=== PATIENT | male | born 1945 | race Caucasian/White ===

== ENCOUNTER 2016-12-06 09:37 | Inpatient (IN) | payer OTHER, MEDICARE ==
[~2016-12-06] VITALS: Ht 175.3 cm; Wt 88.4 kg
[2016-12-06] VITALS (17 sets, daily range): BP systolic 97–138; BP diastolic 61–82; PULSE 75–116; RESP 16–18; TEMP 98–98.6; O2SAT 94–100
[~2016-12-06 09:37] MED LIST: ASPI81 PO; DILT180C PO; FOLI1TAB PO; ISOS30TA17 PO; KLOR20TA6 PO; LAMO150T PO; LEVE500 PO; MAGN400 PO; MORP30SU PO; MSIR15 PO; NAPR500 PO; NITR.4 SL; PRAV40TA PO; PROZ20CA11 PO; RANI300T PO; REME30TA PO; VITA-13 PO; VITA10002 PO; XALA0.00 EACH EYE; [UNRECOGNIZED DRUG - CODE] TOP
[2016-12-06] MEDS ORDERED: NITROGLYCERIN 2% OINT 1 GM PACKET TOP ONE (10:00)
[2016-12-06] MEDS ORDERED: SODIUM CHLORID 0.9% 500 ML INJ 500 ML IV ONE (10:00)
[2016-12-06] MEDS ORDERED: SODIUM CHLORIDE 0.9% FLUSH 10 ML FLUSH IVF PRN (10:00)
[2016-12-06] MEDS ORDERED: ASPIRIN 81 MG CHEW TAB PO ONE (10:00)
[2016-12-06] MEDS ORDERED: DILTIAZEM HCL 25 MG/5 ML VIAL IVP ONE (10:15)
[2016-12-06] MEDS ORDERED: DILTIAZEM INJ 125 MG in SODIUM CHLORIDE 0.9% INJ 100 ML IV SCH (10:15)
[2016-12-06 10:23] LABS: AUTOMATED NEUTROPHIL # 3.1 TH/MM3 (1.8-7.7); BASOPHIL % 0.4 % (0.0-2.0); EOSINOPHIL % 0.5 % (0.0-4.0); HEMATOCRIT 46.2 % (39.0-51.0); HEMO FLAGS DIFF FINAL; LYMPH % 31.7 % (9.0-44.0); LYMPHOCYTE # 1.8 TH/MM3 (1.0-4.8); MEAN CELL VOLUME 83.8 FL (80.0-100.0); MEAN CORPUSCULAR HEMOGLOBIN 29.7 PG (27.0-34.0); MEAN CORPUSCULAR HGB CONC 35.4 % (32.0-36.0); NEUT % 55.4 % (16.0-70.0); PLATELET COUNT 150 TH/MM3 (150-450); RED BLOOD COUNT 5.51 MIL/MM3 (4.50-5.90); RED CELL DISTRIBUTION WIDTH 13.6 % (11.6-17.2); WHITE BLOOD COUNT 5.5 TH/MM3 (4.0-11.0)
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
[2016-12-06 10:32] LABS: APTT (PATIENT) 27.1 SEC (24.3-30.1); INTERNATIONAL NORMALIZED RATIO 1.1 RATIO; PROTHROMBIN TIME - PATIENT 11.8 SEC (9.8-11.6)
--- NOTE | 2016-12-06 10:34 | RADRPT ---
EXAM DATE/TIME: 12/06/2016 10:00 [facility] COMPARISON: CHEST SINGLE AP, February 03, 2016, 14:08. INDICATIONS : Chest pain that started today. MEDICAL HISTORY : Diabetes mellitus type II. Seizures. Cardiovascular disease Hypertension. SURGICAL HISTORY : None. ENCOUNTER: Initial ACUITY: 1 day PAIN SCORE: 10/10 LOCATION: Bilateral chest FINDINGS: A single view of the chest demonstrates the lungs to be symmetrically aerated without evidence of mas s, infiltrate or effusion. The cardiomediastinal contours are unremarkable. Osseous structures are intact. CONCLUSION: No acute disease. Eduardo Morocho MD on December 06, 2016 at 10:32 Board Certified Radiologist. This report was verified electronically.
[2016-12-06 10:36] LABS: ALT (GPT) 26 U/L (12-78); ANION GAP 11 MEQ/L (5-15); AST (GOT) 29 U/L (15-37); BICARBONATE 22.8 MEQ/L (21.0-32.0); BLOOD UREA NITROGEN 17 MG/DL (7-18); CHLORIDE 103 MEQ/L (98-107); GLOMERULAR FILTRATION RATE 58 ML/MIN (>89); MAGNESIUM 1.5 MG/DL (1.5-2.5); POTASSIUM 3.4 MEQ/L (3.5-5.1); SODIUM (NA) 137 MEQ/L (136-145)
[2016-12-06 10:40] LABS: ALKALINE PHOSPHATASE 42 U/L (45-117); TOTAL BILIRUBIN ADULT 0.5 MG/DL (0.2-1.0)
[2016-12-06] MEDS ORDERED: HEPARIN SODIUM - IV 10,000 UNITS/10 ML VIAL IV ONE (11:00)
--- NOTE | 2016-12-06 11:41 | HHI.HP ---
HPI Service [facility] Primary Care Physician [facility] Admission Diagnosis NSTEMI, Afib RVR Diagnoses: (1) NSTEMI (non-ST elevated myocardial infarction) (2) Atrial fibrillation with RVR Chief Complaint: Chest pain Travel History International Travel<30 Days: No Contact w/Intl Traveler <30 Da: No Traveled to Known Affected Are: No History of Present Illness Before meals 11 year-old male with a history of atrial fibrillation, diabetes type 2, legally blind in previous OR was brought to the ED by EMS for evaluation of substernal chest pain rated 8/10 in intensity associated with diaphoresis, shortness of breath and radiation across his chest. Patient states around 4:30 AM this morning he first experienced chest pressure, and decided to reach inside of his pocket to get his nitroglycerin sublingual however was unable to find his bottle. Patient reports that about a week ago he had his medication refill and may have taken only 3-4 pills over the past 7 days. As the the pain progressively got worse after 40 minutes, he call EMS. Patient was found to be in A. fib with RVR EMS, and his chest pain resolved with nitroglycerin. On arrival in ED he was free of chest pain. During my exam he denies any chest pain, shortness of breath. He has no GI bleed. Review of Systems Other 12 systems reviewed and are negative except for the ones mentioned in the history of present illness Past Family Social History Past Medical History Migraines Coronary artery disease COPD Seizure disorder- on Keppra, and Lamictal History of CVA, with posterior circulation infarct seen on CT imaging, and old lacunar type infarct in the right thalamus. 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 fib- on diltiazem, no blood thinners seen on his medication list but he states he is on a blood thinner Past Surgical History Left eye Reported Medications See EMR Allergies: Coded Allergies: Simvastatin (Verified Allergy, Severe, 03/05/16) PT STATES NOT ALLERGIC Tylenol (Verified Allergy, Severe, STATES DOCTOR SAID NOT TO TAKE IT., ) Family History Dad: heart disease Mom: lived to be 99 Social History Alcohol Use: Yes (RARE) Tobacco Use: Yes (1.5 PPD/ TRYING TO CUT BACK ) Physical Exam Vital Signs Vital Signs Date Time Temp Pulse Resp B/P Pulse Ox O2 Delivery O2 Flow Rate FiO2 12/06/16 11:15 87 16 123/79 95 Room Air 12/06/16 10:47 82 18 112/61 95 Room Air 12/06/16 10:40 94 Room Air 12/06/16 10:40 110 116/69 12/06/16 10:40 94 Room Air 12/06/16 09:54 116 18 94 Room Air 12/06/16 09:52 116 18 132/75 94 Room Air 12/06/16 09:43 98.1 106 18 132/75 94 Physical Exam GENERAL: This is a well-nourished, well-developed patient, in no apparent distress. SKIN: No rashes, ecchymoses or lesions. Cool and dry. HEAD: Atraumatic. Normocephalic. No temporal or scalp tenderness. EYES: Pupils equal round and reactive. Extraocular motions intact. No scleral icterus. No injection or drainage. ENT: Nose without bleeding, purulent drainage or septal hematoma. Throat without erythema, tonsillar hypertrophy or exudate. Uvula midline. Airway patent. NECK: Trachea midline. No JVD or lymphadenopathy. Supple, nontender, no meningeal signs. CARDIOVASCULAR: Regular rate and rhythm without murmurs, gallops, or rubs. RESPIRATORY: Clear to auscultation. Breath sounds equal bilaterally. No wheezes , rales, or rhonchi. GASTROINTESTINAL: Abdomen soft, non-tender, nondistended. No hepato-splenomegaly , or palpable masses. No guarding. MUSCULOSKELETAL: Extremities without clubbing, cyanosis, or edema. No joint tenderness, effusion, or edema noted. No calf tenderness. Negative Homans sign bilaterally. NEUROLOGICAL: Awake and alert. Cranial nerves II through XII intact. Motor and sensory grossly within normal limits. Five out of 5 muscle strength in all muscle groups. Normal speech. Laboratory Laboratory Tests Test 12/06/16 10:00 White Blood Count 5.5 Red Blood Count 5.51 Hemoglobin 16.3 Hematocrit 46.2 Mean Corpuscular Volume 83.8 Mean Corpuscular Hemoglobin 29.7 Mean Corpuscular Hemoglobin 35.4 Concent Red Cell Distribution Width 13.6 Platelet Count 150 Mean Platelet Volume 10.1 Neutrophils (%) (Auto) 55.4 Lymphocytes (%) (Auto) 31.7 Monocytes (%) (Auto) 12.0 Eosinophils (%) (Auto) 0.5 Basophils (%) (Auto) 0.4 Neutrophils # (Auto) 3.1 Lymphocytes # (Auto) 1.8 Monocytes # (Auto) 0.7 Eosinophils # (Auto) 0.0 Basophils # (Auto) 0.0 CBC Comment DIFF FINAL Differential Comment Prothrombin Time 11.8 Prothromb Time International 1.1 Ratio Activated Partial 27.1 Thromboplast Time Sodium Level 137 Potassium Level 3.4 Chloride Level 103 Carbon Dioxide Level 22.8 Anion Gap 11 Blood Urea Nitrogen 17 Creatinine 1.23 Estimat Glomerular Filtration 58 Rate Random Glucose 209 Calcium Level 8.7 Magnesium Level 1.5 Total Bilirubin 0.5 Aspartate Amino Transf 29 (AST/SGOT) Alanine Aminotransferase 26 (ALT/SGPT) Alkaline Phosphatase 42 Troponin I 1.19 B-Type Natriuretic Peptide 176 Total Protein 7.4 Albumin 3.2 Result Diagram: 12/06/16 1000 12/06/16 1000 Imaging Last Impressions Chest X-Ray 12/06/16 0955 Signed Impressions: Service Date/Time: Tuesday, December 06, 2016 10:00 - CONCLUSION: No acute disease. Eduardo Morocho MD Assessment and Plan Problem List: (1) NSTEMI (non-ST elevated myocardial infarction) ICD Code: I21.4 Status: Acute (2) Atrial fibrillation with RVR ICD Code: I48.91 Status: Acute (3) Diabetes mellitus, type II ICD Code: E11.9 Status: Acute (4) Benign hypertension ICD Code: I10 Status: Acute (5) Hyperlipidemia ICD Code: E78.5 Status: Acute (6) Hypokalemia ICD Code: E87.6 Status: Resolved (7) History of seizure ICD Code: Z87.898 Status: Acute Assessment and Plan 71-year-old man with Non-ST elevation OR: Continue ACS rule out per protocol with serial cardiac enzyme and EKG.cardiology consultation pending for evaluation for possible left heart catheterization. Check 2-D echo. Went with heparin drip/Nitropaste/beta loreto/Imdur/statin/ASA Atrial fibrillation rapid ventricular response: ACS ruled out per protocol; currently on Cardizem drip pending cardiology consultation Diabetes type 2: Hold oral hypoglycemic agent, start insulin sliding scale with fingerstick blood glucose monitoring Hyperlipidemia, hypertension, seizure disorder, diabetic neuropathy: Resume outpatient medications Hypokalemia: Replace electrolyte DVT prophylaxis: Heparin Code Status Full code Discussed Condition With Patient, ED physician Physician Certification 2 Midnight Certification Type: Admission for Inpatient Services Order for Inpatient Services The services are ordered in accordance with Medicare regulations or non- Medicare payer requirements, as applicable. In the case of services not specified as inpatient-only, they are appropriately provided as inpatient services in accordance with the 2-midnight benchmark. Estimated LOS (days): 2 days is the estimated time the patient will need to remain in the hospital, assuming treatment plan goals are met and no additional complications. Post-Hospital Plan: Not yet determined Riley Nava MD Dec 06, 2016 11:41
[2016-12-06] MEDS: HEPARIN-D5W INJ 250 ML IV SCH ×2 (11:43→20:27)
[2016-12-06] MEDS ORDERED: SODIUM CHLORIDE 0.9% FLUSH 10 ML FLUSH IV FLUSH PRN (11:45)
[2016-12-06] MEDS ORDERED: ACETAMINOPHEN/HYDROcodone 325 MG/7.5 MG TAB PO PRN (11:45)
[2016-12-06] MEDS ORDERED: ACETAMINOPHEN 500 MG CPLT PO PRN (11:45)
[2016-12-06] MEDS ORDERED: NITROGLYCERIN 2% OINT 1 GM PACKET TOP SCH (12:00)
[2016-12-06] MEDS ORDERED: GLUCAGON 1 MG/ML VIAL OTHER PRN (12:30)
[2016-12-06] MEDS ORDERED: DEXTROSE 50% IN WATER 50 ML VIAL(D50) IV PUSH PRN (12:30)
[2016-12-06] MEDS ORDERED: RESP: ALBUTEROL 2.5 MG/IPRATROPIUM 0.5 MG NEB (PRN) NEB (12:45)
[2016-12-06] MEDS ORDERED: NITROGLYCERIN-DEXTROSE INJ 250 ML ONE (12:54)
[2016-12-06] MEDS: ALUMINUM/MAGNESIUM/SIMETH 30 ML CUP PO SCH ×3 (13:00→20:26)
[2016-12-06] MEDS ORDERED: NAPR500T5 (13:31)
[2016-12-06] MEDS ORDERED: DILT180C56 PO (13:31)
[2016-12-06] MEDS ORDERED: NITR0.4S SL (13:31)
[2016-12-06] MEDS ORDERED: LEVE750T8 PO (13:31)
[2016-12-06] MEDS ORDERED: POTA-163 PO (13:31)
[2016-12-06] MEDS ORDERED: ASPI81CH CHEW (13:31)
[2016-12-06] MEDS ORDERED: ISOS30TA3 PO (13:31)
[2016-12-06] MEDS ORDERED: VITA100021 SL (13:31)
[2016-12-06] MEDS ORDERED: D-20TAB3 PO (13:31)
[2016-12-06] MEDS ORDERED: PRAV40TA2 PO (13:31)
[2016-12-06] MEDS ORDERED: POTASSIUM CHLORIDE 20 MEQ CONTROLLED RELEASE TAB PO ONE (14:00)
[2016-12-06] MEDS ORDERED: IOHEXOL 350 MG/ML 100 ML BTL (for Cath Lab) OTHER ONE (14:12)
[2016-12-06] MEDS ORDERED: HEPARIN-NS/PF INJ 500 ML ONE (14:27)
[2016-12-06] MEDS ORDERED: HEPARIN SODIUM - IV 10,000 UNITS/10 ML VIAL ONE (14:28)
[2016-12-06] MEDS ORDERED: VERAPAMIL HCL 5 MG/2 ML VIAL ONE (14:28)
[2016-12-06] MEDS ORDERED: MIDAZOLAM HCL 2 MG/2 ML VIAL ONE (14:28)
--- NOTE | 2016-12-06 14:37 | EKG ---
Date Performed: 12/06/2016 Time Performed: 12:41:11 PTAGE: 71 years EKG: ATRIAL FIBRILLATION MARKED LEFT AXIS DEVIATION LEFT BUNDLE BRANCH BLOCK ABNORMAL ECG NO SIG NIFICANT CHANGE FROM PRIOR ELECTROCARDIOGRAM. PREVIOUS TRACING : 03/05/2016 10.42 DOCTOR: Ezio Park Interpretating Date/Time 12/06/2016 14:36:07
--- NOTE | 2016-12-06 14:50 | EKG ---
Date Performed: 12/06/2016 Time Performed: 09:49:02 PTAGE: 71 years EKG: ATRIAL FIBRILLATION WITH RAPID VENTRICULAR RESPONSE INFERIOR MYOCARDIAL INFARCTION ABNORMAL ECG NO PREVIOUS TRACING DOCTOR: Ezio Park Interpretating Date/Time 12/06/2016 14:48:45
[2016-12-06] MEDS: INSULIN ASPART SUPPLEMENTAL SCALE SQ SCH ×2 (16:00→20:29)
[2016-12-06] MEDS ORDERED: HEPARIN SODIUM - IV 10,000 UNITS/10 ML VIAL IV PRN ×2 (17:00)
[2016-12-06] MEDS ORDERED: CEFAZOLIN INJ 500 MG in SODIUM CHLORIDE 0.9% IRR BTL 500 ML IRRIGATION SCH (17:30)
[2016-12-06] MEDS ORDERED: CHLORHEXIDINE GLUCONATE 4% SOLN 120 ML BTL TOPICAL SCH (17:30)
[2016-12-06] MEDS ORDERED: ceFAZolin 2 GM PREMIX 50 ML IV SCH (17:30)
[2016-12-06] MEDS ORDERED: PAPAVERINE INJ 60 MG, NITROGLYCERIN INJ 100 MCG, DILTIAZEM INJ 100 MG in SODIUM CHLORID... IRRIGATION SCH (17:30)
[2016-12-06] MEDS ORDERED: METOPROLOL TARTRATE 25 MG TAB PO SCH (17:30)
[2016-12-06] MEDS ORDERED: INSULIN REGULAR (IV INFUSION) 100 UNITS in SODIUM CHLORIDE 0.9% INJ 100 ML IV SCH (17:30)
[2016-12-06] MEDS ORDERED: PROZ20CA11 PO (17:47)
[2016-12-06] MEDS ORDERED: MSIR15 PO (17:47)
[2016-12-06] MEDS ORDERED: RANI150T PO (17:47)
[2016-12-06] MEDS ORDERED: LATA.005%O EACH EYE (17:47)
[2016-12-06] MEDS ORDERED: LAMO150T PO (17:47)
[2016-12-06] MEDS ORDERED: MORP1TAB25 PO (17:47)
[2016-12-06] MEDS ORDERED: FOLI1TAB4 PO (17:47)
[2016-12-06] MEDS ORDERED: MAGN400T2 PO (17:47)
[2016-12-06] MEDS ORDERED: REME30TA PO (17:47)
[2016-12-06 19:14] LABS: APTT (PATIENT) 35.7 SEC (24.3-30.1)
[2016-12-06] MEDS: SODIUM CHLORIDE 0.9% FLUSH 10 ML FLUSH IV FLUSH SCH (20:26)
[2016-12-06] MEDS: levETIRAcetam 250 MG TAB PO SCH (20:30)
[2016-12-06] MEDS ORDERED: TEMAZEPAM 15 MG CAP PO PRN (21:00)
[2016-12-06 22:20] LABS: HEMOGLOBIN A1a 0.7 %; HEMOGLOBIN Ao 82.8 %; HEMOGLOBIN LA1C 2.7 %
[2016-12-07] VITALS (25 sets, daily range): BP systolic 102–130; BP diastolic 64–80; PULSE 66–99; RESP 16–19; TEMP 97.6–98.5; O2SAT 95–98
[2016-12-07 00:06] LABS: BLOOD, URINE NEG (NEG); COMMENT (UR) CULT NOT INDICATED; CULTURE IF INDICATED CULT NOT INDICATED; GLUCOSE,URINE 300 mg/dL (NEG); KETONE, URINE NEG (NEG); MUCUS URINE FEW /lpf (OCC); NITRITE,URINE NEG (NEG); SQUAMOUS EPITHELIAL CELL URINE <1 /hpf (0-5); URINE COLOR YELLOW (YELLW/STRAW)
[2016-12-07 02:39] LABS: AUTOMATED NEUTROPHIL # 2.3 TH/MM3 (1.8-7.7); BASOPHIL % 0.7 % (0.0-2.0); EOSINOPHIL # 0.1 TH/MM3 (0-0.4); EOSINOPHIL % 1.4 % (0.0-4.0); HEMATOCRIT 41.4 % (39.0-51.0); HEMO FLAGS DIFF FINAL; LYMPH % 44.5 % (9.0-44.0); LYMPHOCYTE # 2.3 TH/MM3 (1.0-4.8); MEAN CELL VOLUME 83.8 FL (80.0-100.0); MEAN CORPUSCULAR HEMOGLOBIN 29.5 PG (27.0-34.0); MEAN CORPUSCULAR HGB CONC 35.2 % (32.0-36.0); MONO % 9.1 % (0.0-8.0); NEUT % 44.3 % (16.0-70.0); PLATELET COUNT 150 TH/MM3 (150-450); RED BLOOD COUNT 4.93 MIL/MM3 (4.50-5.90); RED CELL DISTRIBUTION WIDTH 13.8 % (11.6-17.2); WHITE BLOOD COUNT 5.3 TH/MM3 (4.0-11.0)
[2016-12-07 02:49] LABS: APTT (PATIENT) 42.5 SEC (24.3-30.1)
[2016-12-07 03:17] LABS: ANION GAP 7 MEQ/L (5-15); BICARBONATE 26.6 MEQ/L (21.0-32.0); BLOOD UREA NITROGEN 17 MG/DL (7-18); CHLORIDE 107 MEQ/L (98-107); GLOMERULAR FILTRATION RATE 81 ML/MIN (>89); HDL CHOLESTEROL 19.4 MG/DL (40.0-60.0); LDL CHOLESTEROL 66 MG/DL (0-99); POTASSIUM 3.7 MEQ/L (3.5-5.1); SODIUM (NA) 141 MEQ/L (136-145)
--- NOTE | 2016-12-07 05:31 | MB ---
cc: MARIZOL BANKS DATE OF CONSULTATION 12/06/2016 DATE OF 1945 HISTORY OF PRESENT ILLNESS A 71-year-old male patient of the [place], apparently has been having chest pain on and off for the past seven days, has used about 3 to 4 nitros, woke up about 04:30 this morning with substernal chest pain 8 out of 10, diaphoresis, shortness of breath, could not find his bottle of nitro, presented to the emergency room. He was found to have a non-STEMI. He was also found to be in atrial fibrillation with RVR, was on a Cardizem drip which has since been discontinued. The patient went to the [facility] by Dr. Chairez and showed an 80% proximal LAD, mid-distal LAD 80%, diagonal 70%. The circ was 20%, OM2 80%. The IFR of the approximately LAD was 0.69. Echo is pending to evaluate his ejection fraction. We were consulted to evaluate for coronary artery bypass grafting. PAST MEDICAL HISTORY 1. Coronary artery disease. Apparently, per the patient he has had multiple MIs in the past, yet he has not had kind of heart catheterization. 2. He did have a bilateral occipital stroke in 1994 with residual cortical blindness and seizure disorder. 3. Ulnar neuropathy. 4. Gastroesophageal reflux disease. 5. Osteoarthritis. 6. Syncope. 7. Hyperlipidemia 8. Tobacco abuse. 9. Moderate major depression disorder. 10. Anxiety. 11. Seizure disorder. 12. Insomnia. 13. Legally blind. 13. History of atrial fibrillation. PAST SURGICAL HISTORY No past surgical history per the patient. ALLERGIES SIMVASTATIN. TYLENOL. HOMES MEDICATIONS 1. Aspirin. 2. Vitamin D3. 3. Cardizem. 4. Imdur. 5. Lantoprost eye drops. 6. Keppra. 7. Morphine sulfate; he takes 15 mg q. 12 p.r.n. for pain. 8. For breakthrough otherwise he has morphine 30 one p.o. b.i.d. for pain. 9. Nitro p.r.n. FAMILY HISTORY Father had history of heart disease. Mother lived to be the age of 99. SOCIAL HISTORY The patient lives alone, continues to smoke 1-1/2 packs per day. REVIEW OF SYSTEMS IN GENERAL: No night sweats, fever, heat and cold intolerance. SKIN: No psoriasis, itch nor hives. HEENT: The patient is again legally blind. No hearing loss. RESPIRATORY: Some shortness of breath. CARDIOVASCULAR: As above in the HPI. GASTROINTESTINAL: No diarrhea, vomiting. GENITOURINARY: No burning, frequency, urgency. 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 ENDOCRINOLOGY: Positive for diabetes mellitus type 2. PHYSICAL EXAMINATION VITAL SIGNS: Blood pressure 120/70, heart rate of 86, O2 sat 98 on 2 liters. GENERAL: The patient is awake and alert. HEAD: Normocephalic, atraumatic. Oral mucosa pink, moist. NECK: Supple. No JVD. HEART SOUNDS: S1-S2. Regular rate and rhythm. No audible rubs, murmurs, gallops. LUNGS: He has got some faint expiratory wheeze, equal bilaterally. ABDOMEN: Obese, soft, nontender. EXTREMITIES: No cyanosis, clubbing or edema. LABORATORY FINDINGS Hemoglobin 16, hematocrit of 46, white cell count of 5.5, platelet count 150. Sodium 137, potassium 3.4, BUN of 17, creatinine 1.23, glucose 209. Troponin 1.19, INR 1.1. CHEST X-RAY No acute disease. IMPRESSION 1. This is a 71-year-old [facility] patient with a non-STEMI, multivessel disease. EF is pending per echocardiogram. The cardiac cath films will be reviewed by Dr. Marizol Banks to evaluate for possible surgery. Full workup is still pending. 2. Diabetes mellitus. 3. Legally blind. 4. History of atrial fibrillation. 5. History of CVA with old lacunar infarct in the right thalamus. 6. Nicotine dependence. 7. Anxiety. 8. Seizure disorder. 9. Depression. 10. Further planning and timing for surgery as per Dr. Marizol Banks. Dictated by: PEDRO LUIS Dukes MD NABIL Patrick/JULIETTE /5:23 PM /8:27 AM
--- NOTE | 2016-12-07 06:54 | EKG ---
Date Performed: 12/06/2016 Time Performed: 22:21:08 PTAGE: 71 years EKG: Probable atrial fibrillation with borderline controlled response. Left axis deviation IV co nduction defect Inferior infarct - age undetermined Nonspecific ST-T wave changes Abnormal ECG COMPAR ED TO PRIOR ELECTROCARDIOGRAM, T wave changes are more prominent. PREVIOUS TRACING : 12/06/2016 12.41 DOCTOR: Ezio Park Interpretating Date/Time 12/07/2016 06:52:59
[2016-12-07] MEDS: INSULIN ASPART SUPPLEMENTAL SCALE SQ SCH ×4 (07:00→20:45)
[2016-12-07] MEDS: ASPIRIN 81 MG CHEW TAB PO SCH (07:47)
[2016-12-07] MEDS: PRAVASTATIN SOD 40 MG TAB PO SCH (07:47)
[2016-12-07] MEDS: ALUMINUM/MAGNESIUM/SIMETH 30 ML CUP PO SCH ×5 (07:47→20:52)
[2016-12-07] MEDS: SODIUM CHLORIDE 0.9% FLUSH 10 ML FLUSH IV FLUSH SCH ×2 (07:48→20:50)
[2016-12-07] MEDS: MORPHINE SULFATE 4 MG/ML INJ IV PRN ×2 (07:51→16:28)
--- NOTE | 2016-12-07 07:53 | MB ---
cc: SAW BEAULIEU DO DATE OF CONSULTATION 12/06/2016 REASON FOR CONSULTATION NSTEMI with chest pain. HISTORY OF PRESENT ILLNESS Mr. Holman is a pleasant 71-year-old male who presents to [facility] emergency room on December 06, 2016 due to chest pain. He states that he woke up around 05:00 a.m. this morning and he experienced chest pressure. The chest pressure was in the center of his chest and is his typical anginal symptoms for sometime. He went to take his nitroglycerin and was unable to find his bottle within his pocket. Chest pressure got worse and he decided he should call 9-1-1. Per EMS, the patient had empty bottles of nitroglycerin all over the house, but when asking the patient about this, he states that some of those are from years ago and he has just not thrown them away. It appears that he takes usually a nitroglycerin almost every day, however over the past few days, he has been taking three to four nitroglycerin. On arrival to the emergency room, he was found to be in the atrial fibrillation with RVR and started on a Cardizem drip. He also was having chest pain and was given nitroglycerin and the chest pain stopped. On my seeing him, he is currently hemodynamically stable, although blood pressure is mildly low. His heart rate has now been controlled on a Cardizem drip at 5 mg per hour and I have since stopped his Cardizem drip. He was starting to have some chest pain when I saw him so he was started on a nitroglycerin drip. PAST MEDICAL HISTORY 1. Coronary artery disease 2. Migraines 3. Atrial fibrillation 4. COPD 5. Seizure disorder 6. History of CVA. 7. History of encephalopathy. 8. 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 PAST SURGICAL HISTORY Surgery on his left thigh. ALLERGIES 1. SIMVASTATIN FOR WHICH THE PATIENT STATES HE IS NOT ALLERGIC. 2. TYLENOL MEDICATIONS 1. Magnesium oxide 400 mg daily 2. Lamotrigine 150 mg b.i.d. 3. Keppra 750 mg b.i.d. 4. Prozac 20 mg daily 5. Remeron 30 mg every night 6. Cardizem CD 180 mg daily 7. Ranitidine 150 mg daily 8. Pravastatin 40 mg daily 9. Imdur ER 30 mg daily 10. Nitro sublingual as needed 11. Aspirin 81 mg daily 12. Morphine ER 30 mg b.i.d. 13. Morphine IR 15 mg every 6 hours as needed for pain 14. Xalatan ophthalmic drops each eye every night 15. Potassium chloride 20 mEq daily 16. Folate 1 mg daily FAMILY HISTORY Denies premature coronary artery disease or sudden cardiac within the family. SOCIAL HISTORY The patient drinks alcohol rarely. He does continue to smoke and smokes anywhere from three-quarters of a pack to two packs per day with an average of 1.5 packs per day. He is legally blind. His neighbor helps with his pills weekly. REVIEW OF SYSTEMS 14-systems were reviewed including osteopathic pertinent positives and negatives as above, otherwise negative. PHYSICAL EXAMINATION VITAL SIGNS: Temperature 98.1, heart rate 85, blood pressure 97/67, respirations 18, pulse ox 100% on two liters. GENERAL: The patient appears in mild distress due to chest pain. Alert awake and oriented x3. He looks older than his stated age. HEAD, EYES, EARS, NOSE, AND THROAT: Pupils are round, equal and reactive. Mucous membranes moist. NECK: Supple. No JVD at 45 degrees. No carotid bruits heard bilaterally. Carotid upstroke is brisk in nature. HEART: Irregularly irregular. Positive first and second heart sounds with no murmurs, gallops or rubs. LUNGS: Decreased breath sounds bilaterally but no overt wheezes, rales or rhonchi. ABDOMEN: Soft, nontender, nondistended. No organomegaly noted. EXTREMITIES: Show no clubbing, cyanosis or edema. Femoral and distal pulses intact bilaterally. NEUROLOGIC: No focal deficits. SKIN: Warm, dry and intact. OSTEOPATHIC: Mild lordosis. No kyphoscoliosis or paraspinal tender points. LABORATORY FINDINGS Hemoglobin 16.3, hematocrit 46.2, platelets 150. Potassium 3.4, BUN 17, creatinine 1.23, troponin 1.19, BNP 176. Electrocardiogram (December 06, 2016 at 1241) atrial fibrillation, left axis deviation, left bundle branch block. IMPRESSIONS 1. Chest pain concerning for angina. 1. NSTEMI 2. A. fib with RVR on arrival with a history of paroxysmal atrial fibrillation 3. Diabetes mellitus type 2 4. Hypertension 5. Hyperlipidemia 6. History of seizures. 7. Legal blindness 8. Tobacco abuse 9. History of CVA. RECOMMENDATIONS 1. Mr. Holman appears to have had an anginal episode this morning and has troponins which are positive. Because of this, as well as his current chest pain, he has been started on a heparin drip and started on a nitroglycerin drip. 2. He will be taken to the manager cath lab as soon as possible. Risks, benefits and alternatives were explained to him and he consents to such. 3. His atrial fibrillation is currently controlled and because of his hypotension, I stopped his Cardizem drip. 4. As far as anticoagulation long-term for his atrial fibrillation, it appears that he sees someone at the [facility] and they did not feel he was an anticoagulation candidate. In discussing with him, he has a tendency to have falls and I agree that he most likely is not a long-term anticoagulation candidate. 5. We will check a 2-D echo to look at his overall left ventricular function, cardiac structure and possible valvulopathies. 6. I spoke to him for greater than three minutes about tobacco cessation which he is attempting to cut down. 7. Further recommendations will be made after coronary visualization. Thank you for allowing me to see Andrea Holman. If there are any questions, please do not hesitate to call. Saw Beaulieu DO VGP/DJL /10:50 PM /7:35 AM
--- NOTE | 2016-12-07 07:59 | MA ---
cc: SAW BEAULIEU DO DATE OF PROCEDURE December 06, 2016 PROCEDURE Left heart catheterization, coronary angiogram, IFR of LAD, moderate sedation 45 minutes. PREPROCEDURE DIAGNOSIS N-STEMI, chest pain concerning for angina. POSTPROCEDURE DIAGNOSES N-STEMI. Multivessel coronary artery disease. Atrial fibrillation. CONTRAST USED 80 cc. FLUOROSCOPY 9.1 minutes MODERATE SEDATION 45 minutes PROCEDURAL SUMMARY Andrea Holman is a pleasant 71-year-old male who presented with chest pain and was found to have elevation of his troponins. Because of this he was recommended cardiac catheterization. The risks, benefits and alternatives were explained to him and he consented as such. He was brought to the lab and prepped in the usual sterile fashion. The right radial artery was accessed using a modified Seldinger technique and placement of a 5/6 Malay sheath. This was easily aspirated and flushed. The JR-4 catheter was taken up and over a J-wire and used to cross into the left ventricle to measure left ventricular end-diastolic pressure. This was pulled back across the aortic valve showing no significant gradient of aortic stenosis. The JR-4 catheter was used for selective angiography of the right coronary artery system. The JR-4 was then exchanged for a JL-3.5 which was used for selective angiography of the left coronary system. Because of the consideration of significant disease in the proximal LAD along the bifurcation with the diagonal, it was felt that this should be further interrogated with IFR/FFR measurements. The JL-3.5 was exchanged for an EBU 3.5 guide. The patient was given additional heparin for an anticoagulant. A [place] wire was then placed distally in the LAD and IFR measurements were taken. The [place] wire was then removed and the EBU catheter was removed. A TR band was placed for hemostasis at the radial arteriotomy site. The patient left the Cardiac Catheterization Lab cardiovascularly stable. FINDINGS The left main is a normal-size vessel with 30% stenosis at the ostium. It bifurcates into an LAD and diagonal. The LAD is a normal-appearing vessel which tapers down distally. At the takeoff of the first diagonal there appears to be a 70-80% stenosis. The LAD has one major diagonal and this appears to have a 70% stenosis at the ostium. Distally the LAD appears to have diffuse 30% disease. The left circumflex is a normal-sized vessel which gives off two major obtuse marginals. The second obtuse marginal appears to have an 80% mid-stenosis. The right coronary artery is a normal-sized vessel and dominant in nature. The cyw-me-viyrpr portion of it appears to have diffuse 50% disease. The LVEDP is 3. FFR It appears that the patient does have an obtuse marginal lesion but there is concern for the proximal LAD bifurcation at the first diagonal being somewhat significant. It is felt at this time that this should be further interrogated because if this is significant, it would change his management. FFR wire was placed distally and IFR measurements were taken at 0.69 showing significant stenosis. IMPRESSIONS 1. N-STEMI. 2. Chest pain concerning for angina. 3. Multivessel coronary artery disease with significant proximal LAD, ostial first diagonal, mid-second obtuse marginal. 4. Atrial fibrillation. RECOMMENDATIONS 1. Because of Mr. Holman multivessel disease, specifically with the proximal LAD in a diabetic, I feel his better revascularization option would be for coronary artery bypass grafting. 2. He is currently chest pain-free and so we will place him on a heparin drip 1 hour after his TR band is removed. 3. If he does have chest pain, he will be restarted on a low-dose nitroglycerin drip. 4. We will check a 2-D echo to look at his overall left ventricular function, cardiac structure and possible valvopathies. 5. I did discuss the case with CT Surgery who will see him in consideration of coronary artery bypass grafting. Thank you for allowing me to see Andrea Holman. If there are any questions, please do not hesitate to call. Saw Beaulieu DO VGP/SSB /11:03 PM /7:47 AM
[2016-12-07] MEDS ORDERED: ENOXAPARIN SODIUM 40 MG/0.4 ML SYRINGE SQ SCH (09:00)
[2016-12-07] MEDS: ISOSORBIDE MONONITRATE 30 MG TAB PO SCH (09:10)
[2016-12-07] MEDS: levETIRAcetam 250 MG TAB PO SCH ×2 (09:10→20:50)
--- NOTE | 2016-12-07 09:59 | HHI.PR ---
Subjective Remarks Follow-up non-ST elevation RI/atrial fibrillation with rapid ventricular response /now multivessel disease 12/07/16-patient seen and examined, currently denies any chest pain or shortness of breath since admission. Status post left heart catheterization . Case discussed with cardiology this morning. Objective Vitals Vital Signs Date Time Temp Pulse Resp B/P Pulse Ox O2 Delivery O2 Flow Rate FiO2 12/07/16 09:00 98 12/07/16 08:00 92 12/07/16 07:30 97.6 86 19 112/71 95 12/07/16 07:23 89 12/07/16 06:00 93 12/07/16 05:00 85 12/07/16 04:00 72 12/07/16 03:00 83 12/07/16 03:00 98.5 83 16 102/80 98 12/07/16 02:00 99 12/07/16 01:00 94 12/07/16 00:00 92 12/06/16 23:00 98.4 86 18 138/82 96 12/06/16 23:00 86 12/06/16 22:15 94 12/06/16 21:00 82 12/06/16 20:00 84 12/06/16 19:00 87 12/06/16 19:00 98.6 87 18 135/81 97 12/06/16 18:01 93 12/06/16 17:53 98.0 75 18 133/76 96 12/06/16 17:07 80 12/06/16 13:43 86 16 122/75 98 Nasal Cannula 2 12/06/16 13:04 88 121/76 100 12/06/16 12:49 85 18 97/67 100 Nasal Cannula 2 12/06/16 11:48 85 16 107/79 95 12/06/16 11:15 87 16 123/79 95 Room Air 12/06/16 10:47 82 18 112/61 95 Room Air 12/06/16 10:40 94 Room Air 12/06/16 10:40 110 116/69 12/06/16 10:40 94 Room Air I/O 12/06/16 12/06/16 12/06/16 12/07/16 12/07/16 12/07/16 07:00 15:00 23:00 07:00 15:00 23:00 Intake Total 120 ml 872 ml Output Total 550 ml Balance 120 ml 322 ml Intake Oral 120 ml 720 ml IV Total 152 ml Output Urine Total 550 ml # Bowel Movements 0 1 Result Diagram: 12/07/16 0220 12/07/16 022 Imaging Last Impressions Chest X-Ray 12/06/16 0955 Signed Impressions: Service Date/Time: Tuesday, December 06, 2016 10:00 - CONCLUSION: No acute disease. Eduardo Morocho MD Objective Remarks GENERAL: NAD SKIN: Warm and dry. HEAD: Normocephalic. EYES: No scleral icterus. No injection or drainage. NECK: Supple, trachea midline. No JVD or lymphadenopathy. CARDIOVASCULAR: Regular rate and rhythm without murmurs, gallops, or rubs. RESPIRATORY: Breath sounds equal bilaterally. No accessory muscle use. GASTROINTESTINAL: Abdomen soft, non-tender, nondistended. MUSCULOSKELETAL: No cyanosis, or edema. BACK: Nontender without obvious deformity. No CVA tenderness. A/P Problem List: (1) Multi-vessel coronary artery stenosis ICD Code: I25.10 Status: Acute (2) NSTEMI (non-ST elevated myocardial infarction) ICD Code: I21.4 Status: Acute (3) Atrial fibrillation with RVR ICD Code: I48.91 Status: Acute (4) Diabetes mellitus, type II ICD Code: E11.9 Status: Acute (5) Benign hypertension ICD Code: I10 Status: Acute (6) Hyperlipidemia ICD Code: E78.5 Status: Acute (7) Hypokalemia ICD Code: E87.6 Status: Resolved (8) History of seizure ICD Code: Z87.898 Status: Acute Assessment and Plan 71-year-old man with Multivessel coronary artery stenosis: Status post left heart catheterization with finding of Multivessel coronary artery disease with significant proximal LAD, ostial first diagonal, mid-second obtuse marginal; for which cardiothoracic surgery has been consulted for evaluation of CABG. Continue with heparin drip/Imdur/Statin/ASA/Nitro SL Non-ST elevation RI: Status post left heart catheterization 12/06/16 with finding of multivessel coronary artery disease stenosis. Appreciate input from cardiology Check 2-D echo. Continue heparin drip/Nitro SL/Imdur/statin/ASA Atrial fibrillation rapid ventricular response: currently on Cardizem drip and appreciate input from cardiology Diabetes type 2: Hold oral hypoglycemic agent, continue insulin sliding scale with fingerstick blood glucose monitoring Hyperlipidemia, hypertension, seizure disorder, diabetic neuropathy: Continue outpatient medications Hypokalemia: Replace electrolyte DVT prophylaxis: Heparin Riley Nava MD Dec 07, 2016 09:59
--- NOTE | 2016-12-07 12:46 | PD.CARD.PN ---
Subjective Subjective Remarks No chest pain, no shortness of breath Mild chest pain over night, started on Nitro gtt... currently weaning down Objective Medications Current Medications Medications (Trade) Dose Ordered Sig/Romie Route Start Time Stop Time Status Last Admin (Cardizem Inj/NS Inj) 125 ml @ 0 mls/hr TITRATE IV 12/06/16 10:15 12/06/16 11:00 (Heparin Inj) 5,000 units UNSCH PRN IV 12/06/16 17:00 Heparin Sodium (Porcine) 2500 units 2,500 units UNSCH PRN IV 12/06/16 17:00 (Heparin-D5W Inj) 250 ml @ 0 mls/hr TITRATE IV 12/06/16 11:00 12/06/16 20:27 (NS Flush) 2 ml BID IV FLUSH 12/06/16 21:00 12/07/16 07:48 (NS Flush) 2 ml UNSCH PRN IV FLUSH 12/06/16 11:45 (Aspirin Chew) 162 mg DAILY PO 12/07/16 09:00 12/07/16 07:47 (Nitrostat Sl) 0.4 mg Q5M PRN SL 12/06/16 11:45 (Tylenol) 500 mg Q4H PRN PO 12/06/16 11:45 ([place] 7.5-325 Mg) 1 tab Q4H PRN PO 12/06/16 11:45 (Morphine Inj) 2 mg Q5M PRN IV 12/06/16 11:45 12/07/16 07:51 (Mag-Al Plus Susp Liq) 30 ml QID PO 12/06/16 13:00 12/07/16 07:47 (Restoril) 15 mg HS PRN PO 12/06/16 21:00 (D50w (Vial) Inj) 25 ml UNSCH PRN IV PUSH 12/06/16 12:30 (Glucagon Inj) 1 mg UNSCH PRN OTHER 12/06/16 12:30 (Imdur) 30 mg DAILY PO 12/07/16 09:00 12/07/16 09:10 (Keppra) 750 mg BID PO 12/06/16 21:00 12/07/16 09:10 (Pravachol) 40 mg DAILY PO 12/07/16 09:00 12/07/16 07:47 Vital Signs / I&O Vital Signs Date Time Temp Pulse Resp B/P Pulse Ox O2 Delivery O2 Flow Rate FiO2 12/07/16 12:00 66 12/07/16 11:00 97.9 90 18 130/66 96 12/07/16 11:00 85 12/07/16 10:00 95 12/07/16 09:00 98 12/07/16 08:00 92 12/07/16 07:30 97.6 86 19 112/71 95 12/07/16 07:23 89 12/07/16 06:00 93 12/07/16 05:00 85 12/07/16 04:00 72 12/07/16 03:00 83 12/07/16 03:00 98.5 83 16 102/80 98 12/07/16 02:00 99 12/07/16 01:00 94 12/07/16 00:00 92 12/06/16 23:00 98.4 86 18 138/82 96 12/06/16 23:00 86 12/06/16 22:15 94 12/06/16 21:00 82 12/06/16 20:00 84 12/06/16 19:00 87 12/06/16 19:00 98.6 87 18 135/81 97 12/06/16 18:01 93 12/06/16 17:53 98.0 75 18 133/76 96 12/06/16 17:07 80 12/06/16 13:43 86 16 122/75 98 Nasal Cannula 2 12/06/16 13:04 88 121/76 100 12/06/16 12:49 85 18 97/67 100 Nasal Cannula 2 I/O 12/06/16 12/06/16 12/06/16 12/07/16 12/07/16 12/07/16 07:00 15:00 23:00 07:00 15:00 23:00 Intake Total 120 ml 872 ml Output Total 550 ml Balance 120 ml 322 ml Intake Oral 120 ml 720 ml IV Total 152 ml Output Urine Total 550 ml # Bowel Movements 0 1 Physical Exam GENERAL: NAD, AAOx3 SKIN: Warm and dry. HEAD: Atraumatic. Normocephalic. EYES: Pupils equal and round. No scleral icterus. No injection or drainage. ENT: No nasal bleeding or discharge. Mucous membranes pink and moist. NECK: Trachea midline. No JVD. CARDIOVASCULAR: Irregularly irregular RESPIRATORY: No accessory muscle use. Decreased breath sounds bilaterally GASTROINTESTINAL: Abdomen soft, non-tender, nondistended. Hepatic and splenic margins not palpable. MUSCULOSKELETAL: Extremities without clubbing, cyanosis, or edema. No obvious deformities. Right radial no hematoma, neurovascularly intact distally NEUROLOGICAL: Awake and alert. No obvious cranial nerve deficits. Motor grossly within normal limits. Five out of 5 muscle strength in the arms and legs. Normal speech. PSYCHIATRIC: Appropriate mood and affect; insight and judgment normal. Laboratory Laboratory Tests Test 12/06/16 12/06/16 12/06/16 12/07/16 17:20 18:50 23:50 02:20 Nasal Screen MRSA (PCR) NEGATIVE Activated Partial 35.7 SEC 42.5 SEC Thromboplast Time Total Creatine Kinase 74 U/L 77 U/L Troponin I 1.37 NG/ML 1.18 NG/ML Urine Color YELLOW Urine Turbidity CLEAR Urine pH 6.0 Urine Specific Ash 1.050 Urine Protein 100 mg/dL Urine Glucose (UA) 300 mg/dL Urine Ketones NEG mg/dL Urine Occult Blood NEG Urine Nitrite NEG Urine Bilirubin NEG Urine Urobilinogen 2.0 MG/DL Urine Leukocyte Esterase NEG Urine RBC 2 /hpf Urine WBC 1 /hpf Urine Squamous Epithelial <1 /hpf Cells Urine Mucus FEW /lpf Microscopic Urinalysis Comment CULT NOT INDICATED White Blood Count 5.3 TH/MM3 Red Blood Count 4.93 MIL/MM3 Hemoglobin 14.6 GM/DL Hematocrit 41.4 % Mean Corpuscular Volume 83.8 FL Mean Corpuscular Hemoglobin 29.5 PG Mean Corpuscular Hemoglobin 35.2 % Concent Red Cell Distribution Width 13.8 % Platelet Count 150 TH/MM3 Mean Platelet Volume 9.7 FL Neutrophils (%) (Auto) 44.3 % Lymphocytes (%) (Auto) 44.5 % Monocytes (%) (Auto) 9.1 % Eosinophils (%) (Auto) 1.4 % Basophils (%) (Auto) 0.7 % Neutrophils # (Auto) 2.3 TH/MM3 Lymphocytes # (Auto) 2.3 TH/MM3 Monocytes # (Auto) 0.5 TH/MM3 Eosinophils # (Auto) 0.1 TH/MM3 Basophils # (Auto) 0.0 TH/MM3 CBC Comment DIFF FINAL Differential Comment Sodium Level 141 MEQ/L Potassium Level 3.7 MEQ/L Chloride Level 107 MEQ/L Carbon Dioxide Level 26.6 MEQ/L Anion Gap 7 MEQ/L Blood Urea Nitrogen 17 MG/DL Creatinine 0.93 MG/DL Estimat Glomerular Filtration 81 ML/MIN Rate Random Glucose 104 MG/DL Calcium Level 8.0 MG/DL Triglycerides Level 93 MG/DL Cholesterol Level 104 MG/DL LDL Cholesterol 66 MG/DL HDL Cholesterol 19.4 MG/DL Cholesterol/HDL Ratio 5.36 RATIO Test 12/07/16 10:50 Activated Partial 42.0 SEC Thromboplast Time Assessment and Plan Problem List: (1) Multi-vessel coronary artery stenosis (2) Atrial fibrillation with RVR (3) NSTEMI (non-ST elevated myocardial infarction) (4) Hyperlipidemia (5) Diabetes mellitus, type II (6) History of seizure (7) Benign hypertension (8) Tobacco abuse Assessment and Plan 1) MVCAD/NSTEMI, placed on heparin drip 2) Wean nitro gtt as possible 3) Echo pending 4) Await CT surgery work up 5) 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
--- NOTE | 2016-12-07 13:36 | RADRPT ---
EXAM DATE/TIME: 12/07/2016 10:46 [facility] COMPARISON: No previous studies available for comparison. INDICATIONS : Preop cardiac surgery. MEDICAL HISTORY : CVA. Seizure. Blindness. CAD. Hypercholesterol. Afib. Hypertension. Diabetic. SURGICAL HISTORY : None. ENCOUNTER: Initial ACUITY: 1 day PAIN SCORE: 0/10 LOCATION: Bilateral leg. TECHNIQUE: Venous ultrasound of the left and right leg was performed from the inguinal ligament to the proximal calf. Real-time, color Doppler and spectral tracing, compression and augmentation techniques were us ed. FINDINGS: RIGHT LEG: There is normal compressibility of the deep venous system from the inguinal region to the proximal ca lf. No echogenic clot is seen in the lumen of the common femoral, femoral, popliteal, and posterior tibial veins. There is a normal response of the venous system to proximal and distal augmentation an d respiration. LEFT LEG: There is normal compressibility of the deep venous system from the inguinal region to the proximal ca lf. No echogenic clot is seen in the lumen of the common femoral, femoral, popliteal, and posterior tibial veins. There is a normal response of the venous system to proximal and distal augmentation an d respiration. CONCLUSION: No evidence of deep venous thrombosis within the lower extremities. Eduardo Morocho MD on December 07, 2016 at 13:34 Board Certified Radiologist. This report was verified electronically.
--- NOTE | 2016-12-07 14:27 | RADRPT ---
EXAM DATE/TIME: 12/07/2016 10:55 [facility] COMPARISON: No previous studies available for comparison. INDICATIONS : Preop cardiac surgery. MEDICAL HISTORY : CVA. Seizure. Blindness. CAD. Hypercholesterol. Afib. Diabetic. SURGICAL HISTORY : None. ENCOUNTER: Initial ACUITY: 1 day PAIN SCORE: 0/10 LOCATION: Bilateral leg. GREATER SAPHENOUS VEIN THIGH: PROXIMAL: Right 5 mm Left 5 mm MID: Right 2 mm Left 2 mm DISTAL: Right 2 mm Left 3 mm CALF: PROXIMAL: Right 2 mm Left 3 mm MID: Right 2 mm Left 2 mm DISTAL: Right 2 mm Left 3 mm FINDINGS: The venous system of the lower extremities are patent by color Doppler imaging. Measurements of the leg veins (in mm) are listed above. CONCLUSION: Greater saphenous veins are patent bilaterally with measurements as above. Holland Borjas MD on December 07, 2016 at 14:24 Board Certified Radiologist. This report was verified electronically.
--- NOTE | 2016-12-07 15:09 | RADRPT ---
EXAM DATE/TIME: 12/07/2016 11:15 [facility] COMPARISON: No previous studies available for comparison. INDICATIONS : Preop cardiac surgery. MEDICAL HISTORY : Stroke. Seizures. Myocardial infarction. Legally blind right eye. Neck pain. No teeth. Neurological p roblems. Hypocholesterolemia. Chest pain. Diabetes. SURGICAL HISTORY : Cataract surgery left eye. ENCOUNTER: Initial ACUITY: 1 day PAIN SCORE: 0/10 LOCATION: Bilateral neck PEAK SYSTOLIC VELOCITIES (cm/sec): ICA/CCA RATIO: Right: 1.1 Left: 1.0 ICA: Right: 47 Left: 63 CCA: Right: 44 Left: 60 ECA: Right: 71 Left: 70 VERTEBRAL: Right: 37 antegrade Left: 37 antegrade Elevated flow velocities and ICA/CCA ratios have been found to correlate with increased degrees of vessel stenosis, calculated as percentage of diameter relative to a normal segment of distal ICA/CCA FINDINGS: Mild calcified heterogeneous plaque is seen in the carotid bifurcations bilaterally. RIGHT CAROTID: No significant stenosis is visualized. The waveforms are within normal limits. LEFT CAROTID: No significant stenosis is visualized. The waveforms are within normal limits. VERTEBRAL ARTERIES: Antegrade flow is seen in both vertebral arteries. MISCELLANEOUS: None. CONCLUSION: Mild heterogeneous plaque seen bilaterally in the carotid bifurcations. No evidence of hemodynamically significant stenosis. Billy Oliva MD on December 07, 2016 at 14:55 Board Certified Radiologist. This report was verified electronically.
--- NOTE | 2016-12-07 15:18 | EC ---
Study Study Date:12/07/2016 STUDY CONCLUSIONS SUMMARY - Left ventricle: The cavity size was normal. Wall thickness was normal. Systolic function was moderately reduced. The estimated ejection fraction was in the range of 35% to 40%. Diffuse hypokinesis. - Mitral valve: Mild to moderate regurgitation. - Tricuspid valve: Mild regurgitation. If LV function is below 40, please consider prescribing an ACEI or ARB or document rationale for non-use. PROCEDURE DATA STUDY STATUS: Elective. Procedure: Transthoracic echocardiography. Image quality was fair. Scanning was performed from the parasternal, apical, and subcostal acoustic windows. Study completion: The patient tolerated the procedure well. Transthoracic echocardiography. M-mode, complete 2D, complete spectral Doppler, and color Doppler. Patient status: Inpatient. CARDIAC ANATOMY LEFT VENTRICLE: The cavity size was normal. Wall thickness was normal. Systolic function was moderately reduced. The estimated ejection fraction was in the range of 35% to 40%. Diffuse hypokinesis. AORTIC VALVE: Trileaflet; normal thickness leaflets. Doppler: Transvalvular velocity was within the normal range. There was no stenosis. No regurgitation. AORTA: Aortic root: The aortic root was normal in size. MITRAL VALVE: Structurally normal valve. Doppler: Transvalvular velocity was within the normal range. There was no evidence for stenosis. Mild to moderate regurgitation. LEFT ATRIUM: The atrium was normal in size. RIGHT VENTRICLE: The cavity size was normal. Wall thickness was normal. PULMONIC VALVE: Doppler: Transvalvular velocity was within the normal range. There was no evidence for stenosis. No regurgitation. TRICUSPID VALVE: Structurally normal valve. Doppler: Transvalvular velocity was within the normal range. Mild regurgitation. PULMONARY ARTERY: The main pulmonary artery was normal-sized. Systolic pressure was within the normal range. RIGHT ATRIUM: The atrium was normal in size. PERICARDIUM: There was no pericardial effusion. SYSTEMIC VEINS: Inferior vena cava: The vessel was normal in size. BASIC MEASUREMENTS ADULT Normal Left ventricle LV internal dimension, ED, chordal level, 47.4 mm 43-52 PLAX LV internal dimension, ES, chordal level, *40.5 mm 23-38 PLAX Fractional shortening, chordal level, PLAX *15 % >29 LV posterior wall thickness, ED 8.51 mm IVS/LVPW ratio, ED 1.19 <1.3 Ventricular septum Septal thickness, ED 10.1 mm Aortic valve Leaflet separation 18 mm 15-26 Left atrium Anterior-posterior dimension 34 mm Right ventricle RV internal dimension, ED, PLAX 20.2 mm 19-38 BASIC MEASUREMENTS ADULT Normal Aortic valve Leaflet separation 18 mm 15-26 Aorta Root diameter, ED 31 mm 20-37 DOPPLER MEASUREMENTS ADULT Normal Main pulmonary artery Pressure, S 12 mm Hg =30 Aortic valve Peak velocity, S 141 cm/s Mitral valve Peak E-wave velocity 67.1 cm/s Peak A-wave velocity 37 cm/s Peak E/A ratio 1.8 Maximal regurgitant velocity 520 cm/s Tricuspid valve Regurgitant peak velocity 132 cm/s Peak RV-RA gradient, S 7 mm Hg Maximal regurgitant velocity 132 cm/s Systemic veins Estimated CVP 5 mm Hg Right ventricle RV pressure, S 12 mm Hg <30 LEGEND: Mean values are shown as u=mean value. Asterisk (*) rivas values outside specified normal range. Prepared and signed by Tatiana Helton [id number]
--- NOTE | 2016-12-07 16:15 | PD.CAR.PN ---
CVT Progress Note Subjective/Hospital Course: 71/ male / [facility] admitted [facility] chest pain / HX CAD/ prior [place] / admit with NSTEMI / s/p heart cath multi vessel disease. 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/ anxiety depression , HTN, afib, DM 12/07 pt on Heparin and imdur, statin, ASA pain free, tentatively scheduled for surgery on Tuesday Objective: GENERAL: SKIN: Warm and dry. HEAD: Normocephalic. EYES: No scleral icterus. No injection or drainage. NECK: Supple, trachea midline. No JVD or lymphadenopathy. CARDIOVASCULAR: Regular rate and rhythm without murmurs, gallops, or rubs. RESPIRATORY: Breath sounds equal bilaterally. No accessory muscle use. GASTROINTESTINAL: Abdomen soft, non-tender, nondistended. MUSCULOSKELETAL: No cyanosis, or edema. BACK: Nontender without obvious deformity. No CVA tenderness. Vital Signs Date Time Temp Pulse Resp B/P Pulse Ox O2 Delivery O2 Flow Rate FiO2 12/07/16 15:00 84 12/07/16 15:00 97.9 75 17 114/64 97 12/07/16 14:00 81 12/07/16 13:00 89 12/07/16 12:00 66 12/07/16 11:00 97.9 90 18 130/66 96 12/07/16 11:00 85 12/07/16 10:00 95 12/07/16 09:00 98 12/07/16 08:00 92 12/07/16 07:30 97.6 86 19 112/71 95 12/07/16 07:23 89 12/07/16 06:00 93 12/07/16 05:00 85 12/07/16 04:00 72 12/07/16 03:00 83 12/07/16 03:00 98.5 83 16 102/80 98 12/07/16 02:00 99 12/07/16 01:00 94 12/07/16 00:00 92 12/06/16 23:00 98.4 86 18 138/82 96 12/06/16 23:00 86 12/06/16 22:15 94 12/06/16 21:00 82 12/06/16 20:00 84 12/06/16 19:00 87 12/06/16 19:00 98.6 87 18 135/81 97 12/06/16 18:01 93 12/06/16 17:53 98.0 75 18 133/76 96 12/06/16 17:07 80 Labs: Laboratory Tests Test 12/07/16 10:50 Activated Partial 42.0 SEC Thromboplast Time (24.3-30.1) Result Diagram: 12/07/1621912/07/16219 Telemetry: NSR (1) Multi-vessel coronary artery stenosis Plan: on ASA, statin , BB Heparin gtt tentatively scheduled for surgery on Tuesday (2) Atrial fibrillation with RVR (3) NSTEMI (non-ST elevated myocardial infarction) (4) Hyperlipidemia (5) Diabetes mellitus, type II Plan: HGB A1c 7.3 (6) History of seizure Plan: home meds resumed (7) Benign hypertension (8) Tobacco abuse Plan: tobacco cessation Shamika Stallworth Dec 07, 2016 16:15
[2016-12-07] MEDS: HEPARIN-D5W INJ 250 ML IV SCH (16:40)
[2016-12-07 17:20] LABS: HEMOGLOBIN A1a 0.8 %; HEMOGLOBIN A1b 1.9 %; HEMOGLOBIN LA1C 1.7 %; HEMOGLOBIN P3 3.7 %
[2016-12-08] VITALS (25 sets, daily range): BP systolic 114–138; BP diastolic 69–85; PULSE 70–100; RESP 16–18; TEMP 97.5–98.9; O2SAT 95–100
[2016-12-08] MEDS: INSULIN ASPART SUPPLEMENTAL SCALE SQ SCH ×4 (06:15→20:57)
[2016-12-08 06:24] LABS: APTT (PATIENT) 42.8 SEC (24.3-30.1)
[2016-12-08] MEDS: MORPHINE SULFATE 4 MG/ML INJ IV PRN (06:41)
[2016-12-08] MEDS: NITROGLYCERIN 0.4 MG SL 25 TABS/BTL SL PRN ×2 (06:41→06:54)
[2016-12-08] MEDS ORDERED: NITROGLYCERIN-DEXTROSE INJ 250 ML ONE (09:14)
[2016-12-08] MEDS: SODIUM CHLORIDE 0.9% FLUSH 10 ML FLUSH IV FLUSH SCH ×2 (09:20→20:57)
[2016-12-08] MEDS: ASPIRIN 81 MG CHEW TAB PO SCH (09:21)
[2016-12-08] MEDS: ISOSORBIDE MONONITRATE 30 MG TAB PO SCH (09:21)
[2016-12-08] MEDS: levETIRAcetam 250 MG TAB PO SCH ×2 (09:22→20:56)
[2016-12-08] MEDS: ALUMINUM/MAGNESIUM/SIMETH 30 ML CUP PO SCH ×5 (09:22→20:57)
[2016-12-08] MEDS: PRAVASTATIN SOD 40 MG TAB PO SCH (09:22)
[2016-12-08] MEDS ORDERED: NITROGLYCERIN/DEXTROSE 5% 250 ML for chest pain IV SCH (10:30)
--- NOTE | 2016-12-08 13:12 | HHI.PR ---
Subjective Remarks Follow-up non-ST elevation [place]/atrial fibrillation with rapid ventricular response /now multivessel disease 12/07/16-patient seen and examined, currently denies any chest pain or shortness of breath since admission. Status post left heart catheterization . Case discussed with cardiology this morning. 12/08/16-patient seen and examined, complains of intermittent chest discomfort. Back on nitro drip Objective Vitals Vital Signs Date Time Temp Pulse Resp B/P Pulse Ox O2 Delivery O2 Flow Rate FiO2 12/08/16 10:00 70 12/08/16 09:00 76 12/08/16 08:00 84 12/08/16 07:30 98.7 100 16 121/80 100 12/08/16 07:00 93 12/08/16 06:00 90 12/08/16 05:00 88 12/08/16 04:00 84 12/08/16 04:00 98.0 86 18 132/70 96 12/08/16 03:00 88 12/08/16 02:00 88 12/08/16 01:00 88 12/08/16 00:00 97.9 91 18 116/85 96 12/08/16 00:00 86 12/07/16 23:00 86 12/07/16 22:00 98 12/07/16 21:00 86 12/07/16 20:00 98.3 90 18 115/74 96 12/07/16 20:00 83 12/07/16 19:00 94 12/07/16 18:00 87 12/07/16 17:00 88 12/07/16 16:00 89 12/07/16 15:00 84 12/07/16 15:00 97.9 75 17 114/64 97 12/07/16 14:00 81 I/O 12/07/16 12/07/16 12/07/16 12/08/16 12/08/16 12/08/16 07:00 15:00 23:00 07:00 15:00 23:00 Intake Total 872 ml 960 ml 360 ml Output Total 550 ml 450 ml 350 ml Balance 322 ml 510 ml 10 ml Intake Oral 720 ml 720 ml 360 ml IV Total 152 ml 240 ml Output Urine Total 550 ml 450 ml 350 ml # Bowel Movements 1 1 0 Result Diagram: 12/07/1621912/07/16219 Objective Remarks GENERAL: NAD SKIN: Warm and dry. HEAD: Normocephalic. EYES: No scleral icterus. No injection or drainage. NECK: Supple, trachea midline. No JVD or lymphadenopathy. CARDIOVASCULAR: Regular rate and rhythm without murmurs, gallops, or rubs. RESPIRATORY: Breath sounds equal bilaterally. No accessory muscle use. GASTROINTESTINAL: Abdomen soft, non-tender, nondistended. MUSCULOSKELETAL: No cyanosis, or edema. BACK: Nontender without obvious deformity. No CVA tenderness. A/P Problem List: (1) Multi-vessel coronary artery stenosis ICD Code: I25.10 Status: Acute (2) NSTEMI (non-ST elevated myocardial infarction) ICD Code: I21.4 Status: Acute (3) Atrial fibrillation with RVR ICD Code: I48.91 Status: Acute (4) Diabetes mellitus, type II ICD Code: E11.9 Status: Acute (5) Benign hypertension ICD Code: I10 Status: Acute (6) Hyperlipidemia ICD Code: E78.5 Status: Acute (7) Hypokalemia ICD Code: E87.6 Status: Resolved (8) History of seizure ICD Code: Z87.898 Status: Acute Assessment and Plan 71-year-old man with Multivessel coronary artery stenosis: Status post left heart catheterization with finding of Multivessel coronary artery disease with significant proximal LAD, ostial first diagonal, mid-second obtuse marginal; for which cardiothoracic surgery has been consulted for evaluation of CABG and plan for surgery possible this 12/10/16. Continue with heparin drip/Imdur/Statin /ASA/Nitro drip Non-ST elevation IA: Status post left heart catheterization 12/06/16 with finding of multivessel coronary artery disease stenosis. Appreciate input from cardiology Check 2-D echo. Continue heparin drip/Nitro drip/Imdur/statin/ASA Atrial fibrillation rapid ventricular response: currently on Cardizem drip and appreciate input from cardiology Diabetes type 2: Continue to Hold oral hypoglycemic agent, continue insulin sliding scale with fingerstick blood glucose monitoring Hyperlipidemia, hypertension, seizure disorder, diabetic neuropathy: Continue outpatient medications Hypokalemia: Replace electrolyte DVT prophylaxis: Riley Burton MD Dec 08, 2016 13:12
[2016-12-08] MEDS: HEPARIN-D5W INJ 250 ML IV SCH (13:23)
--- NOTE | 2016-12-08 13:49 | PD.CAR.PN ---
CVT Progress Note Subjective/Hospital Course: 71/ male [facility] pain / HX CAD/ prior [place] / admit with NSTEMI / s/p heart cath multi vessel disease. 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/ anxiety depression , HTN, afib, DM 12/07 pt on Heparin and imdur, statin, ASA pain free, tentatively scheduled for surgery on Friday 12/08 pt developed midsternal chest pain this am 03/31 now 08/31, received morphine and started on NTG gtt remains on NTG gtt scheduled for surgery on Tuesday / remains in Afib rate controlled, some occasional 2-3 sec pauses sts discussed with pt RISK SCORES About the STS Risk Calculator Procedure: CAB Only Risk of Mortality: 2.023% Morbidity or Mortality: 17.974% Long Length of Stay: 7.411% Short Length of Stay: 35.452% Permanent Stroke: 1.94% Prolonged Ventilation: 12.192% DSW Infection: 0.343% Renal Failure: 1.835% Reoperation: 7.701% Objective: GENERAL: SKIN: Warm and dry. HEAD: Normocephalic. EYES: No scleral icterus. No injection or drainage. NECK: Supple, trachea midline. No JVD or lymphadenopathy. CARDIOVASCULAR: Regular rate and rhythm without murmurs, gallops, or rubs. RESPIRATORY: Breath sounds equal bilaterally. faint exp wheeze No accessory muscle use. GASTROINTESTINAL: Abdomen soft, non-tender, nondistended. MUSCULOSKELETAL: No cyanosis, or edema. BACK: Nontender without obvious deformity. No CVA tenderness. Vital Signs Date Time Temp Pulse Resp B/P Pulse Ox O2 Delivery O2 Flow Rate FiO2 12/08/16 13:00 89 12/08/16 12:00 72 12/08/16 11:00 77 12/08/16 10:00 70 12/08/16 09:00 76 12/08/16 08:00 84 12/08/16 07:30 98.7 100 16 121/80 100 12/08/16 07:00 93 12/08/16 06:00 90 12/08/16 05:00 88 12/08/16 04:00 84 12/08/16 04:00 98.0 86 18 132/70 96 12/08/16 03:00 88 12/08/16 02:00 88 12/08/16 01:00 88 12/08/16 00:00 97.9 91 18 116/85 96 12/08/16 00:00 86 12/07/16 23:00 86 12/07/16 22:00 98 12/07/16 21:00 86 12/07/16 20:00 98.3 90 18 115/74 96 12/07/16 20:00 83 12/07/16 19:00 94 12/07/16 18:00 87 12/07/16 17:00 88 12/07/16 16:00 89 12/07/16 15:00 84 12/07/16 15:00 97.9 75 17 114/64 97 12/07/16 14:00 81 Labs: Laboratory Tests Test 12/08/16 12/08/16 05:50 06:46 Activated Partial 42.8 SEC Thromboplast Time (24.3-30.1) Blood Type A NEGATIVE A NEGATIVE Antibody Screen NEGATIVE Crossmatch Leukocyte-Reduced Red Blood Cells Blood Bank Comment Result Diagram: 12/07/1621912/07/16219 (1) Multi-vessel coronary artery stenosis Plan: on ASA, statin , BB Heparin gtt , now NTG gtt scheduled for surgery on Tuesday (2) Atrial fibrillation with RVR Plan: no afib some 2-3 sec pauses (3) NSTEMI (non-ST elevated myocardial infarction) (4) Hyperlipidemia (5) Diabetes mellitus, type II Plan: HGB A1c 7.3 (6) History of seizure Plan: home meds resumed (7) Benign hypertension (8) Tobacco abuse Plan: tobacco cessation Shamika Stallworth Dec 08, 2016 13:49
--- NOTE | 2016-12-08 16:35 | PD.CARD.PN ---
Subjective Subjective Remarks No chest pain, no shortness of breath Some chest pain over night, but started on nitro at 5mcg/min and currently comfortable Objective Medications Current Medications Medications (Trade) Dose Ordered Sig/Romie Route Start Time Stop Time Status Last Admin (Cardizem Inj/NS Inj) 125 ml @ 0 mls/hr TITRATE IV 12/06/16 10:15 12/06/16 11:00 (Heparin Inj) 5,000 units UNSCH PRN IV 12/06/16 17:00 Heparin Sodium (Porcine) 2500 units 2,500 units UNSCH PRN IV 12/06/16 17:00 (Heparin-D5W Inj) 250 ml @ 0 mls/hr TITRATE IV 12/06/16 11:00 12/08/16 13:23 (NS Flush) 2 ml BID IV FLUSH 12/06/16 21:00 12/07/16 20:50 (NS Flush) 2 ml UNSCH PRN IV FLUSH 12/06/16 11:45 (Aspirin Chew) 162 mg DAILY PO 12/07/16 09:00 12/08/16 09:21 (Nitrostat Sl) 0.4 mg Q5M PRN SL 12/06/16 11:45 12/08/16 06:54 (Tylenol) 500 mg Q4H PRN PO 12/06/16 11:45 ([place] 7.5-325 Mg) 1 tab Q4H PRN PO 12/06/16 11:45 (Morphine Inj) 2 mg Q5M PRN IV 12/06/16 11:45 12/08/16 06:41 (Mag-Al Plus Susp Liq) 30 ml QID PO 12/06/16 13:00 12/07/16 14:23 (Restoril) 15 mg HS PRN PO 12/06/16 21:00 (D50w (Vial) Inj) 25 ml UNSCH PRN IV PUSH 12/06/16 12:30 (Glucagon Inj) 1 mg UNSCH PRN OTHER 12/06/16 12:30 (Imdur) 30 mg DAILY PO 12/07/16 09:00 12/08/16 09:21 (Keppra) 750 mg BID PO 12/06/16 21:00 12/08/16 09:22 Pravastatin Sodium 40 mg 40 mg DAILY PO 12/07/16 09:00 12/08/16 09:22 (Nitroglycerin-Dextrose Inj) 250 ml @ 0 mls/hr TITRATE IV 12/08/16 10:30 Vital Signs / I&O Vital Signs Date Time Temp Pulse Resp B/P Pulse Ox O2 Delivery O2 Flow Rate FiO2 12/08/16 15:00 94 12/08/16 15:00 97.5 84 16 118/76 95 12/08/16 14:00 71 12/08/16 13:00 89 12/08/16 12:00 72 12/08/16 11:00 77 12/08/16 11:00 98.9 87 16 114/69 97 12/08/16 10:00 70 12/08/16 09:00 76 12/08/16 08:00 84 12/08/16 07:30 98.7 100 16 121/80 100 12/08/16 07:00 93 12/08/16 06:00 90 12/08/16 05:00 88 12/08/16 04:00 84 12/08/16 04:00 98.0 86 18 132/70 96 12/08/16 03:00 88 12/08/16 02:00 88 12/08/16 01:00 88 12/08/16 00:00 97.9 91 18 116/85 96 12/08/16 00:00 86 12/07/16 23:00 86 12/07/16 22:00 98 12/07/16 21:00 86 12/07/16 20:00 98.3 90 18 115/74 96 12/07/16 20:00 83 12/07/16 19:00 94 12/07/16 18:00 87 12/07/16 17:00 88 I/O 12/07/16 12/07/16 12/07/16 12/08/16 12/08/16 12/08/16 07:00 15:00 23:00 07:00 15:00 23:00 Intake Total 872 ml 960 ml 360 ml Output Total 550 ml 450 ml 350 ml Balance 322 ml 510 ml 10 ml Intake Oral 720 ml 720 ml 360 ml IV Total 152 ml 240 ml Output Urine Total 550 ml 450 ml 350 ml # Bowel Movements 1 1 0 Physical Exam GENERAL: NAD, AAOx3 SKIN: Warm and dry. HEAD: Atraumatic. Normocephalic. EYES: Pupils equal and round. No scleral icterus. No injection or drainage. ENT: No nasal bleeding or discharge. Mucous membranes pink and moist. NECK: Trachea midline. No JVD. CARDIOVASCULAR: Irregularly irregular RESPIRATORY: No accessory muscle use. Decreased breath sounds bilaterally GASTROINTESTINAL: Abdomen soft, non-tender, nondistended. Hepatic and splenic margins not palpable. MUSCULOSKELETAL: Extremities without clubbing, cyanosis, or edema. No obvious deformities. Right radial no hematoma, neurovascularly intact distally NEUROLOGICAL: Awake and alert. No obvious cranial nerve deficits. Motor grossly within normal limits. Five out of 5 muscle strength in the arms and legs. Normal speech. PSYCHIATRIC: Appropriate mood and affect; insight and judgment normal. Laboratory Laboratory Tests Test 12/08/16 12/08/16 05:50 06:46 Activated Partial 42.8 SEC Thromboplast Time Blood Type A NEGATIVE A NEGATIVE Antibody Screen NEGATIVE Crossmatch Leukocyte-Reduced Red Blood Cells Blood Bank Comment Assessment and Plan Problem List: (1) Multi-vessel coronary artery stenosis (2) Atrial fibrillation with RVR (3) NSTEMI (non-ST elevated myocardial infarction) (4) Hyperlipidemia (5) Diabetes mellitus, type II (6) History of seizure (7) Benign hypertension (8) Tobacco abuse Assessment and Plan 1) MVCAD/NSTEMI, placed on heparin drip and nitro at 5mcg/min 2) Wean nitro gtt as possible 3) EF 35-40%, mild to mod MR 4) Await CT surgery work up 5) Not a great chcf anticoagulation candidate due to multiple falls, consider Maze procedure 6) Patient not sure if he was staying for surgery, but I spoke with him letting him know that he's on 2 IV medication stopping him from having chest pain 7) Mild pauses of 2-3 seconds on telemetry, not concerning with Afib will continue to follow on telemetry, continue on current medications Saw Chairez DO Dec 08, 2016 16:35
[2016-12-08] MEDS: MORPHINE SULFATE 30 MG CONTROLLED RELEASE TAB PO SCH (18:40)
[2016-12-09] VITALS (24 sets, daily range): BP systolic 106–141; BP diastolic 69–91; PULSE 70–112; RESP 16–20; TEMP 98.1–99.3; O2SAT 93–96
[2016-12-09] MEDS: INSULIN ASPART SUPPLEMENTAL SCALE SQ SCH ×4 (05:51→20:34)
[2016-12-09] MEDS: HEPARIN-D5W INJ 250 ML IV SCH (06:08)
[2016-12-09 07:07] LABS: HEMATOCRIT 40.8 % (39.0-51.0); MEAN CELL VOLUME 84.2 FL (80.0-100.0); MEAN CORPUSCULAR HEMOGLOBIN 28.6 PG (27.0-34.0); PLATELET COUNT 187 TH/MM3 (150-450); RED BLOOD COUNT 4.85 MIL/MM3 (4.50-5.90); RED CELL DISTRIBUTION WIDTH 13.5 % (11.6-17.2); REVIEW FLAG FINAL; WHITE BLOOD COUNT 6.3 TH/MM3 (4.0-11.0)
[2016-12-09] MEDS: ISOSORBIDE MONONITRATE 30 MG TAB PO SCH (08:49)
[2016-12-09] MEDS: ASPIRIN 81 MG CHEW TAB PO SCH (08:49)
[2016-12-09] MEDS: MORPHINE SULFATE 30 MG CONTROLLED RELEASE TAB PO SCH ×2 (08:49→20:37)
[2016-12-09] MEDS: SODIUM CHLORIDE 0.9% FLUSH 10 ML FLUSH IV FLUSH SCH ×2 (08:50→20:37)
[2016-12-09] MEDS: levETIRAcetam 250 MG TAB PO SCH ×2 (08:50→20:34)
[2016-12-09] MEDS: PRAVASTATIN SOD 40 MG TAB PO SCH (08:50)
[2016-12-09] MEDS: ALUMINUM/MAGNESIUM/SIMETH 30 ML CUP PO SCH ×4 (08:52→20:34)
--- NOTE | 2016-12-09 10:15 | RSPPFT ---
DATE OF PROCEDURE: 12/07/16 COMMENTS: The forced vital capacity shows a small reduction. The FEV1 and FEF 25-75 are both moderately reduced. The FEV1/FVC ratio is markedly reduced. 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
[2016-12-09 11:18] LABS: APTT (PATIENT) 41.3 SEC (24.3-30.1)
--- NOTE | 2016-12-09 12:30 | HHI.PR ---
Subjective Remarks Follow-up non-ST elevation MT/atrial fibrillation with rapid ventricular response /now multivessel disease 12/07/16-patient seen and examined, currently denies any chest pain or shortness of breath since admission. Status post left heart catheterization . Case discussed with cardiology this morning. 12/08/16-patient seen and examined, complains of intermittent chest discomfort. Back on nitro drip 12/09/16-patient seen and examined, reports some improvement of intermittent chest discomfort. He complains of right hip pain. Patient is severely depressed Objective Vitals Vital Signs Date Time Temp Pulse Resp B/P Pulse Ox O2 Delivery O2 Flow Rate FiO2 12/09/16 12:00 79 12/09/16 11:00 98.5 86 16 106/69 95 12/09/16 11:00 90 12/09/16 10:00 112 12/09/16 09:00 96 12/09/16 08:00 98.8 98 16 136/82 95 12/09/16 08:00 86 12/09/16 07:00 82 12/09/16 06:00 89 12/09/16 05:00 84 12/09/16 04:00 80 12/09/16 03:00 98.3 85 18 141/91 96 12/09/16 03:00 85 12/09/16 02:00 70 12/09/16 01:00 75 12/09/16 00:00 88 12/08/16 23:00 98.4 77 16 138/81 95 12/08/16 23:00 77 12/08/16 22:00 93 12/08/16 21:00 87 12/08/16 20:00 79 12/08/16 19:00 83 12/08/16 19:00 98.2 83 18 130/80 96 12/08/16 18:00 80 12/08/16 17:00 88 12/08/16 16:00 90 12/08/16 15:00 94 12/08/16 15:00 97.5 84 16 118/76 95 12/08/16 14:00 71 12/08/16 13:00 89 I/O 12/08/16 12/08/16 12/08/16 12/09/16 12/09/16 12/09/16 07:00 15:00 23:00 07:00 15:00 23:00 Intake Total 360 ml 480 ml 495 ml Output Total 350 ml 225 ml 650 ml Balance 10 ml 255 ml -155 ml Intake Oral 360 ml 480 ml 360 ml IV Total 135 ml Output Urine Total 350 ml 225 ml 650 ml # Voids 1 # Bowel Movements 0 0 0 Result Diagram: 12/09/16 0609 12/07/16 0220 Imaging Last Impressions Lower Extremity Ultrasound 12/07/16 0000 Signed Impressions: Service Date/Time: Wednesday, December 07, 2016 10:46 - CONCLUSION: No evidence of deep venous thrombosis within the lower extremities. Eduardo Morocho MD Carotid Artery Ultrasound 12/07/16 0000 Signed Impressions: Service Date/Time: Wednesday, December 07, 2016 11:15 - CONCLUSION: Mild heterogeneous plaque seen bilaterally in the carotid bifurcations. No evidence of hemodynamically significant stenosis. Billy Oliva MD Chest X-Ray 12/06/16 0955 Signed Impressions: Service Date/Time: Tuesday, December 06, 2016 10:00 - CONCLUSION: No acute disease. Eduardo Morocho MD Objective Remarks GENERAL: NAD SKIN: Warm and dry. HEAD: Normocephalic. EYES: No scleral icterus. No injection or drainage. NECK: Supple, trachea midline. No JVD or lymphadenopathy. CARDIOVASCULAR: Regular rate and rhythm without murmurs, gallops, or rubs. RESPIRATORY: Breath sounds equal bilaterally. No accessory muscle use. GASTROINTESTINAL: Abdomen soft, non-tender, nondistended. MUSCULOSKELETAL: No cyanosis, or edema. BACK: Nontender without obvious deformity. No CVA tenderness. A/P Problem List: (1) Multi-vessel coronary artery stenosis ICD Code: I25.10 Status: Acute (2) NSTEMI (non-ST elevated myocardial infarction) ICD Code: I21.4 Status: Acute (3) Atrial fibrillation with RVR ICD Code: I48.91 Status: Acute (4) Diabetes mellitus, type II ICD Code: E11.9 Status: Acute (5) Benign hypertension ICD Code: I10 Status: Acute (6) Hyperlipidemia ICD Code: E78.5 Status: Acute (7) Hypokalemia ICD Code: E87.6 Status: Resolved (8) History of seizure ICD Code: Z87.898 Status: Acute (9) Anxiety and depression ICD Code: F41.9 Status: Acute Assessment and Plan 71-year-old man with Multivessel coronary artery stenosis: Status post left heart catheterization with finding of Multivessel coronary artery disease with significant proximal LAD, ostial first diagonal, mid-second obtuse marginal; for which cardiothoracic surgery has been consulted for evaluation of CABG and plan for surgery tomorrow 12/10/16. Continue with heparin drip/Imdur/Statin/ASA/ Nitro drip Non-ST elevation MT: Status post left heart catheterization 12/06/16 with finding of multivessel coronary artery disease stenosis. Appreciate input from cardiology 2-D echo with EF 35-%. Continue heparin drip/Nitro drip/Imdur/statin /ASA Atrial fibrillation rapid ventricular response: currently on Cardizem drip and appreciate input from cardiology Diabetes type 2: Continue to Hold oral hypoglycemic agent, continue insulin sliding scale with fingerstick blood glucose monitoring Hyperlipidemia, hypertension, seizure disorder, diabetic neuropathy: Continue outpatient medications Hypokalemia: Replace electrolyte Depressed mood: Will start Lexapro today 12/09/16 and consider psychiatry consultation if no improvement DVT prophylaxis: Riley Burton MD Dec 09, 2016 12:30
[2016-12-09] MEDS: ESCITALOPRAM OXALATE 10 MG TAB PO SCH (13:36)
--- NOTE | 2016-12-09 14:15 | PD.CARD.PN ---
Subjective Subjective Remarks No chest pain, no shortness of breath Doing better after receiving pain medications Objective Medications Current Medications Medications (Trade) Dose Ordered Sig/Romie Route Start Time Stop Time Status Last Admin (Cardizem Inj/NS Inj) 125 ml @ 0 mls/hr TITRATE IV 12/06/16 10:15 12/06/16 11:00 (Heparin Inj) 5,000 units UNSCH PRN IV 12/06/16 17:00 Heparin Sodium (Porcine) 2500 units 2,500 units UNSCH PRN IV 12/06/16 17:00 (Heparin-D5W Inj) 250 ml @ 0 mls/hr TITRATE IV 12/06/16 11:00 12/09/16 06:08 (NS Flush) 2 ml BID IV FLUSH 12/06/16 21:00 12/08/16 20:57 (NS Flush) 2 ml UNSCH PRN IV FLUSH 12/06/16 11:45 (Aspirin Chew) 162 mg DAILY PO 12/07/16 09:00 12/09/16 08:49 (Nitrostat Sl) 0.4 mg Q5M PRN SL 12/06/16 11:45 12/08/16 06:54 (Tylenol) 500 mg Q4H PRN PO 12/06/16 11:45 ([place] 7.5-325 Mg) 1 tab Q4H PRN PO 12/06/16 11:45 (Morphine Inj) 2 mg Q5M PRN IV 12/06/16 11:45 12/08/16 06:41 (Mag-Al Plus Susp Liq) 30 ml QID PO 12/06/16 13:00 12/07/16 14:23 (Restoril) 15 mg HS PRN PO 12/06/16 21:00 (D50w (Vial) Inj) 25 ml UNSCH PRN IV PUSH 12/06/16 12:30 (Glucagon Inj) 1 mg UNSCH PRN OTHER 12/06/16 12:30 (Imdur) 30 mg DAILY PO 12/07/16 09:00 12/09/16 08:49 (Keppra) 750 mg BID PO 12/06/16 21:00 12/09/16 08:50 Pravastatin Sodium 40 mg 40 mg DAILY PO 12/07/16 09:00 12/09/16 08:50 (Nitroglycerin-Dextrose Inj) 250 ml @ 0 mls/hr TITRATE IV 12/08/16 10:30 (Oramorph Sr) 30 mg Q12H PO 12/08/16 19:00 12/09/16 08:49 (Lexapro) 10 mg DAILY PO 12/09/16 13:00 12/09/16 13:36 Vital Signs / I&O Vital Signs Date Time Temp Pulse Resp B/P Pulse Ox O2 Delivery O2 Flow Rate FiO2 12/09/16 14:03 87 12/09/16 13:00 80 12/09/16 12:00 79 12/09/16 11:00 98.5 86 16 106/69 95 12/09/16 11:00 90 12/09/16 10:00 112 12/09/16 09:00 96 12/09/16 08:00 98.8 98 16 136/82 95 12/09/16 08:00 86 12/09/16 07:00 82 12/09/16 06:00 89 12/09/16 05:00 84 12/09/16 04:00 80 12/09/16 03:00 98.3 85 18 141/91 96 12/09/16 03:00 85 12/09/16 02:00 70 12/09/16 01:00 75 12/09/16 00:00 88 12/08/16 23:00 98.4 77 16 138/81 95 12/08/16 23:00 77 12/08/16 22:00 93 12/08/16 21:00 87 12/08/16 20:00 79 12/08/16 19:00 83 12/08/16 19:00 98.2 83 18 130/80 96 12/08/16 18:00 80 12/08/16 17:00 88 12/08/16 16:00 90 12/08/16 15:00 94 12/08/16 15:00 97.5 84 16 118/76 95 I/O 12/08/16 12/08/16 12/08/16 12/09/16 12/09/16 12/09/16 07:00 15:00 23:00 07:00 15:00 23:00 Intake Total 360 ml 480 ml 495 ml Output Total 350 ml 225 ml 650 ml Balance 10 ml 255 ml -155 ml Intake Oral 360 ml 480 ml 360 ml IV Total 135 ml Output Urine Total 350 ml 225 ml 650 ml # Voids 1 # Bowel Movements 0 0 0 Physical Exam GENERAL: NAD, AAOx3 SKIN: Warm and dry. HEAD: Atraumatic. Normocephalic. EYES: Pupils equal and round. No scleral icterus. No injection or drainage. ENT: No nasal bleeding or discharge. Mucous membranes pink and moist. NECK: Trachea midline. No JVD. CARDIOVASCULAR: Irregularly irregular RESPIRATORY: No accessory muscle use. Decreased breath sounds bilaterally GASTROINTESTINAL: Abdomen soft, non-tender, nondistended. Hepatic and splenic margins not palpable. MUSCULOSKELETAL: Extremities without clubbing, cyanosis, or edema. No obvious deformities. Right radial no hematoma, neurovascularly intact distally NEUROLOGICAL: Awake and alert. No obvious cranial nerve deficits. Motor grossly within normal limits. Five out of 5 muscle strength in the arms and legs. Normal speech. PSYCHIATRIC: Appropriate mood and affect; insight and judgment normal. Laboratory Laboratory Tests Test 12/09/16 12/09/16 06:09 10:47 White Blood Count 6.3 TH/MM3 Red Blood Count 4.85 MIL/MM3 Hemoglobin 13.9 GM/DL Hematocrit 40.8 % Mean Corpuscular Volume 84.2 FL Mean Corpuscular Hemoglobin 28.6 PG Mean Corpuscular Hemoglobin 34.0 % Concent Red Cell Distribution Width 13.5 % Platelet Count 187 TH/MM3 Mean Platelet Volume 10.3 FL Activated Partial 41.3 SEC Thromboplast Time Assessment and Plan Problem List: (1) Multi-vessel coronary artery stenosis (2) Atrial fibrillation with RVR (3) NSTEMI (non-ST elevated myocardial infarction) (4) Hyperlipidemia (5) Diabetes mellitus, type II (6) History of seizure (7) Benign hypertension (8) Tobacco abuse Assessment and Plan 1) MVCAD/NSTEMI, placed on heparin drip and nitro at 5mcg/min 2) Wean nitro gtt as possible 3) EF 35-40%, mild to mod MR 4) Await CT surgery work up 5) Not a great senior care anticoagulation candidate due to multiple falls, consider Maze procedure 6) Restarted on Morphine PO 7) Mild pauses of 2-3 seconds on telemetry, not concerning with Afib will continue to follow on telemetry, continue on current medications Saw Chairez DO Dec 09, 2016 14:15
--- NOTE | 2016-12-09 14:49 | PD.CAR.PN ---
CVT Progress Note Subjective/Hospital Course: 71/ male / [facility] pain / HX CAD/ prior [facility] / admit with NSTEMI / s/p heart cath multi vessel disease. 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/ anxiety depression , HTN, afib, DM 12/07 pt on Heparin and imdur, statin, ASA pain free, tentatively scheduled for surgery on Friday 12/08 pt developed midsternal chest pain this am 03/31 now 08/31, received morphine and started on NTG gtt remains on NTG gtt scheduled for surgery on Tuesday / remains in Afib rate controlled, some occasional 2-3 sec pauses 12/09 no further chest pain, c/o feeling depressed agreeable for surgery in am on Heparin gtt OR in am Objective: GENERAL: SKIN: Warm and dry. HEAD: Normocephalic. EYES: No scleral icterus. No injection or drainage. NECK: Supple, trachea midline. No JVD or lymphadenopathy. CARDIOVASCULAR: Regular rate and rhythm without murmurs, gallops, or rubs. RESPIRATORY: Breath sounds equal bilaterally. No accessory muscle use. GASTROINTESTINAL: Abdomen soft, non-tender, nondistended. MUSCULOSKELETAL: No cyanosis, or edema. BACK: Nontender without obvious deformity. No CVA tenderness. Vital Signs Date Time Temp Pulse Resp B/P Pulse Ox O2 Delivery O2 Flow Rate FiO2 12/09/16 14:03 87 12/09/16 13:00 80 12/09/16 12:00 79 12/09/16 11:00 98.5 86 16 106/69 95 12/09/16 11:00 90 12/09/16 10:00 112 12/09/16 09:00 96 12/09/16 08:00 98.8 98 16 136/82 95 12/09/16 08:00 86 12/09/16 07:00 82 12/09/16 06:00 89 12/09/16 05:00 84 12/09/16 04:00 80 12/09/16 03:00 98.3 85 18 141/91 96 12/09/16 03:00 85 12/09/16 02:00 70 12/09/16 01:00 75 12/09/16 00:00 88 12/08/16 23:00 98.4 77 16 138/81 95 12/08/16 23:00 77 12/08/16 22:00 93 12/08/16 21:00 87 12/08/16 20:00 79 12/08/16 19:00 83 12/08/16 19:00 98.2 83 18 130/80 96 12/08/16 18:00 80 12/08/16 17:00 88 12/08/16 16:00 90 12/08/16 15:00 94 12/08/16 15:00 97.5 84 16 118/76 95 Labs: Laboratory Tests Test 12/09/16 12/09/16 06:09 10:47 White Blood Count 6.3 TH/MM3 (4.0-11.0) Red Blood Count 4.85 MIL/MM3 (4.50-5.90) Hemoglobin 13.9 GM/DL (13.0-17.0) Hematocrit 40.8 % (39.0-51.0) Mean Corpuscular Volume 84.2 FL (80.0-100.0) Mean Corpuscular Hemoglobin 28.6 PG (27.0-34.0) Mean Corpuscular Hemoglobin 34.0 % Concent (32.0-36.0) Red Cell Distribution Width 13.5 % (11.6-17.2) Platelet Count 187 TH/MM3 (150-450) Mean Platelet Volume 10.3 FL (7.0-11.0) Activated Partial 41.3 SEC Thromboplast Time (24.3-30.1) Result Diagram: 12/09/16 0609 12/07/16 0220 Telemetry: NSR (1) Multi-vessel coronary artery stenosis Plan: on ASA, statin , BB Heparin gtt , NTG gtt scheduled for surgery on Tuesday (2) Atrial fibrillation with RVR Plan: no afib some 2-3 sec pauses (3) NSTEMI (non-ST elevated myocardial infarction) (4) Hyperlipidemia Plan: on statin (5) Diabetes mellitus, type II Plan: HGB A1c 7.3 (6) History of seizure Plan: home meds resumed (7) Benign hypertension (8) Tobacco abuse Plan: tobacco cessation (9) anxiety / depression Plan: hx of mood disorder/ psych consult Shamika Stallworth Dec 09, 2016 14:49
[2016-12-10] VITALS (20 sets, daily range): BP systolic 92–135; BP diastolic 56–97; PULSE 73–115; RESP 9–20; TEMP 97.5–99; O2SAT 85–98
[2016-12-10] MEDS: HEPARIN-D5W INJ 250 ML IV SCH (03:48)
[2016-12-10] MEDS ORDERED: CALCIUM CHLORIDE 10% SOLN 1 GRAM/10 ML SYR IV ONE (05:00)
[2016-12-10] MEDS ORDERED: PROTAMINE SULFATE 250 MG/25 ML VIAL IV ONE (05:00)
[2016-12-10] MEDS ORDERED: MAGNESIUM SULFATE 1000 MG/2 ML VIAL (PED) IV ONE (05:00)
[2016-12-10] MEDS ORDERED: ARTIFICIAL TEARS OPTH OINT 3.5 APPLIC/3.5 GM TUBO ONE (05:00)
[2016-12-10] MEDS ORDERED: FUROSEMIDE 100 MG/10 ML VIAL IV PUSH ONE (05:00)
[2016-12-10] MEDS ORDERED: AMINOCAPROIC ACID INJ 250 MG/ML 20 ML VIAL IV ONE ×2 (05:00→14:00)
[2016-12-10] MEDS ORDERED: SODIUM CHLORIDE 0.9% IV ONE (05:00)
[2016-12-10] MEDS ORDERED: ESMOLOL HCL 100 MG/10 ML VIAL IV ONE (05:00)
[2016-12-10] MEDS ORDERED: VECURONIUM BROMIDE 10 MG VIAL IV ONE (05:00)
[2016-12-10] MEDS ORDERED: DEXMEDETOMIDINE IV ONE (05:00)
[2016-12-10] MEDS ORDERED: AMIODARONE HCL 150 MG/3 ML VIAL IV ONE (05:00)
[2016-12-10] MEDS ORDERED: NEOSTIGMINE METHYLSULFATE 10 MG/10 ML VIAL IV PUSH ONE (05:00)
[2016-12-10] MEDS ORDERED: HEPARIN SODIUM - SQ 10,000 UNITS/ML VIAL SQ ONE (05:00)
[2016-12-10] MEDS ORDERED: ceFAZolin INJ 1,000 MG VIAL IV ONE (05:00)
[2016-12-10] MEDS ORDERED: ceFAZolin 2 GM PREMIX 50 ML ONE (06:26)
[2016-12-10] MEDS ORDERED: HEPARIN SODIUM - IV 10,000 UNITS/10 ML VIAL ONE ×2 (06:28→06:34)
[2016-12-10] MEDS ORDERED: methylPREDNISolone SOD SUCC 125 MG/2 ML VIAL ONE (06:28)
[2016-12-10] MEDS ORDERED: VANCOMYCIN HCL 1000 MG VIAL ONE (06:29)
[2016-12-10] MEDS ORDERED: CARDIOPLEGIC IRR 1,000 ML ONE (06:31)
[2016-12-10] MEDS ORDERED: MANNITOL INJ 50 ML ONE (06:32)
[2016-12-10] MEDS ORDERED: POTASSIUM CHLORIDE 40 MEQ/20 ML VIAL ONE (06:32)
[2016-12-10] MEDS ORDERED: ALBUMIN HUMAN 25% 12.5 GM/50 ML BAGP IV ONE (06:33)
[2016-12-10] MEDS ORDERED: SODIUM BICARBONATE 8.4% INJ 50 MEQ/50 ML SYR ONE (06:33)
[2016-12-10] MEDS ORDERED: HEPARIN SODIUM - SQ 10,000 UNITS/ML VIAL ONE (06:34)
[2016-12-10 06:47] LABS: APTT (PATIENT) 35.7 SEC (24.3-30.1)
[2016-12-10] MEDS: MORPHINE SULFATE 30 MG CONTROLLED RELEASE TAB PO SCH ×2 (07:00→22:58)
[2016-12-10] MEDS: levETIRAcetam 250 MG TAB PO SCH ×2 (09:00→22:58)
[2016-12-10] MEDS: ALUMINUM/MAGNESIUM/SIMETH 30 ML CUP PO SCH ×4 (09:00→21:52)
[2016-12-10] MEDS: ASPIRIN 81 MG CHEW TAB PO SCH (09:00)
[2016-12-10] MEDS: PRAVASTATIN SOD 40 MG TAB PO SCH (09:00)
[2016-12-10] MEDS: ESCITALOPRAM OXALATE 10 MG TAB PO SCH (09:00)
--- NOTE | 2016-12-10 10:00 | HHI.PR ---
Subjective Remarks Follow-up non-ST elevation MD/atrial fibrillation with rapid ventricular response /now multivessel disease 12/07/16-patient seen and examined, currently denies any chest pain or shortness of breath since admission. Status post left heart catheterization . Case discussed with cardiology this morning. 12/08/16-patient seen and examined, complains of intermittent chest discomfort. Back on nitro drip 12/09/16-patient seen and examined, reports some improvement of intermittent chest discomfort. He complains of right hip pain. Patient is severely depressed\ 12/10/16-patient seen and examined, nothing by mouth and heading to the OR for CABG Objective Vitals Vital Signs Date Time Temp Pulse Resp B/P Pulse Ox O2 Delivery O2 Flow Rate FiO2 12/10/16 06:00 82 12/10/16 05:00 73 12/10/16 05:00 98.4 96 20 125/72 93 12/10/16 04:00 95 12/10/16 03:00 88 12/10/16 02:00 74 12/10/16 01:00 85 12/10/16 00:00 86 12/10/16 00:00 99.0 87 20 129/88 95 12/09/16 23:00 93 12/09/16 22:00 74 12/09/16 21:46 18 12/09/16 21:00 76 12/09/16 20:00 99.3 84 20 126/89 93 12/09/16 20:00 76 12/09/16 19:00 87 12/09/16 18:00 80 12/09/16 17:00 84 12/09/16 16:00 94 12/09/16 15:00 98.1 88 16 112/75 94 12/09/16 15:00 86 12/09/16 14:03 87 12/09/16 13:00 80 12/09/16 12:00 79 12/09/16 11:00 98.5 86 16 106/69 95 12/09/16 11:00 90 12/09/16 10:00 112 I/O 12/09/16 12/09/16 12/09/16 12/10/16 12/10/16 12/10/16 07:00 15:00 23:00 07:00 15:00 23:00 Intake Total 495 ml 420 ml 402 ml Output Total 650 ml 450 ml Balance -155 ml -30 ml 402 ml Intake Oral 360 ml 420 ml 240 ml IV Total 135 ml 162 ml Output Urine Total 650 ml 450 ml # Voids 2 # Bowel Movements 0 0 0 Result Diagram: 12/09/16 0609 12/07/16 0220 Objective Remarks GENERAL: NAD SKIN: Warm and dry. HEAD: Normocephalic. EYES: No scleral icterus. No injection or drainage. NECK: Supple, trachea midline. No JVD or lymphadenopathy. CARDIOVASCULAR: Regular rate and rhythm without murmurs, gallops, or rubs. RESPIRATORY: Breath sounds equal bilaterally. No accessory muscle use. GASTROINTESTINAL: Abdomen soft, non-tender, nondistended. MUSCULOSKELETAL: No cyanosis, or edema. BACK: Nontender without obvious deformity. No CVA tenderness. A/P Problem List: (1) Multi-vessel coronary artery stenosis ICD Code: I25.10 Status: Acute (2) NSTEMI (non-ST elevated myocardial infarction) ICD Code: I21.4 Status: Acute (3) Atrial fibrillation with RVR ICD Code: I48.91 Status: Acute (4) Diabetes mellitus, type II ICD Code: E11.9 Status: Acute (5) Benign hypertension ICD Code: I10 Status: Acute (6) Hyperlipidemia ICD Code: E78.5 Status: Acute (7) Hypokalemia ICD Code: E87.6 Status: Resolved (8) History of seizure ICD Code: Z87.898 Status: Acute (9) Anxiety and depression ICD Code: F41.9 Status: Acute Assessment and Plan 71-year-old man with Multivessel coronary artery stenosis: Status post left heart catheterization with finding of Multivessel coronary artery disease with significant proximal LAD, ostial first diagonal, mid-second obtuse marginal; for which cardiothoracic surgery has been consulted for evaluation of CABG and plan for surgery today 12/10/16. Continue with heparin drip/Imdur/Statin/ASA/ Nitro drip Non-ST elevation MD: Status post left heart catheterization 12/06/16 with finding of multivessel coronary artery disease stenosis. Appreciate input from cardiology 2-D echo with EF 35-%. Continue heparin drip/Nitro drip/Imdur/statin /ASA Atrial fibrillation rapid ventricular response: currently on Cardizem drip and appreciate input from cardiology Diabetes type 2: Continue to Hold oral hypoglycemic agent, continue insulin sliding scale with fingerstick blood glucose monitoring Hyperlipidemia, hypertension, seizure disorder, diabetic neuropathy: Continue outpatient medications Hypokalemia: Replace electrolyte Depressed mood: Currently on Lexapro as of 12/09/16 and consider psychiatry consultation if no improvement DVT prophylaxis: Riley Burton MD Dec 10, 2016 10:00
[2016-12-10] MEDS ORDERED: DOBUTamine PREMIX DRIP 250 ML IV SCH (11:28)
[2016-12-10] MEDS ORDERED: LACTATED RINGER'S 1000 ML INJ 500 ML IV PRN ×2 (11:28→11:45)
[2016-12-10] MEDS ORDERED: CALCIUM CHLORIDE 10% 1 GRAM/10 ML VIAL IV PRN (11:30)
[2016-12-10] MEDS ORDERED: INSULIN REGULAR (IV INFUSION) 100 UNITS in SODIUM CHLORIDE 0.9% INJ 99 ML IV SCH (11:30)
[2016-12-10] MEDS ORDERED: METOPROLOL TARTRATE 5 MG/5 ML VIAL IV PUSH PRN (11:30)
[2016-12-10] MEDS ORDERED: ACETAMINOPHEN 650 MG SUPP RECTAL PRN (11:30)
[2016-12-10] MEDS ORDERED: CALCIUM CHLORIDE INJ 1 GM in SODIUM CHLORIDE 0.9% INJ 100 ML IV PRN (11:30)
[2016-12-10] MEDS ORDERED: ONDANSETRON HCL 4 MG/2 ML VIAL IV PUSH PRN (11:30)
[2016-12-10] MEDS ORDERED: Post-op Orders (for Pharmacy) MISC OTHER ONE (11:30)
[2016-12-10] MEDS ORDERED: CLEVIDIPINE INJ 50 ML IV SCH (11:30)
[2016-12-10] MEDS ORDERED: POTASSIUM CHLOR 20 MEQ PREMIX 100 ML IV PRN ×2 (11:30)
[2016-12-10] MEDS ORDERED: DEXTROSE 50% IN WATER 50 ML VIAL(D50) IV PUSH PRN (11:30)
[2016-12-10] MEDS ORDERED: POTASSIUM CHLORIDE 20 MEQ CONTROLLED RELEASE TAB PO PRN ×2 (11:30)
[2016-12-10] MEDS ORDERED: hydrALAZINE HCL 20 MG/ML VIAL IV PRN (11:30)
[2016-12-10] MEDS ORDERED: MAGNESIUM SULFATE INJ 2 GM in SODIUM CHLORIDE 0.9% INJ 100 ML IV PRN (11:30)
[2016-12-10] MEDS ORDERED: ACETAMINOPHEN 325 MG TAB PO PRN (11:30)
--- NOTE | 2016-12-10 11:45 | PD.OP ---
cc: Marizol Banks MD; Saw Chairez DO Operative Report Date of Surgery: Dec 10, 2016 Preoperative Diagnosis: (1) CAD (coronary artery disease) (2) NSTEMI (non-ST elevated myocardial infarction) Postoperative Diagnosis: same Procedure: Urgent CABG x 3 BISWAS to LAD - good SVG to OM2 - good SVG to D1 - good EVH Anesthesia: Dr. Simeon Surgeon: Marizol Banks Emergency Medicine(s): Raphael Shaffer Operation and Findings: The risks, benefits, complications, treatment options, and expected outcomes were discussed with the patient. The possibilities of reaction to medication, pulmonary aspiration, perforation of viscus, bleeding, recurrent infection, the need for additional procedures, failure to diagnose a condition, and creating a complication requiring transfusion or operation were discussed with the patient. The patient concurred with the proposed plan, giving informed consent. The site of surgery properly noted/marked. The patient was taken to Operating Room, identified as Andrea Holman and the procedure verified as CABG, EVH. A Time Out was held and the above information confirmed. Standard monitoring lines and Macias catheter were placed. General anesthesia was induced. The patient was prepped and draped in a sterile fashion. A median sternotomy was performed and electrocautery was used to obtain hemostasis. The left internal mammary artery was procured as a pedicle from the 7th rib to the 1st rib in the usual manner. Simultaneously left greater saphenous vein was procured from the left leg using a minimally invasive endoscopic technique. The vein was prepared for anastomosis and the leg wound was irrigated and closed in 2 layers. The pericardium was opened and a pericardial sling was created using interrupted 0 silk sutures. The patient was heparinized for cardiopulmonary bypass and the distal mammary pedicle was instrumented for anastomosis. The heart was instrumented for cardiopulmonary bypass in the usual manner. Antegrade blood cardioplegia was employed. The patient was placed on cardiopulmonary bypass. An aortic cross-clamp was applied and the heart was arrested using cold blood cardioplegia. Antegrade cardioplegia was administered after he each anastomosis. After adequate arrest, the OM2 artery was opened with a Byers blade and found to be a 1.5 millimeter good target. Saphenous vein was approximated to the OM2 artery using a running 7 0 Prolene suture. The graft was measured for length and orientation and the proximal anastomosis was constructed to the ascending aorta using a running 5 0 Prolene suture after creating an aortotomy with a 5 millimeter punch. The 1st diagonal artery was then opened with a Byers blade and found to be a 1.5 millimeter good target. Saphenous vein was approximated to the D1 artery using a running 7 0 Prolene suture. The graft was measured for length and orientation and was suspended from the pericardium. The distal LAD was opened with a Byers blade and found to be a 1.5 millimeter good target. The left internal mammary artery was approximated to the LAD using a running 7 0 Prolene suture. The pedicle was attached to the epicardium using interrupted 5 0 silk suture. The patient was systemically rewarmed and received a hotshot dose of warm blood cardioplegia. The aorta was vented and the proximal anastomosis to the D1 graft was accomplished using a running 5 0 Prolene suture after creating an aortotomy was a 5 millimeter punch. The cross -clamp was removed and all proximal and distal anastomoses were examined for hemostasis. Temporary atrial and ventricular pacing wires were positioned and brought out through the skin in the usual manner. The patient was paced at 80 beats per minute and weaned from cardiopulmonary bypass. Protamine was given. There was no adverse reaction. Decannulation was carried out without incident. Wound was checked for hemostasis which was obtained using electrocautery. A 36 Mexican mediastinal and 32 Mexican left pleural chest tubes were placed and secured to the skin with 0 silk suture. The sternum was closed with stainless steel wire. The fascia was closed with 1. PDS. The subcutaneous tissue was closed using a running 2-0 Vicryl suture. The skin was closed with 4-0 Monocryl. Sterile dressings were placed. At the end of the operation, all sponge, instruments, and needle counts were correct. The patient was transferred to the CVICU in stable condition. Findings: good distal targets. hyperinflated lungs XC: 55 min CPB: 77 min Drains: mediastinal x 1 pleural x 1 Complications: none Disposition: to CVICU in stable condition Pacing Wires: 2 atrial and 2 ventricular Marizol Banks MD Dec 10, 2016 11:45
[2016-12-10] MEDS ORDERED: ACETAMINOPHEN 1000 MG/100 ML VIAL IV SCH (12:00)
--- NOTE | 2016-12-10 12:33 | PD.CARD.PN ---
Subjective Subjective Remarks Just out of surgery, hemodynamically stable Objective Medications Current Medications Medications (Trade) Dose Ordered Sig/Romie Route Start Time Stop Time Status Last Admin (Heparin-D5W Inj) 250 ml @ 0 mls/hr TITRATE IV 12/06/16 11:00 12/10/16 03:48 (NS Flush) 2 ml BID IV FLUSH 12/06/16 21:00 12/08/16 20:57 (NS Flush) 2 ml UNSCH PRN IV FLUSH 12/06/16 11:45 (Aspirin Chew) 162 mg DAILY PO 12/07/16 09:00 12/09/16 08:49 ([place] 7.5-325 Mg) 1 tab Q4H PRN PO 12/06/16 11:45 (Mag-Al Plus Susp Liq) 30 ml QID PO 12/06/16 13:00 12/07/16 14:23 (Restoril) 15 mg HS PRN PO 12/06/16 21:00 (Glucagon Inj) 1 mg UNSCH PRN OTHER 12/06/16 12:30 (Keppra) 750 mg BID PO 12/06/16 21:00 12/09/16 20:34 (Pravachol) 40 mg DAILY PO 12/07/16 09:00 12/09/16 08:50 (Oramorph Sr) 30 mg Q12H PO 12/08/16 19:00 12/09/16 20:37 Escitalopram Oxalate 10 mg 10 mg DAILY PO 12/09/16 13:00 12/09/16 13:36 Dobutamine HCl/ Dextrose 250 ml @ 14.7 mls/hr Q17H1M IV 12/10/16 11:28 Clevidipine 50 ml @ 2 mls/hr TITRATE IV 12/10/16 11:30 (Ancef Inj/NS Inj) 100 ml @ 200 mls/hr Q8H IV 12/10/16 11:30 12/11/16 19:59 UNV (Protonix) 40 mg DAILY@06 PO 12/11/16 06:00 (Reglan Inj) 10 mg ACHS IV PUSH 12/10/16 16:00 (Cordarone) 400 mg Q8HR PO 12/10/16 14:00 (Tylenol) 650 mg Q4H PRN PO 12/10/16 11:30 (Tylenol Supp) 650 mg Q4H PRN RECTAL 12/10/16 11:30 (Ofirmev Inj) 1,000 mg Q6H IV 12/10/16 12:00 12/11/16 06:01 (fentaNYL INJ) 25 mcg Q1H PRN IV 12/10/16 11:30 (Zofran Inj) 4 mg Q6H PRN IV PUSH 12/10/16 11:30 (Apresoline Inj) 10 mg Q4H PRN IV 12/10/16 11:30 Metoprolol Tartrate 2.5 mg 2.5 mg Q1H PRN IV PUSH 12/10/16 11:30 Potassium Chloride 100 ml @ 50 mls/hr UNSCH PRN IV 12/10/16 11:30 Potassium Chloride 100 ml @ 50 mls/hr UNSCH PRN IV 12/10/16 11:30 Potassium Chloride 100 ml @ 50 mls/hr UNSCH PRN IV 12/10/16 11:30 Magnesium Sulfate 2 gm/Sodium Chloride 104 ml @ 100 mls/hr UNSCH PRN IV 12/10/16 11:30 Magnesium Sulfate 2 gm/Sodium Chloride 104 ml @ 50 mls/hr UNSCH PRN IV 12/10/16 11:30 (Calcium Chloride Inj/NS Inj) 110 ml @ 100 mls/hr UNSCH PRN IV 12/10/16 11:30 Calcium Chloride 0.5 gm 0.5 gm UNSCH PRN IV 12/10/16 11:30 (NovoLIN R (IV INFUSION)/NS Inj) 100 ml @ 0 mls/hr TITRATE IV 12/10/16 11:30 Dextrose 25 ml 25 ml UNSCH PRN IV PUSH 12/10/16 11:30 (Lr 1000 ml Inj) 500 ml @ 500 mls/hr Q1H PRN IV 12/10/16 11:45 Vital Signs / I&O Vital Signs Date Time Temp Pulse Resp B/P Pulse Ox O2 Delivery O2 Flow Rate FiO2 12/10/16 12:10 97 40 12/10/16 06:00 82 12/10/16 05:00 73 12/10/16 05:00 98.4 96 20 125/72 93 12/10/16 04:00 95 12/10/16 03:00 88 12/10/16 02:00 74 12/10/16 01:00 85 12/10/16 00:00 86 12/10/16 00:00 99.0 87 20 129/88 95 12/09/16 23:00 93 12/09/16 22:00 74 12/09/16 21:46 18 12/09/16 21:00 76 12/09/16 20:00 99.3 84 20 126/89 93 12/09/16 20:00 76 12/09/16 19:00 87 12/09/16 18:00 80 12/09/16 17:00 84 12/09/16 16:00 94 12/09/16 15:00 98.1 88 16 112/75 94 12/09/16 15:00 86 12/09/16 14:03 87 12/09/16 13:00 80 I/O 12/09/16 12/09/16 12/09/16 12/10/16 12/10/16 12/10/16 07:00 15:00 23:00 07:00 15:00 23:00 Intake Total 495 ml 420 ml 402 ml Output Total 650 ml 450 ml Balance -155 ml -30 ml 402 ml Intake Oral 360 ml 420 ml 240 ml IV Total 135 ml 162 ml Output Urine Total 650 ml 450 ml # Voids 2 # Bowel Movements 0 0 0 Physical Exam GENERAL: Sedated on the vent SKIN: Dry HEAD: Atraumatic. Normocephalic. EYES: Pupils equal and round. No scleral icterus. No injection or drainage. ENT: No nasal bleeding or discharge. Mucous membranes pink and moist. NECK: Trachea midline. No JVD. CARDIOVASCULAR: Irregularly irregular RESPIRATORY: No accessory muscle use. Decreased breath sounds bilaterally GASTROINTESTINAL: Abdomen soft, non-tender, nondistended. Hepatic and splenic margins not palpable. MUSCULOSKELETAL: Extremities without clubbing, cyanosis, or edema. B/L lower extremities cool NEUROLOGICAL: Sedated on the vent Laboratory Laboratory Tests Test 12/10/16 06:15 Activated Partial 35.7 SEC Thromboplast Time Assessment and Plan Problem List: (1) Multi-vessel coronary artery stenosis (2) Atrial fibrillation with RVR (3) NSTEMI (non-ST elevated myocardial infarction) (4) Hyperlipidemia (5) Diabetes mellitus, type II (6) History of seizure (7) Benign hypertension (8) Tobacco abuse (9) anxiety / depression Assessment and Plan 1) MVCAD s/p CABG POD#0 BISWAS to LAD SVG to OM2 SVG to D1 2) EF 35-40%, mild to mod MR pre-operatively 3) Not a great long winder tender anticoagulation candidate due to multiple falls 4) Minimal hemodynamic support with Dobutamine 5) FIO2 40% on the vent Saw Chairez DO Dec 10, 2016 12:33
[2016-12-10] MEDS: POTASSIUM CHLOR 20 MEQ PREMIX 100 ML IV PRN ×2 (12:38→14:37)
[2016-12-10] MEDS ORDERED: MIDAZOLAM HCL 5 MG/5 ML VIAL ONE (12:44)
[2016-12-10] MEDS ORDERED: fentaNYL CITRATE 1000 MCG/20 ML VIAL ONE (12:45)
--- NOTE | 2016-12-10 13:06 | RADRPT ---
EXAM DATE/TIME: 12/10/2016 12:17 [facility] COMPARISON: CHEST SINGLE AP, December 06, 2016, 10:00. INDICATIONS : S/P CABG. MEDICAL HISTORY : CVA. Seizure. Blindness. CAD. Hypercholesterol. Afib. Diabetic SURGICAL HISTORY : None. ENCOUNTER: Subsequent ACUITY: 4 - 6 days PAIN SCORE: Non-responsive. LOCATION: Bilateral chest FINDINGS: NG tube is present with tip in the stomach. ET tube is present with tip overlapping approximately 4 c m above the heriberto. There is collapse of the right upper lobe may be due to mucous plugging. This was not present previously. There is also dense consolidation of the right lower medial lung could also be due to collapsed not present previously. Chest tube is present on the left side. No definite pneum othorax is seen for technique. Mediastinal drainage tube is in place. There is evidence for prior med christy sternotomy. CONCLUSION: Right upper lobe collapse and consolidation and/or collapse of the right lower and medial lung. Danni Grimm MD on December 10, 2016 at 13:02 Board Certified Radiologist. This report was verified electronically.
[2016-12-10] MEDS: AMIODARONE 200 MG TAB PO SCH ×2 (14:00→21:52)
[2016-12-10] MEDS ORDERED: SODIUM CHLOR 0.9% 1000 ML INJ 1,000 ML IV ONE (14:01)
[2016-12-10] MEDS ORDERED: SODIUM CHLOR 0.9% 250 ML INJ 250 ML IV ONE (14:01)
[2016-12-10] MEDS ORDERED: SODIUM CHLORIDE 0.9% INJ 100 ML IV ONE (14:01)
[2016-12-10] MEDS ORDERED: SODIUM CHLORID 0.9% 500 ML INJ 500 ML IV ONE (14:02)
[2016-12-10] MEDS ORDERED: NORMOSOL R INJ 2,000 ML IV ONE (14:02)
[2016-12-10] MEDS: METOCLOPRAMIDE HCL 10 MG/2 ML VIAL IV PUSH SCH ×2 (15:49→21:52)
[2016-12-10] MEDS ORDERED: FUROSEMIDE 40 MG/4 ML VIAL ONE (16:39)
[2016-12-10] MEDS: SODIUM CHLORIDE 0.9% FLUSH 10 ML FLUSH IV FLUSH SCH ×2 (17:01→21:00)
[2016-12-10] MEDS ORDERED: RESP: ALBUTEROL 2.5 MG/IPRATROPIUM 0.5 MG NEB (PRN) NEB (17:30)
[2016-12-10] MEDS ORDERED: RESP: RACEPINEPHRINE 2.25% 0.5 ML NEB NEB PRN (17:30)
[2016-12-10] MEDS ORDERED: FUROSEMIDE 40 MG/4 ML VIAL IV PUSH ONE (17:30)
[2016-12-10] MEDS: MAGNESIUM SULFATE INJ 2 GM in SODIUM CHLORIDE 0.9% INJ 100 ML IV PRN (17:41)
[2016-12-10 22:08] LABS: MAGNESIUM 2.1 MG/DL (1.5-2.5); POTASSIUM 4.4 MEQ/L (3.5-5.1)
[2016-12-10] MEDS: RESP: ALBUTEROL 2.5 MG/IPRATROPIUM 0.5 MG NEB (SCH) NEB (22:35)
[2016-12-11] VITALS (9 sets, daily range): BP systolic 93–148; BP diastolic 55–92; PULSE 92–116; RESP 16–22; TEMP 97.3–98.7; O2SAT 92–95
[2016-12-11] MEDS: MORPHINE SULFATE 15 MG TAB PO PRN ×2 (01:32→13:32)
[2016-12-11 04:25] LABS: MEAN CELL VOLUME 85.1 FL (80.0-100.0); MEAN CORPUSCULAR HEMOGLOBIN 29.8 PG (27.0-34.0); PLATELET COUNT 171 TH/MM3 (150-450); RED BLOOD COUNT 4.34 MIL/MM3 (4.50-5.90); RED CELL DISTRIBUTION WIDTH 13.5 % (11.6-17.2); REVIEW FLAG FINAL; WHITE BLOOD COUNT 16.4 TH/MM3 (4.0-11.0)
[2016-12-11 04:37] LABS: APTT (PATIENT) 28.7 SEC (24.3-30.1)
[2016-12-11 04:58] LABS: BICARBONATE 26.1 MEQ/L (21.0-32.0); MAGNESIUM 1.8 MG/DL (1.5-2.5)
[2016-12-11] MEDS: RESP: ALBUTEROL 2.5 MG/IPRATROPIUM 0.5 MG NEB (SCH) NEB ×4 (05:09→19:56)
[2016-12-11] MEDS: PANTOPRAZOLE SOD 40 MG DELAYED RELEASE TAB PO SCH (05:30)
[2016-12-11] MEDS: AMIODARONE 200 MG TAB PO SCH ×3 (05:37→20:54)
--- NOTE | 2016-12-11 05:38 | RADRPT ---
EXAM DATE/TIME: 12/11/2016 04:37 [facility] COMPARISON: CHEST SINGLE AP, December 10, 2016, 12:17. INDICATIONS : Shortness of breath, possible pulmonary disease. MEDICAL HISTORY : Diabetes mellitus type II. Hypercholesterolemia. CVA Seizure A-fib SURGICAL HISTORY : CABG. ENCOUNTER: Subsequent ACUITY: 4 - 6 days PAIN SCORE: 4/10 LOCATION: Bilateral chest FINDINGS: A single portable frontal view of the chest shows reexpansion of the right upper lobe. Consolidation is now seen within the right lung base which is new. Low lung volumes bilaterally. Left lung is clear . Left thoracostomy tube without pneumothorax. Left subclavian central line. Median sternotomy wires. Heart is normal in size. CONCLUSION: 1. New consolidation within the right lower lobe. 2. No pneumothorax. Fernie Velázquez Jr., MD on December 11, 2016 at 5:36 Board Certified Radiologist. This report was verified electronically.
[2016-12-11] MEDS: MORPHINE SULFATE 4 MG/ML INJ IV PUSH PRN ×2 (06:01→23:28)
[2016-12-11] MEDS: METOCLOPRAMIDE HCL 10 MG/2 ML VIAL IV PUSH SCH ×4 (06:02→20:54)
[2016-12-11] MEDS: MAGNESIUM SULFATE INJ 2 GM in SODIUM CHLORIDE 0.9% INJ 100 ML IV PRN (06:40)
[2016-12-11] MEDS: PRAVASTATIN SOD 40 MG TAB PO SCH (08:33)
[2016-12-11] MEDS: ASPIRIN 81 MG CHEW TAB PO SCH (08:33)
[2016-12-11] MEDS: ESCITALOPRAM OXALATE 10 MG TAB PO SCH (08:33)
[2016-12-11] MEDS: MORPHINE SULFATE 30 MG CONTROLLED RELEASE TAB PO SCH ×2 (08:34→19:00)
[2016-12-11] MEDS: levETIRAcetam 250 MG TAB PO SCH ×2 (08:34→20:53)
[2016-12-11] MEDS: SODIUM CHLORIDE 0.9% FLUSH 10 ML FLUSH IV FLUSH SCH ×2 (08:34→20:53)
--- NOTE | 2016-12-11 08:59 | PD.CAR.PN ---
CVT Progress Note Subjective/Hospital Course: 71/ male [facility] chest pain / HX CAD/ prior CT / admit with NSTEMI / s/p heart cath multi vessel disease. 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/ anxiety depression , HTN, afib, DM 12/07 pt on Heparin and imdur, statin, ASA pain free, tentatively scheduled for surgery on Friday 12/08 pt developed midsternal chest pain this am 03/31 now 08/31, received morphine and started on NTG gtt remains on NTG gtt scheduled for surgery on Tuesday / remains in Afib rate controlled, some occasional 2-3 sec pauses 12/09 no further chest pain, c/o feeling depressed agreeable for surgery in am on Heparin gtt OR in am 12/10 Procedure: Urgent CABG x 3 BISWAS to LAD - good SVG to OM2 - good SVG to D1 - good EVH 12/11 Doing well Incisional pain Needs pulmonary toiletry Transfer [facility] Objective: Vital Signs Date Time Temp Pulse Resp B/P Pulse Ox O2 Delivery O2 Flow Rate FiO2 12/11/16 08:11 92 Nasal Cannula 5.00 12/11/16 07:00 112 12/11/16 07:00 97.6 112 22 148/92 93 12/11/16 03:00 105 12/11/16 03:00 97.3 102 18 119/87 95 12/10/16 23:58 18 12/10/16 23:00 115 12/10/16 23:00 99.0 113 16 135/97 94 12/10/16 21:37 96 Nasal Cannula 5.00 12/10/16 21:05 98 12/10/16 19:00 113 12/10/16 19:00 99.0 96 9 114/80 98 Arterial Line 12/10/16 16:45 94 70 12/10/16 16:30 89 Non-Rebreather 15.00 12/10/16 16:10 93 Nasal Cannula 5.00 12/10/16 15:00 98.2 97 14 95 127/58 12/10/16 15:00 97 12/10/16 15:00 60 12/10/16 14:50 88 60 12/10/16 14:30 92 50 12/10/16 12:30 97.5 113 14 98/65 89 92/56 12/10/16 12:30 97.8 12/10/16 12:30 113 12/10/16 12:30 50 12/10/16 12:22 85 100 12/10/16 12:10 97 40 Labs: Laboratory Tests Test 12/10/16 12/11/16 21:39 04:11 Potassium Level 4.4 MEQ/L 4.0 MEQ/L (3.5-5.1) (3.5-5.1) Magnesium Level 2.1 MG/DL 1.8 MG/DL (1.5-2.5) (1.5-2.5) White Blood Count 16.4 TH/MM3 (4.0-11.0) Red Blood Count 4.34 MIL/MM3 (4.50-5.90) Hemoglobin 12.9 GM/DL (13.0-17.0) Hematocrit 37.0 % (39.0-51.0) Mean Corpuscular Volume 85.1 FL (80.0-100.0) Mean Corpuscular Hemoglobin 29.8 PG (27.0-34.0) Mean Corpuscular Hemoglobin 35.0 % Concent (32.0-36.0) Red Cell Distribution Width 13.5 % (11.6-17.2) Platelet Count 171 TH/MM3 (150-450) Mean Platelet Volume 10.0 FL (7.0-11.0) Activated Partial 28.7 SEC Thromboplast Time (24.3-30.1) Sodium Level 140 MEQ/L (136-145) Chloride Level 103 MEQ/L (98-107) Carbon Dioxide Level 26.1 MEQ/L (21.0-32.0) Anion Gap 11 MEQ/L (5-15) Blood Urea Nitrogen 12 MG/DL (7-18) Creatinine 1.03 MG/DL (0.60-1.30) Estimat Glomerular Filtration 72 ML/MIN (>89) Rate Random Glucose 108 MG/DL (74-106) Calcium Level 8.6 MG/DL (8.5-10.1) Result Diagram: 12/11/1641012/11/16410 (1) Multi-vessel coronary artery stenosis Plan: on ASA, statin , BB Heparin gtt , NTG gtt scheduled for surgery on Tuesday (2) Atrial fibrillation with RVR Plan: no afib some 2-3 sec pauses (3) NSTEMI (non-ST elevated myocardial infarction) (4) Hyperlipidemia Plan: on statin (5) Diabetes mellitus, type II Plan: HGB A1c 7.3 (6) History of seizure Plan: home meds resumed (7) Benign hypertension (8) Tobacco abuse Plan: tobacco cessation (9) anxiety / depression Plan: hx of mood disorder/ psych consult Kieran Mazariegos MD Dec 11, 2016 08:59
[2016-12-11] MEDS ORDERED: GLUCAGON 1 MG/ML VIAL OTHER PRN (09:00)
[2016-12-11] MEDS ORDERED: BISACODYL 10 MG SUPP RECTAL PRN (09:00)
[2016-12-11] MEDS ORDERED: DEXTROSE 50% IN WATER 50 ML VIAL(D50) IV PRN (09:00)
[2016-12-11] MEDS ORDERED: SOD PHOSPHATE/SOD BIPHOSPHATE (ADULT) ENEMA 133ML RECTAL PRN (09:00)
[2016-12-11] MEDS: ALUMINUM/MAGNESIUM/SIMETH 30 ML CUP PO SCH ×4 (09:00→21:00)
--- NOTE | 2016-12-11 09:23 | PD.CARD.PN ---
Subjective Subjective Remarks Appropriate chest pain, no shortness of breath Up out of bed to the chair Objective Medications Current Medications Medications (Trade) Dose Ordered Sig/Romie Route Start Time Stop Time Status Last Admin (Heparin-D5W Inj) 250 ml @ 0 mls/hr TITRATE IV 12/06/16 11:00 12/10/16 03:48 (NS Flush) 2 ml BID IV FLUSH 12/06/16 21:00 12/11/16 08:34 (NS Flush) 2 ml UNSCH PRN IV FLUSH 12/06/16 11:45 (Aspirin Chew) 162 mg DAILY PO 12/07/16 09:00 12/11/16 08:33 (Mag-Al Plus Susp Liq) 30 ml QID PO 12/06/16 13:00 12/10/16 21:52 (Restoril) 15 mg HS PRN PO 12/06/16 21:00 (Glucagon Inj) 1 mg UNSCH PRN OTHER 12/06/16 12:30 (Keppra) 750 mg BID PO 12/06/16 21:00 12/11/16 08:34 (Pravachol) 40 mg DAILY PO 12/07/16 09:00 12/11/16 08:33 (Oramorph Sr) 30 mg Q12H PO 12/08/16 19:00 12/11/16 08:34 Escitalopram Oxalate 10 mg 10 mg DAILY PO 12/09/16 13:00 12/11/16 08:33 (Cleviprex Inj) 50 ml @ 2 mls/hr TITRATE IV 12/10/16 11:30 12/10/16 14:38 (Protonix) 40 mg DAILY@06 PO 12/11/16 06:00 12/11/16 05:30 (Reglan Inj) 10 mg ACHS IV PUSH 12/10/16 16:00 12/11/16 06:02 (Cordarone) 400 mg Q8HR PO 12/10/16 14:00 12/11/16 05:37 (fentaNYL INJ) 25 mcg Q1H PRN IV 12/10/16 11:30 12/10/16 18:40 (Zofran Inj) 4 mg Q6H PRN IV PUSH 12/10/16 11:30 (Apresoline Inj) 10 mg Q4H PRN IV 12/10/16 11:30 Metoprolol Tartrate 2.5 mg 2.5 mg Q1H PRN IV PUSH 12/10/16 11:30 Potassium Chloride 100 ml @ 50 mls/hr UNSCH PRN IV 12/10/16 11:30 12/10/16 17:31 Potassium Chloride 100 ml @ 50 mls/hr UNSCH PRN IV 12/10/16 11:30 12/10/16 14:37 Potassium Chloride 100 ml @ 50 mls/hr UNSCH PRN IV 12/10/16 11:30 Magnesium Sulfate 2 gm/Sodium Chloride 104 ml @ 100 mls/hr UNSCH PRN IV 12/10/16 11:30 Magnesium Sulfate 2 gm/Sodium Chloride 104 ml @ 50 mls/hr UNSCH PRN IV 12/10/16 11:30 12/11/16 06:40 (Calcium Chloride Inj/NS Inj) 110 ml @ 100 mls/hr UNSCH PRN IV 12/10/16 11:30 12/10/16 16:43 Calcium Chloride 0.5 gm 0.5 gm UNSCH PRN IV 12/10/16 11:30 (NovoLIN R (IV INFUSION)/NS Inj) 100 ml @ 0 mls/hr TITRATE IV 12/10/16 11:30 Dextrose 25 ml 25 ml UNSCH PRN IV PUSH 12/10/16 11:30 Lactated Ringer's 500 ml @ 500 mls/hr Q1H PRN IV 12/10/16 11:45 (Ancef Inj/NS Inj) 100 ml @ 200 mls/hr Q8H IV 12/10/16 20:00 12/12/16 04:29 12/11/16 05:30 (Msir) 15 mg Q6H PRN PO 12/10/16 17:30 12/11/16 01:32 (Morphine Inj) 2 mg Q3H PRN IV PUSH 12/11/16 06:00 12/11/16 06:01 (Colace) 100 mg BID PO 12/11/16 21:00 UNV (Theragran M Tab) 1 tab DAILY PO 12/11/16 09:00 UNV (Milk Of Magnesia Liq) 30 ml DAILY PO 12/11/16 09:00 UNV (Miralax) 17 gm DAILY PO 12/12/16 09:00 UNV (Senokot) 8.6 mg HS PO 12/11/16 21:00 UNV (Fleets Enema (Adult)) 133 ml UNSCH PRN RECTAL 12/11/16 09:00 UNV (Lopressor) 12.5 mg BID PO 12/11/16 09:00 UNV (NovoLOG SUPPLEMENTAL SCALE) 1 02,06,10,14,18,22 SQ 12/11/16 10:00 UNV (D50w (Vial) Inj) 25 ml UNSCH PRN IV 12/11/16 09:00 (Glucagon Inj) 1 mg UNSCH PRN OTHER 12/11/16 09:00 UNV Vital Signs / I&O Vital Signs Date Time Temp Pulse Resp B/P Pulse Ox O2 Delivery O2 Flow Rate FiO2 12/11/16 08:11 92 Nasal Cannula 5.00 12/11/16 07:00 112 12/11/16 07:00 97.6 112 22 148/92 93 12/11/16 03:00 105 12/11/16 03:00 97.3 102 18 119/87 95 12/10/16 23:58 18 12/10/16 23:00 115 12/10/16 23:00 99.0 113 16 135/97 94 12/10/16 21:37 96 Nasal Cannula 5.00 12/10/16 21:05 98 12/10/16 19:00 113 12/10/16 19:00 99.0 96 9 114/80 98 Arterial Line 12/10/16 16:45 94 70 12/10/16 16:30 89 Non-Rebreather 15.00 12/10/16 16:10 93 Nasal Cannula 5.00 12/10/16 15:00 98.2 97 14 95 127/58 12/10/16 15:00 97 12/10/16 15:00 60 12/10/16 14:50 88 60 12/10/16 14:30 92 50 12/10/16 12:30 97.5 113 14 98/65 89 92/56 12/10/16 12:30 97.8 12/10/16 12:30 113 12/10/16 12:30 50 12/10/16 12:22 85 100 12/10/16 12:10 97 40 I/O 12/10/16 12/10/16 12/10/16 12/11/16 12/11/1617 07:00 15:00 23:00 07:00 15:00 23:00 Intake Total 402 ml 2374 ml 1664 ml Output Total 2660 ml 1245 ml Balance 402 ml -286 ml 419 ml Intake Oral 240 ml 1440 ml IV Total 162 ml 2374 ml 224 ml Output Urine Total 2490 ml 1065 ml Gastric Drainage Total 0 ml Chest Tube Drainage Total 170 ml 180 ml # Voids 2 # Bowel Movements 0 0 0 Physical Exam GENERAL: NAD, AAOx3 SKIN: Dry HEAD: Atraumatic. Normocephalic. EYES: Pupils equal and round. No scleral icterus. No injection or drainage. ENT: No nasal bleeding or discharge. Mucous membranes pink and moist. NECK: Trachea midline. No JVD. CARDIOVASCULAR: Irregularly irregular RESPIRATORY: No accessory muscle use. Decreased breath sounds bilaterally GASTROINTESTINAL: Abdomen soft, non-tender, nondistended. Hepatic and splenic margins not palpable. MUSCULOSKELETAL: Extremities without clubbing, cyanosis, or edema. NEUROLOGICAL: No focal deficits Laboratory Laboratory Tests Test 12/10/16 12/11/16 21:39 04:11 Potassium Level 4.4 MEQ/L 4.0 MEQ/L Magnesium Level 2.1 MG/DL 1.8 MG/DL White Blood Count 16.4 TH/MM3 Red Blood Count 4.34 MIL/MM3 Hemoglobin 12.9 GM/DL Hematocrit 37.0 % Mean Corpuscular Volume 85.1 FL Mean Corpuscular Hemoglobin 29.8 PG Mean Corpuscular Hemoglobin 35.0 % Concent Red Cell Distribution Width 13.5 % Platelet Count 171 TH/MM3 Mean Platelet Volume 10.0 FL Activated Partial 28.7 SEC Thromboplast Time Sodium Level 140 MEQ/L Chloride Level 103 MEQ/L Carbon Dioxide Level 26.1 MEQ/L Anion Gap 11 MEQ/L Blood Urea Nitrogen 12 MG/DL Creatinine 1.03 MG/DL Estimat Glomerular Filtration 72 ML/MIN Rate Random Glucose 108 MG/DL Calcium Level 8.6 MG/DL Assessment and Plan Problem List: (1) Multi-vessel coronary artery stenosis (2) Atrial fibrillation with RVR (3) NSTEMI (non-ST elevated myocardial infarction) (4) Hyperlipidemia (5) Diabetes mellitus, type II (6) History of seizure (7) Benign hypertension (8) Tobacco abuse (9) anxiety / depression Assessment and Plan 1) MVCAD s/p CABG POD#1 BISWAS to LAD SVG to OM2 SVG to D1 2) EF 35-40%, mild to mod MR pre-operatively 3) Not a great prison anticoagulation candidate due to multiple falls 4) ASA/Statin, BB added Saw Chairez DO Dec 11, 2016 09:23
[2016-12-11] MEDS ORDERED: RESP: ALBUTEROL 2.5 MG/IPRATROPIUM 0.5 MG NEB (PRN) NEB (09:30)
[2016-12-11] MEDS ORDERED: RESP: RACEPINEPHRINE 2.25% 0.5 ML NEB NEB PRN (09:30)
[2016-12-11] MEDS ORDERED: PILL SPLITTER OTHER PRN (09:30)
[2016-12-11] MEDS: METOPROLOL TARTRATE 25 MG TAB PO SCH ×2 (09:47→20:54)
[2016-12-11] MEDS: MULTIVITAMINS/MINERALS THERAPEUTIC TAB PO SCH (09:53)
[2016-12-11] MEDS: INSULIN ASPART SUPPLEMENTAL SCALE SQ SCH ×4 (11:06→21:45)
[2016-12-11] MEDS: MAGNESIUM HYDROXIDE SUSP 30 ML CUP PO SCH (12:27)
--- NOTE | 2016-12-11 13:58 | EKG ---
Date Performed: 12/11/2016 Time Performed: 04:39:04 PTAGE: 71 years EKG: Sinus tachycardia with PAC(s) Short MS interval Left axis deviation Continued non-specific ST-T wave changes Inferior infarct - age undetermined Lateral T wave changes are nonspecific Clinical correlation is recommended Abnormal ECG PREVIOUS TRACING : 12/06/2016 22.21 DOCTOR: Nirav Torres Interpretating Date/Time 12/11/2016 13:56:48
--- NOTE | 2016-12-11 14:47 | HHI.PR ---
Subjective Remarks Follow-up non-ST elevation SC/atrial fibrillation with rapid ventricular response /now multivessel disease. 12/07/16-patient seen and examined, currently denies any chest pain or shortness of breath since admission. Status post left heart catheterization . Case discussed with cardiology this morning. 12/08/16-patient seen and examined, complains of intermittent chest discomfort. Back on nitro drip 12/09/16-patient seen and examined, reports some improvement of intermittent chest discomfort. He complains of right hip pain. Patient is severely depressed\\ 12/10/16-patient seen and examined, nothing by mouth and heading to the OR for CABG 12/11/16-patient seen and examined. pulse up to the 110 this AM. Satting in the low 90s on 5L NC. Only complaint this afternoon is of CP at surgery site. Well controlled with morphine but medication "wears off too fast". No SOB. No F/C. Objective Vitals Vital Signs Date Time Temp Pulse Resp B/P Pulse Ox O2 Delivery O2 Flow Rate FiO2 12/11/16 11:00 98.1 98 22 93/55 92 12/11/16 11:00 98 12/11/16 08:11 92 Nasal Cannula 5.00 12/11/16 07:00 112 12/11/16 07:00 97.6 112 22 148/92 93 12/11/16 03:00 105 12/11/16 03:00 97.3 102 18 119/87 95 12/10/16 23:58 18 12/10/16 23:00 115 12/10/16 23:00 99.0 113 16 135/97 94 12/10/16 21:37 96 Nasal Cannula 5.00 12/10/16 21:05 98 12/10/16 19:00 113 12/10/16 19:00 99.0 96 9 114/80 98 Arterial Line 12/10/16 16:45 94 70 12/10/16 16:30 89 Non-Rebreather 15.00 12/10/16 16:10 93 Nasal Cannula 5.00 12/10/16 15:00 98.2 97 14 95 127/58 12/10/16 15:00 97 12/10/16 15:00 60 12/10/16 14:50 88 60 I/O 4/21/12/10/16 12/10/16 12/11/16 12/11/16 12/11/16 07:00 15:00 23:00 07:00 15:00 23:00 Intake Total 402 ml 2374 ml 1664 ml Output Total 2660 ml 1245 ml Balance 402 ml -286 ml 419 ml Intake Oral 240 ml 1440 ml IV Total 162 ml 2374 ml 224 ml Output Urine Total 2490 ml 1065 ml Gastric Drainage Total 0 ml Chest Tube Drainage Total 170 ml 180 ml # Voids 2 # Bowel Movements 0 0 0 Result Diagram: 12/11/1641012/11/16410 Objective Remarks GENERAL: Sitting up in chair. Appears sleepy. In NAD. SKIN: Warm and dry. CARDIOVASCULAR: Distant heart sounds. RRR. No murmurs. Wound dressing in place over surgery site. Anterior chest tube draining 350 cc serosanguineous fluid. RESPIRATORY: Breath sounds equal bilaterally. No accessory muscle use. Diminished breath sounds at the bases. CTAB. No adventitious sounds. GASTROINTESTINAL: Abdomen soft, non-tender, nondistended. MUSCULOSKELETAL: No cyanosis, or edema. BACK: Nontender without obvious deformity. No CVA tenderness. A/P Problem List: (1) Multi-vessel coronary artery stenosis ICD Code: I25.10 Status: Acute (2) NSTEMI (non-ST elevated myocardial infarction) ICD Code: I21.4 Status: Acute (3) Atrial fibrillation with RVR ICD Code: I48.91 Status: Acute (4) Diabetes mellitus, type II ICD Code: E11.9 Status: Acute (5) Benign hypertension ICD Code: I10 Status: Acute (6) Hyperlipidemia ICD Code: E78.5 Status: Acute (7) Hypokalemia ICD Code: E87.6 Status: Resolved (8) History of seizure ICD Code: Z87.898 Status: Acute (9) Anxiety and depression ICD Code: F41.9 Status: Acute Assessment and Plan 71-year-old man with 1. Multivessel coronary artery stenosis: Status post left heart catheterization 12/06/16 with finding of Multivessel coronary artery disease with significant proximal LAD, ostial first diagonal, mid-second obtuse marginal; for which cardiothoracic surgery has been consulted. S/p CABG x3 12/10/16. Continue with statin and ASA. Metoprolol 12.5mg BID added. Continue oramorph with PRN IV morphine. 2. Non-ST elevation SC: Status post left heart catheterization 12/06/16 with finding of multivessel coronary artery disease stenosis. Appreciate input from cardiology 2-D echo with EF 35-%. Cont BB/ASA/statin, as above. Not a great candidate for long-term anticoagulation 2/2 multiple falls. 3. Atrial fibrillation rapid ventricular response: previously on cardizem drip. Rate now relatively well controlled with metoprolol. Cont PRN IV metoprolol for HR >100. 4. Diabetes type 2: Continue to Hold oral hypoglycemic agent, continue insulin sliding scale with fingerstick blood glucose monitoring. 5. Hyperlipidemia, hypertension, seizure disorder, diabetic neuropathy: Continue outpatient medications 6. Hypokalemia: resolved. Monitor daily BMP. Depressed mood: Currently on Lexapro as of 12/09/16 and consider psychiatry consultation if no improvement DVT prophylaxis: SCDs. Consider chemical DVT ppx depending on how well patient ambulating once >24 hours post op. Will need to discuss with cardiovascular surgery. Problem Qualifiers (1) Diabetes mellitus, type II: Qualified Code: E11.9 - Type 2 diabetes mellitus without complication, without long-term current use of insulin (2) Hyperlipidemia: Qualified Code: E78.00 - Pure hypercholesterolemia Perico Castaneda MD R3 Dec 11, 2016 14:47
[2016-12-11] MEDS: DOCUSATE SODIUM 100 MG CAP PO SCH (20:54)
[2016-12-11] MEDS: SENNOSIDES 8.6 MG TAB PO SCH (20:54)
[2016-12-11] MEDS ORDERED: SODIUM CHLOR 0.9% 250 ML INJ 250 ML IV ONE (21:45)
[2016-12-12] VITALS (23 sets, daily range): BP systolic 101–131; BP diastolic 51–77; PULSE 79–102; RESP 12–22; TEMP 97.5–99; O2SAT 95–98
[2016-12-12] MEDS: INSULIN ASPART SUPPLEMENTAL SCALE SQ SCH ×6 (02:00→21:30)
[2016-12-12 04:57] LABS: APTT (PATIENT) 30.2 SEC (24.3-30.1)
[2016-12-12 05:02] LABS: AUTOMATED NEUTROPHIL # 10.3 TH/MM3 (1.8-7.7); BASOPHIL % 0.1 % (0.0-2.0); HEMO FLAGS DIFF FINAL; LYMPHOCYTE # 1.6 TH/MM3 (1.0-4.8); MEAN CELL VOLUME 85.7 FL (80.0-100.0); MEAN CORPUSCULAR HEMOGLOBIN 28.5 PG (27.0-34.0); MEAN CORPUSCULAR HGB CONC 33.2 % (32.0-36.0); NEUT % 74.9 % (16.0-70.0); PLATELET COUNT 203 TH/MM3 (150-450); RED BLOOD COUNT 4.09 MIL/MM3 (4.50-5.90); RED CELL DISTRIBUTION WIDTH 13.7 % (11.6-17.2); WHITE BLOOD COUNT 13.7 TH/MM3 (4.0-11.0)
[2016-12-12 05:17] LABS: BICARBONATE 29.4 MEQ/L (21.0-32.0); MAGNESIUM 1.7 MG/DL (1.5-2.5); POTASSIUM 4.3 MEQ/L (3.5-5.1)
[2016-12-12] MEDS: PANTOPRAZOLE SOD 40 MG DELAYED RELEASE TAB PO SCH (05:19)
[2016-12-12] MEDS: AMIODARONE 200 MG TAB PO SCH ×3 (05:19→22:24)
[2016-12-12] MEDS: METOCLOPRAMIDE HCL 10 MG/2 ML VIAL IV PUSH SCH ×4 (06:25→22:24)
[2016-12-12] MEDS: MORPHINE SULFATE 30 MG CONTROLLED RELEASE TAB PO SCH ×3 (07:00→18:23)
--- NOTE | 2016-12-12 07:50 | PD.CAR.PN ---
CVT Progress Note Subjective/Hospital Course: 71/ [facility] pain / HX CAD/ prior NH / admit with NSTEMI / s/p heart cath multi vessel disease. 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/ anxiety depression , HTN, afib, DM 12/07 pt on Heparin and imdur, statin, ASA pain free, tentatively scheduled for surgery on Friday 12/08 pt developed midsternal chest pain this am 03/31 now 08/31, received morphine and started on NTG gtt remains on NTG gtt scheduled for surgery on Tuesday / remains in Afib rate controlled, some occasional 2-3 sec pauses 12/09 no further chest pain, c/o feeling depressed agreeable for surgery in am on Heparin gtt OR in am 12/10 Procedure: Urgent CABG x 3 BISWAS to LAD - good SVG to OM2 - good SVG to D1 - good EVH 12/11 Doing well Incisional pain Needs pulmonary toiletry Transfer CIC 12/12 Doing well D/C CT today Objective: Vital Signs Date Time Temp Pulse Resp B/P Pulse Ox O2 Delivery O2 Flow Rate FiO2 12/12/16 06:00 84 12/12/16 05:00 90 12/12/16 04:00 95 12/12/16 03:10 99.0 83 20 109/60 98 12/12/16 03:00 88 12/12/16 02:00 98 12/12/16 01:00 83 12/12/16 00:00 79 12/12/16 00:00 98.0 91 20 106/72 97 12/11/16 23:33 20 12/11/16 23:00 98 12/11/16 21:56 92 12/11/16 21:56 98.7 93 20 109/77 93 12/11/16 20:00 98.7 116 16 128/90 95 12/11/16 20:00 116 12/11/16 19:59 92 Nasal Cannula 6.00 12/11/16 15:00 98.0 108 20 127/81 94 12/11/16 15:00 108 12/11/16 11:00 98.1 98 22 93/55 92 12/11/16 11:00 98 12/11/16 08:11 92 Nasal Cannula 5.00 Labs: Laboratory Tests Test 12/12/16 04:20 White Blood Count 13.7 TH/MM3 (4.0-11.0) Red Blood Count 4.09 MIL/MM3 (4.50-5.90) Hemoglobin 11.6 GM/DL (13.0-17.0) Hematocrit 35.0 % (39.0-51.0) Mean Corpuscular Volume 85.7 FL (80.0-100.0) Mean Corpuscular Hemoglobin 28.5 PG (27.0-34.0) Mean Corpuscular Hemoglobin 33.2 % Concent (32.0-36.0) Red Cell Distribution Width 13.7 % (11.6-17.2) Platelet Count 203 TH/MM3 (150-450) Mean Platelet Volume 10.0 FL (7.0-11.0) Neutrophils (%) (Auto) 74.9 % (16.0-70.0) Lymphocytes (%) (Auto) 12.0 % (9.0-44.0) Monocytes (%) (Auto) 13.0 % (0.0-8.0) Eosinophils (%) (Auto) 0.0 % (0.0-4.0) Basophils (%) (Auto) 0.1 % (0.0-2.0) Neutrophils # (Auto) 10.3 TH/MM3 (1.8-7.7) Lymphocytes # (Auto) 1.6 TH/MM3 (1.0-4.8) Monocytes # (Auto) 1.8 TH/MM3 (0-0.9) Eosinophils # (Auto) 0.0 TH/MM3 (0-0.4) Basophils # (Auto) 0.0 TH/MM3 (0-0.2) CBC Comment DIFF FINAL Differential Comment Activated Partial 30.2 SEC Thromboplast Time (24.3-30.1) Sodium Level 140 MEQ/L (136-145) Potassium Level 4.3 MEQ/L (3.5-5.1) Chloride Level 103 MEQ/L (98-107) Carbon Dioxide Level 29.4 MEQ/L (21.0-32.0) Anion Gap 8 MEQ/L (5-15) Blood Urea Nitrogen 16 MG/DL (7-18) Creatinine 0.90 MG/DL (0.60-1.30) Estimat Glomerular Filtration 84 ML/MIN (>89) Rate Random Glucose 90 MG/DL (74-106) Calcium Level 8.8 MG/DL (8.5-10.1) Magnesium Level 1.7 MG/DL (1.5-2.5) Result Diagram: 12/12/1641912/12/16419 (1) Multi-vessel coronary artery stenosis Plan: on ASA, statin , BB Heparin gtt , NTG gtt scheduled for surgery on Tuesday (2) Atrial fibrillation with RVR Plan: no afib some 2-3 sec pauses (3) NSTEMI (non-ST elevated myocardial infarction) (4) Hyperlipidemia Plan: on statin (5) Diabetes mellitus, type II Plan: HGB A1c 7.3 (6) History of seizure Plan: home meds resumed (7) Benign hypertension (8) Tobacco abuse Plan: tobacco cessation (9) anxiety / depression Plan: hx of mood disorder/ psych consult Problem Qualifiers (1) Hyperlipidemia: Qualified Code: E78.00 - Pure hypercholesterolemia (2) Diabetes mellitus, type II: Qualified Code: E11.9 - Type 2 diabetes mellitus without complication, without long-term current use of insulin Kieran Mazariegos MD Dec 12, 2016 07:50
[2016-12-12] MEDS: RESP: ALBUTEROL 2.5 MG/IPRATROPIUM 0.5 MG NEB (SCH) NEB ×3 (08:44→20:47)
[2016-12-12] MEDS: ESCITALOPRAM OXALATE 10 MG TAB PO SCH (08:46)
[2016-12-12] MEDS: ALUMINUM/MAGNESIUM/SIMETH 30 ML CUP PO SCH ×4 (08:46→22:23)
[2016-12-12] MEDS: MAGNESIUM HYDROXIDE SUSP 30 ML CUP PO SCH (08:46)
[2016-12-12] MEDS: PRAVASTATIN SOD 40 MG TAB PO SCH (08:46)
[2016-12-12] MEDS: POLYETHYLENE GLYCOL 17 GM PKG PO SCH (08:46)
[2016-12-12] MEDS: ASPIRIN 81 MG CHEW TAB PO SCH (08:46)
[2016-12-12] MEDS: DOCUSATE SODIUM 100 MG CAP PO SCH ×2 (08:46→22:23)
[2016-12-12] MEDS: MULTIVITAMINS/MINERALS THERAPEUTIC TAB PO SCH (08:46)
[2016-12-12] MEDS: METOPROLOL TARTRATE 25 MG TAB PO SCH ×2 (08:46→21:00)
[2016-12-12] MEDS: SODIUM CHLORIDE 0.9% FLUSH 10 ML FLUSH IV FLUSH SCH ×2 (08:47→21:00)
[2016-12-12] MEDS: MORPHINE SULFATE 4 MG/ML INJ IV PUSH PRN (08:54)
[2016-12-12] MEDS: levETIRAcetam 250 MG TAB PO SCH ×2 (10:00→22:24)
--- NOTE | 2016-12-12 10:40 | PD.CARD.PN ---
Subjective Subjective Remarks Has incisional chest pain, no anginal type pain Still with shortness of breath, somewhat baseline for him Objective Medications Current Medications Medications (Trade) Dose Ordered Sig/Romie Route Start Time Stop Time Status Last Admin (Heparin-D5W Inj) 250 ml @ 0 mls/hr TITRATE IV 12/06/16 11:00 12/10/16 03:48 (NS Flush) 2 ml BID IV FLUSH 12/06/16 21:00 12/12/16 08:47 (NS Flush) 2 ml UNSCH PRN IV FLUSH 12/06/16 11:45 (Aspirin Chew) 162 mg DAILY PO 12/07/16 09:00 12/12/16 08:46 (Mag-Al Plus Susp Liq) 30 ml QID PO 12/06/16 13:00 12/12/16 08:46 (Restoril) 15 mg HS PRN PO 12/06/16 21:00 12/12/16 01:18 (Keppra) 750 mg BID PO 12/06/16 21:00 12/12/16 10:00 (Pravachol) 40 mg DAILY PO 12/07/16 09:00 12/12/16 08:46 (Oramorph Sr) 30 mg Q12H PO 12/08/16 19:00 12/12/16 10:22 Escitalopram Oxalate 10 mg 10 mg DAILY PO 12/09/16 13:00 12/12/16 08:46 (Cleviprex Inj) 50 ml @ 2 mls/hr TITRATE IV 12/10/16 11:30 12/10/16 14:38 (Protonix) 40 mg DAILY@06 PO 12/11/16 06:00 12/12/16 05:19 (Reglan Inj) 10 mg ACHS IV PUSH 12/10/16 16:00 12/12/16 06:25 (Cordarone) 400 mg Q8HR PO 12/10/16 14:00 12/12/16 05:19 (fentaNYL INJ) 25 mcg Q1H PRN IV 12/10/16 11:30 12/10/16 18:40 (Zofran Inj) 4 mg Q6H PRN IV PUSH 12/10/16 11:30 (Apresoline Inj) 10 mg Q4H PRN IV 12/10/16 11:30 Metoprolol Tartrate 2.5 mg 2.5 mg Q1H PRN IV PUSH 12/10/16 11:30 Potassium Chloride 100 ml @ 50 mls/hr UNSCH PRN IV 12/10/16 11:30 12/10/16 17:31 Potassium Chloride 100 ml @ 50 mls/hr UNSCH PRN IV 12/10/16 11:30 12/10/16 14:37 Potassium Chloride 100 ml @ 50 mls/hr UNSCH PRN IV 12/10/16 11:30 Magnesium Sulfate 2 gm/Sodium Chloride 104 ml @ 100 mls/hr UNSCH PRN IV 12/10/16 11:30 Magnesium Sulfate 2 gm/Sodium Chloride 104 ml @ 50 mls/hr UNSCH PRN IV 12/10/16 11:30 12/11/16 06:40 (Calcium Chloride Inj/NS Inj) 110 ml @ 100 mls/hr UNSCH PRN IV 12/10/16 11:30 12/10/16 16:43 Calcium Chloride 0.5 gm 0.5 gm UNSCH PRN IV 12/10/16 11:30 Insulin Human Regular 100 units/ Sodium Chloride 100 ml @ 0 mls/hr TITRATE IV 12/10/16 11:30 (Lr 1000 ml Inj) 500 ml @ 500 mls/hr Q1H PRN IV 12/10/16 11:45 (Msir) 15 mg Q6H PRN PO 12/10/16 17:30 12/11/16 13:32 (Morphine Inj) 2 mg Q3H PRN IV PUSH 12/11/16 06:00 12/12/16 08:54 (Colace) 100 mg BID PO 12/11/16 21:00 12/12/16 08:46 (Theragran M Tab) 1 tab DAILY PO 12/11/16 10:00 12/12/16 08:46 (Milk Of Magnesia Liq) 30 ml DAILY PO 12/11/16 10:00 12/12/16 08:46 (Miralax) 17 gm DAILY PO 12/12/16 09:00 12/12/16 08:46 (Senokot) 8.6 mg HS PO 12/11/16 21:00 12/11/16 20:54 (Fleets Enema (Adult)) 133 ml UNSCH PRN RECTAL 12/11/16 09:00 (Lopressor) 12.5 mg BID PO 12/11/16 10:00 12/12/16 08:46 (NovoLOG SUPPLEMENTAL SCALE) 1 02,06,10,14,18,22 SQ 12/11/16 10:00 12/12/16 10:00 (D50w (Vial) Inj) 25 ml UNSCH PRN IV 12/11/16 09:00 (Glucagon Inj) 1 mg UNSCH PRN OTHER 12/11/16 09:00 (Pill Splitter) 1 ea UNSCH PRN OTHER 12/11/16 09:30 Vital Signs / I&O Vital Signs Date Time Temp Pulse Resp B/P Pulse Ox O2 Delivery O2 Flow Rate FiO2 12/12/16 09:00 94 12/12/16 08:45 97 Nasal Cannula 4.00 12/12/16 08:00 86 12/12/16 07:00 98.6 87 18 131/77 97 12/12/16 07:00 91 12/12/16 06:00 84 12/12/16 05:00 90 12/12/16 04:00 95 12/12/16 03:10 99.0 83 20 109/60 98 12/12/16 03:00 88 12/12/16 02:00 98 12/12/16 01:00 83 12/12/16 00:00 79 12/12/16 00:00 98.0 91 20 106/72 97 12/11/16 23:33 20 12/11/16 23:00 98 12/11/16 21:56 92 12/11/16 21:56 98.7 93 20 109/77 93 12/11/16 20:00 98.7 116 16 128/90 95 12/11/16 20:00 116 12/11/16 19:59 92 Nasal Cannula 6.00 12/11/16 15:00 98.0 108 20 127/81 94 12/11/16 15:00 108 12/11/16 11:00 98.1 98 22 93/55 92 12/11/16 11:00 98 I/O 12/11/16 12/11/16 12/11/16 12/12/16 12/12/16 12/12/16 07:00 15:00 23:00 07:00 15:00 23:00 Intake Total 1664 ml 1700 ml 300 ml Output Total 1245 ml 220 ml 300 ml Balance 419 ml 1480 ml 0 ml Intake Oral 1440 ml 1200 ml 200 ml IV Total 224 ml 500 ml 100 ml Output Urine Total 1065 ml 120 ml 300 ml Emesis 0 ml Chest Tube Drainage Total 180 ml 100 ml Bladder Scan Volume Amount 36 ml # Bowel Movements 0 0 0 Physical Exam GENERAL: NAD, AAOx3 SKIN: Dry HEAD: Atraumatic. Normocephalic. EYES: Pupils equal and round. No scleral icterus. No injection or drainage. ENT: No nasal bleeding or discharge. Mucous membranes pink and moist. NECK: Trachea midline. No JVD. CARDIOVASCULAR: Irregularly irregular RESPIRATORY: No accessory muscle use. Decreased breath sounds bilaterally GASTROINTESTINAL: Abdomen soft, non-tender, nondistended. Hepatic and splenic margins not palpable. MUSCULOSKELETAL: Extremities without clubbing, cyanosis, or edema. NEUROLOGICAL: No focal deficits Laboratory Laboratory Tests Test 12/12/16 04:20 White Blood Count 13.7 TH/MM3 Red Blood Count 4.09 MIL/MM3 Hemoglobin 11.6 GM/DL Hematocrit 35.0 % Mean Corpuscular Volume 85.7 FL Mean Corpuscular Hemoglobin 28.5 PG Mean Corpuscular Hemoglobin 33.2 % Concent Red Cell Distribution Width 13.7 % Platelet Count 203 TH/MM3 Mean Platelet Volume 10.0 FL Neutrophils (%) (Auto) 74.9 % Lymphocytes (%) (Auto) 12.0 % Monocytes (%) (Auto) 13.0 % Eosinophils (%) (Auto) 0.0 % Basophils (%) (Auto) 0.1 % Neutrophils # (Auto) 10.3 TH/MM3 Lymphocytes # (Auto) 1.6 TH/MM3 Monocytes # (Auto) 1.8 TH/MM3 Eosinophils # (Auto) 0.0 TH/MM3 Basophils # (Auto) 0.0 TH/MM3 CBC Comment DIFF FINAL Differential Comment Activated Partial 30.2 SEC Thromboplast Time Sodium Level 140 MEQ/L Potassium Level 4.3 MEQ/L Chloride Level 103 MEQ/L Carbon Dioxide Level 29.4 MEQ/L Anion Gap 8 MEQ/L Blood Urea Nitrogen 16 MG/DL Creatinine 0.90 MG/DL Estimat Glomerular Filtration 84 ML/MIN Rate Random Glucose 90 MG/DL Calcium Level 8.8 MG/DL Magnesium Level 1.7 MG/DL Assessment and Plan Problem List: (1) Multi-vessel coronary artery stenosis (2) Atrial fibrillation with RVR (3) NSTEMI (non-ST elevated myocardial infarction) (4) Hyperlipidemia (5) Diabetes mellitus, type II (6) History of seizure (7) Benign hypertension (8) Tobacco abuse (9) anxiety / depression Assessment and Plan 1) MVCAD s/p CABG POD#2 BISWAS to LAD SVG to OM2 SVG to D1 2) EF 35-40%, mild to mod MR pre-operatively 3) Not a great half-way anticoagulation candidate due to multiple falls 4) ASA/Statin/BB 5) Chest tubes to be removed today 6) Will plan to diurese gently today, repeat CXR tomorrow Problem Qualifiers (1) Hyperlipidemia: Qualified Code: E78.00 - Pure hypercholesterolemia (2) Diabetes mellitus, type II: Qualified Code: E11.9 - Type 2 diabetes mellitus without complication, without long-term current use of insulin Saw Chairez DO Dec 12, 2016 10:40
[2016-12-12] MEDS ORDERED: FUROSEMIDE 40 MG/4 ML VIAL IV PUSH ONE (10:45)
--- NOTE | 2016-12-12 11:41 | HHI.PR ---
Subjective Remarks Patient seen and examined this am. He reported feeling very tired this am. He states he has some pain in his lower abdomen that is slightly improved with pain medications. Chest tube remains in place. Nasal cannula in place, vitals are overall stable. Objective Vital Signs Date Time Temp Pulse Resp B/P Pulse Ox O2 Delivery O2 Flow Rate FiO2 12/12/16 09:00 94 12/12/16 08:45 97 Nasal Cannula 4.00 12/12/16 08:00 86 12/12/16 07:00 98.6 87 18 131/77 97 12/12/16 07:00 91 12/12/16 06:00 84 12/12/16 05:00 90 12/12/16 04:00 95 12/12/16 03:10 99.0 83 20 109/60 98 12/12/16 03:00 88 12/12/16 02:00 98 12/12/16 01:00 83 12/12/16 00:00 79 12/12/16 00:00 98.0 91 20 106/72 97 12/11/16 23:33 20 12/11/16 23:00 98 12/11/16 21:56 92 12/11/16 21:56 98.7 93 20 109/77 93 12/11/16 20:00 98.7 116 16 128/90 95 12/11/16 20:00 116 12/11/16 19:59 92 Nasal Cannula 6.00 12/11/16 15:00 98.0 108 20 127/81 94 12/11/16 15:00 108 I/O 12/11/16 12/11/16 12/11/16 12/12/16 12/12/16 12/12/16 07:00 15:00 23:00 07:00 15:00 23:00 Intake Total 1664 ml 1700 ml 300 ml Output Total 1245 ml 220 ml 300 ml Balance 419 ml 1480 ml 0 ml Intake Oral 1440 ml 1200 ml 200 ml IV Total 224 ml 500 ml 100 ml Output Urine Total 1065 ml 120 ml 300 ml Emesis 0 ml Chest Tube Drainage Total 180 ml 100 ml Bladder Scan Volume Amount 36 ml # Bowel Movements 0 0 0 Result Diagram: 12/12/16 0420 12/12/16 0420 Imaging Last Impressions Chest X-Ray 12/11/16 0500 Signed Impressions: Service Date/Time: Sunday, December 11, 2016 04:37 - CONCLUSION: 1. New consolidation within the right lower lobe. 2. No pneumothorax. Fernie Velázquez Jr., MD Lower Extremity Ultrasound 12/07/16 0000 Signed Impressions: Service Date/Time: Wednesday, December 07, 2016 10:46 - CONCLUSION: No evidence of deep venous thrombosis within the lower extremities. Eduardo Morocho MD Carotid Artery Ultrasound 12/07/16 0000 Signed Impressions: Service Date/Time: Wednesday, December 07, 2016 11:15 - CONCLUSION: Mild heterogeneous plaque seen bilaterally in the carotid bifurcations. No evidence of hemodynamically significant stenosis. Billy Oliva MD Other Results GENERAL: Laying in bed, tired, In NAD. SKIN: Warm and dry. CARDIOVASCULAR: Distant heart sounds. RRR. No murmurs. Wound dressing in place over surgery site. Anterior chest tube draining serosanguineous fluid. RESPIRATORY: Breath sounds equal bilaterally. No accessory muscle use. Diminished breath sounds at the bases. Some wheezes appreciated on anterior breath sounds. GASTROINTESTINAL: Abdomen soft, non-tender, nondistended. MUSCULOSKELETAL: No cyanosis, or edema. Left lower extremity incision is c/d/i. BACK: without obvious deformity. A/P Problem List: (1) Diabetes mellitus, type II ICD Code: E11.9 (2) Hyperlipidemia ICD Code: E78.5 (3) NSTEMI (non-ST elevated myocardial infarction) ICD Code: I21.4 (4) Tobacco abuse ICD Code: Z72.0 (5) Multi-vessel coronary artery stenosis ICD Code: I25.10 (6) Anxiety and depression ICD Code: F41.9 (7) CAD (coronary artery disease) ICD Code: I25.10 Assessment and Plan 71-year-old man with 1. Multivessel coronary artery stenosis: Status post left heart catheterization 12/06/16 with finding of Multivessel coronary artery disease with significant proximal LAD, ostial first diagonal, mid-second obtuse marginal; for which cardiothoracic surgery has been consulted. S/p CABG x3 12/10/16. Continue with statin and ASA. Metoprolol 12.5mg BID added. Continue oramorph with PRN IV morphine. Per ST surgery, plan today- Chest tube removed today, gentle diuresis , repeat CXR in the am. 2. Non-ST elevation [place]: Status post left heart catheterization 12/06/16 with finding of multivessel coronary artery disease stenosis. Appreciate input from cardiology 2-D echo with EF 35-%. Cont BB/ASA/statin, as above. Not a great candidate for long-term anticoagulation 2/2 multiple falls. 3. Atrial fibrillation rapid ventricular response: previously on cardizem drip. Rate now relatively well controlled with metoprolol. Cont PRN IV metoprolol for HR >100. 4. Diabetes type 2: Continue to Hold oral hypoglycemic agent, continue insulin sliding scale with fingerstick blood glucose monitoring. 5. Hyperlipidemia, hypertension, seizure disorder, diabetic neuropathy: Continue outpatient medications 6. Hypokalemia: resolved. Monitor daily BMP. Depressed mood: Currently on Lexapro as of 12/09/16 and consider psychiatry consultation if no improvement DVT prophylaxis: SCDs. Hold for chemical prophylaxis given recent CABG and CT placement. Discharge Planning D/C pending continued clinical improvement, likely in a few days to SNF. Problem Qualifiers (1) Diabetes mellitus, type II: Qualified Code: E11.9 - Type 2 diabetes mellitus without complication, without long-term current use of insulin (2) Hyperlipidemia: Qualified Code: E78.00 - Pure hypercholesterolemia Jessie Alcala MD R3 Dec 12, 2016 11:41 Jessie Alcala MD R3 Dec 12, 2016 11:41
[2016-12-12] MEDS: SENNOSIDES 8.6 MG TAB PO SCH (22:24)
[2016-12-13] VITALS (19 sets, daily range): BP systolic 91–118; BP diastolic 41–75; PULSE 89–116; RESP 18–20; TEMP 97.8–99.2; O2SAT 94–100
[2016-12-13] MEDS: INSULIN ASPART SUPPLEMENTAL SCALE SQ SCH ×5 (02:29→21:00)
[2016-12-13] MEDS: AMIODARONE 200 MG TAB PO SCH ×2 (06:33→14:39)
[2016-12-13] MEDS: MORPHINE SULFATE 30 MG CONTROLLED RELEASE TAB PO SCH ×2 (06:33→18:07)
[2016-12-13] MEDS: METOCLOPRAMIDE HCL 10 MG/2 ML VIAL IV PUSH SCH (06:33)
[2016-12-13] MEDS: PANTOPRAZOLE SOD 40 MG DELAYED RELEASE TAB PO SCH (06:33)
[2016-12-13 06:59] LABS: BASOPHIL # 0.1 TH/MM3 (0-0.2); BASOPHIL % 0.7 % (0.0-2.0); EOSINOPHIL % 0.1 % (0.0-4.0); HEMATOCRIT 34.2 % (39.0-51.0); HEMO FLAGS DIFF FINAL; LYMPH % 10.6 % (9.0-44.0); LYMPHOCYTE # 1.1 TH/MM3 (1.0-4.8); MEAN CELL VOLUME 85.2 FL (80.0-100.0); MEAN CORPUSCULAR HEMOGLOBIN 29.6 PG (27.0-34.0); MEAN CORPUSCULAR HGB CONC 34.7 % (32.0-36.0); MONO % 12.2 % (0.0-8.0); NEUT % 76.4 % (16.0-70.0); PLATELET COUNT 219 TH/MM3 (150-450); RED BLOOD COUNT 4.02 MIL/MM3 (4.50-5.90); RED CELL DISTRIBUTION WIDTH 13.9 % (11.6-17.2); WHITE BLOOD COUNT 10.4 TH/MM3 (4.0-11.0)
[2016-12-13 07:36] LABS: BICARBONATE 32.3 MEQ/L (21.0-32.0)
--- NOTE | 2016-12-13 08:10 | RADRPT ---
EXAM DATE/TIME: 12/13/2016 07:29 [facility] COMPARISON: CHEST SINGLE AP, December 11, 2016, 4:37. INDICATIONS : Cough and congestion. MEDICAL HISTORY : Diabetes mellitus type II. Hypercholesterolemia. CVA Seizure A-fib SURGICAL HISTORY : CABG. ENCOUNTER: Subsequent ACUITY: 4 - 6 days PAIN SCORE: 0/10 LOCATION: Bilateral chest FINDINGS: A single view of the chest demonstrates right basilar pleural-parenchymal density. Heart enlarged. Pr evious median sternotomy. Slight kink in the left subclavian catheter approximately may be at the ski n. Osseous structures are intact. CONCLUSION: Pleural-parenchymal density right lower lobe with slight volume loss could be atelectasis and/or cons olidation. Possible kink in left subclavian catheter may be at the skin. Riley Masterson MD on December 13, 2016 at 8:06 Board Certified Radiologist. This report was verified electronically.
[2016-12-13] MEDS: DOCUSATE SODIUM 100 MG CAP PO SCH ×2 (08:54→21:17)
[2016-12-13] MEDS: MULTIVITAMINS/MINERALS THERAPEUTIC TAB PO SCH (08:54)
[2016-12-13] MEDS: levETIRAcetam 250 MG TAB PO SCH ×2 (08:54→21:17)
[2016-12-13] MEDS: SODIUM CHLORIDE 0.9% FLUSH 10 ML FLUSH IV FLUSH SCH (08:55)
[2016-12-13] MEDS: MAGNESIUM HYDROXIDE SUSP 30 ML CUP PO SCH (08:55)
[2016-12-13] MEDS: ASPIRIN 81 MG CHEW TAB PO SCH (08:55)
[2016-12-13] MEDS: ESCITALOPRAM OXALATE 10 MG TAB PO SCH (08:55)
[2016-12-13] MEDS: ALUMINUM/MAGNESIUM/SIMETH 30 ML CUP PO SCH ×4 (08:55→21:16)
[2016-12-13] MEDS: METOPROLOL TARTRATE 25 MG TAB PO SCH ×2 (08:55→21:18)
[2016-12-13] MEDS: PRAVASTATIN SOD 40 MG TAB PO SCH (08:55)
[2016-12-13] MEDS: POLYETHYLENE GLYCOL 17 GM PKG PO SCH (09:00)
[2016-12-13] MEDS: MORPHINE SULFATE 15 MG TAB PO PRN (09:04)
[2016-12-13] MEDS: RESP: ALBUTEROL 2.5 MG/IPRATROPIUM 0.5 MG NEB (SCH) NEB ×2 (09:16→20:28)
--- NOTE | 2016-12-13 11:04 | HHI.PR ---
Subjective Remarks Follow up post cabg on 12/10. Patient seen and examined while sitting in chair. Patient appears weak and tired. He is complaining of constant dull chest pain and pressure to the incisional area, and states it has been on going since surgery. It is very hard for him to keep his eyes open this morning. Chest x ray this am shows pleural-parenchymal density right lower lobe with slight volume loss, could be atelectasis and/or consolidation, patient is currently on 4L NC and states he feels like he is breathing ok. Objective Vitals Vital Signs Date Time Temp Pulse Resp B/P Pulse Ox O2 Delivery O2 Flow Rate FiO2 12/13/16 09:16 95 Nasal Cannula 4.00 12/13/16 08:45 98.8 95 18 101/65 99 12/13/16 04:00 97.8 91 20 118/75 100 12/13/16 04:00 100 Nasal Cannula 4.00 12/13/16 00:00 99.2 98 20 97/51 95 12/13/16 00:00 96 Nasal Cannula 4.00 12/12/16 20:47 96 Nasal Cannula 4.00 12/12/16 20:00 98.5 97 22 101/64 95 12/12/16 18:00 102 12/12/16 17:00 82 12/12/16 16:00 96 12/12/16 15:00 95 12/12/16 15:00 97.5 96 12 123/68 96 12/12/16 14:00 94 12/12/16 13:00 98 12/12/16 12:00 95 12/12/16 11:22 18 12/12/16 11:00 100 12/12/16 11:00 98.2 93 18 105/51 97 I/O 12/12/16 12/12/16 12/12/16 12/13/16 12/13/16 12/13/16 07:00 15:00 23:00 07:00 15:00 23:00 Intake Total 300 ml 960 ml Output Total 300 ml 250 ml 450 ml Balance 0 ml 710 ml -450 ml Intake Oral 200 ml 960 ml IV Total 100 ml Output Urine Total 300 ml 250 ml 450 ml Emesis 0 ml # Voids 4 # Bowel Movements 0 1 Result Diagram: 12/13/16 0630 12/13/16 0630 Imaging Last Impressions Chest X-Ray 12/13/16 0700 Signed Impressions: Service Date/Time: Tuesday, December 13, 2016 07:29 - CONCLUSION: Pleural-parenchymal density right lower lobe with slight volume loss could be atelectasis and/or consolidation. Possible kink in left subclavian catheter may be at the skin. Riley Masterson MD Lower Extremity Ultrasound 12/07/16 0000 Signed Impressions: Service Date/Time: Wednesday, December 07, 2016 10:46 - CONCLUSION: No evidence of deep venous thrombosis within the lower extremities. Eduardo Morocho MD Carotid Artery Ultrasound 12/07/16 0000 Signed Impressions: Service Date/Time: Wednesday, December 07, 2016 11:15 - CONCLUSION: Mild heterogeneous plaque seen bilaterally in the carotid bifurcations. No evidence of hemodynamically significant stenosis. Billy Oliva MD Objective Remarks GENERAL: Sitting in chair, appears tired SKIN: Warm and dry. No rash EYES: No scleral icterus. No injection or drainage. CARDIOVASCULAR: Distant heart sounds. RRR. No murmurs. Wound vac dressing in place over surgery site. RESPIRATORY: Breath sounds equal bilaterally. No accessory muscle use. Diminished breath sounds at the bases. No wheezes GASTROINTESTINAL: Abdomen soft, non-tender, nondistended. MUSCULOSKELETAL: No cyanosis, or edema. No calf tenderness Medications and IVs Current Medications Medications (Trade) Dose Ordered Sig/Romie Route Start Time Stop Time Status Last Admin (NS Flush) 2 ml BID IV FLUSH 12/06/16 21:00 12/13/16 08:55 (NS Flush) 2 ml UNSCH PRN IV FLUSH 12/06/16 11:45 (Aspirin Chew) 162 mg DAILY PO 12/07/16 09:00 12/13/16 08:55 (Mag-Al Plus Susp Liq) 30 ml QID PO 12/06/16 13:00 12/13/16 08:55 (Restoril) 15 mg HS PRN PO 12/06/16 21:00 12/12/16 01:18 (Keppra) 750 mg BID PO 12/06/16 21:00 12/13/16 08:54 (Pravachol) 40 mg DAILY PO 12/07/16 09:00 12/13/16 08:55 (Oramorph Sr) 30 mg Q12H PO 12/08/16 19:00 12/13/16 06:33 (Lexapro) 10 mg DAILY PO 12/09/16 13:00 12/13/16 08:55 (Protonix) 40 mg DAILY@06 PO 12/11/16 06:00 12/13/16 06:33 (Cordarone) 400 mg Q8HR PO 12/10/16 14:00 12/13/16 06:33 (Zofran Inj) 4 mg Q6H PRN IV PUSH 12/10/16 11:30 (Apresoline Inj) 10 mg Q4H PRN IV 12/10/16 11:30 (Msir) 15 mg Q6H PRN PO 12/10/16 17:30 12/13/16 09:04 (Colace) 100 mg BID PO 12/11/16 21:00 12/13/16 08:54 (Theragran M Tab) 1 tab DAILY PO 12/11/16 10:00 12/13/16 08:54 (Milk Of Magnesia Liq) 30 ml DAILY PO 12/11/16 10:00 12/13/16 08:55 (Miralax) 17 gm DAILY PO 12/12/16 09:00 12/12/16 08:46 (Senokot) 8.6 mg HS PO 12/11/16 21:00 12/12/16 22:24 (Fleets Enema (Adult)) 133 ml UNSCH PRN RECTAL 12/11/16 09:00 (Lopressor) 12.5 mg BID PO 12/11/16 10:00 12/13/16 08:55 (D50w (Vial) Inj) 25 ml UNSCH PRN IV 12/11/16 09:00 (Glucagon Inj) 1 mg UNSCH PRN OTHER 12/11/16 09:00 (Pill Splitter) 1 ea UNSCH PRN OTHER 12/11/16 09:30 (NovoLOG SUPPLEMENTAL SCALE) 1 ACHS SQ 12/13/16 11:00 A/P Problem List: (1) Multi-vessel coronary artery stenosis ICD Code: I25.10 Status: Acute (2) NSTEMI (non-ST elevated myocardial infarction) ICD Code: I21.4 Status: Acute (3) Atrial fibrillation with RVR ICD Code: I48.91 Status: Acute (4) Diabetes mellitus, type II ICD Code: E11.9 Status: Acute (5) Benign hypertension ICD Code: I10 Status: Acute (6) Hyperlipidemia ICD Code: E78.5 Status: Acute (7) Hypokalemia ICD Code: E87.6 Status: Resolved (8) History of seizure ICD Code: Z87.898 Status: Acute (9) Anxiety and depression ICD Code: F41.9 Status: Acute Assessment and Plan 71 y/o with a history of afib, dm and HLD, s/p CABG on 12/10 Multivessel coronary artery stenosis: Status post left heart catheterization with finding of Multivessel coronary artery disease with significant proximal LAD, ostial first diagonal, mid-second obtuse marginal; for which cardiothoracic surgery has been consulted. S/p CABG x3 12/10/16. -Continue with statin, ASA and Metoprolol 12.5mg BID -Pain management with PO Oramorph with PRN IV morphine. -Chest xray this AM shows pleural-parenchymal density right lower lobe with slight volume loss, could be atelectasis and/or consolidation -Incentive spirometer ordered every hour Non-ST elevation [place]: Status post left heart catheterization 12/06/16 with finding of multivessel coronary artery disease stenosis. Appreciate input from cardiology 2-D echo with EF 35-%. Cont BB/ASA/statin, as above. Not a great candidate for long-term anticoagulation 2/2 multiple falls. Atrial fibrillation rapid ventricular response, controlled -Cont to monitor telemetry -Cont Metoprolol, and Cont PRN IV metoprolol for HR >100. Diabetes type 2 -Continue to Hold oral hypoglycemic agent -Accu checks with SSI Other chronic medical conditions: Hyperlipidemia, hypertension, seizure disorder , diabetic neuropathy: Continue outpatient medications Hypokalemia: resolved. Depressed mood -Currently on Lexapro as of 12/09/16 and consider psychiatry consultation if no improvement Tobacco abuse, patient smokes 2-3PPD -Encouraged to quit -Tobacco counseling DVT prophylaxis: SCDs. Hold for chemical prophylaxis given recent CABG and CT placement. Written by PEDRO LUIS Gupta acting as scribe for Dr. Thomason] on 12/13/16 at 10 :42. This note was transcribed by scribe [PEDRO LUIS Gutpa]. I, Dr. Shantal Quintero personally performed the history, physical exam, and medical decision making; and confirmed the accuracy of the information in the transcribed note. Authenticated by Dr. Shantal Quintero on 12/13/16 at 11:19. Discharge Planning Will likely need SNF once stable from cardiology standpoint Problem Qualifiers (1) Diabetes mellitus, type II: Qualified Code: E11.9 - Type 2 diabetes mellitus without complication, without long-term current use of insulin (2) Hyperlipidemia: Qualified Code: E78.00 - Pure hypercholesterolemia Mindi Funk Dec 13, 2016 11:04 Shantal Quintero MD Dec 13, 2016 14:20
--- NOTE | 2016-12-13 11:31 | PD.CARD.PN ---
Subjective Subjective Remarks Still have incisional chest pain, reproducible with deep breathing and palpation Objective Medications Current Medications Medications (Trade) Dose Ordered Sig/Romie Route Start Time Stop Time Status Last Admin (NS Flush) 2 ml BID IV FLUSH 12/06/16 21:00 12/13/16 08:55 (NS Flush) 2 ml UNSCH PRN IV FLUSH 12/06/16 11:45 (Aspirin Chew) 162 mg DAILY PO 12/07/16 09:00 12/13/16 08:55 (Mag-Al Plus Susp Liq) 30 ml QID PO 12/06/16 13:00 12/13/16 08:55 (Restoril) 15 mg HS PRN PO 12/06/16 21:00 12/12/16 01:18 (Keppra) 750 mg BID PO 12/06/16 21:00 12/13/16 08:54 (Pravachol) 40 mg DAILY PO 12/07/16 09:00 12/13/16 08:55 (Oramorph Sr) 30 mg Q12H PO 12/08/16 19:00 12/13/16 06:33 (Lexapro) 10 mg DAILY PO 12/09/16 13:00 12/13/16 08:55 (Protonix) 40 mg DAILY@06 PO 12/11/16 06:00 12/13/16 06:33 (Cordarone) 400 mg Q8HR PO 12/10/16 14:00 12/13/16 06:33 (Zofran Inj) 4 mg Q6H PRN IV PUSH 12/10/16 11:30 (Apresoline Inj) 10 mg Q4H PRN IV 12/10/16 11:30 (Msir) 15 mg Q6H PRN PO 12/10/16 17:30 12/13/16 09:04 (Colace) 100 mg BID PO 12/11/16 21:00 12/13/16 08:54 (Theragran M Tab) 1 tab DAILY PO 12/11/16 10:00 12/13/16 08:54 (Milk Of Magnesia Liq) 30 ml DAILY PO 12/11/16 10:00 12/13/16 08:55 (Miralax) 17 gm DAILY PO 12/12/16 09:00 12/12/16 08:46 (Senokot) 8.6 mg HS PO 12/11/16 21:00 12/12/16 22:24 (Fleets Enema (Adult)) 133 ml UNSCH PRN RECTAL 12/11/16 09:00 (Lopressor) 12.5 mg BID PO 12/11/16 10:00 12/13/16 08:55 (D50w (Vial) Inj) 25 ml UNSCH PRN IV 12/11/16 09:00 (Glucagon Inj) 1 mg UNSCH PRN OTHER 12/11/16 09:00 (Pill Splitter) 1 ea UNSCH PRN OTHER 12/11/16 09:30 (NovoLOG SUPPLEMENTAL SCALE) 1 ACHS SQ 12/13/16 11:00 Vital Signs / I&O Vital Signs Date Time Temp Pulse Resp B/P Pulse Ox O2 Delivery O2 Flow Rate FiO2 12/13/16 09:16 95 Nasal Cannula 4.00 12/13/16 08:45 98.8 95 18 101/65 99 12/13/16 04:00 97.8 91 20 118/75 100 12/13/16 04:00 100 Nasal Cannula 4.00 12/13/16 00:00 99.2 98 20 97/51 95 12/13/16 00:00 96 Nasal Cannula 4.00 12/12/16 20:47 96 Nasal Cannula 4.00 12/12/16 20:00 98.5 97 22 101/64 95 12/12/16 18:00 102 12/12/16 17:00 82 12/12/16 16:00 96 12/12/16 15:00 95 12/12/16 15:00 97.5 96 12 123/68 96 12/12/16 14:00 94 12/12/16 13:00 98 12/12/16 12:00 95 I/O 12/12/16 12/12/16 12/12/16 12/13/16 12/13/16 12/13/16 07:00 15:00 23:00 07:00 15:00 23:00 Intake Total 300 ml 960 ml Output Total 300 ml 250 ml 450 ml Balance 0 ml 710 ml -450 ml Intake Oral 200 ml 960 ml IV Total 100 ml Output Urine Total 300 ml 250 ml 450 ml Emesis 0 ml # Voids 4 # Bowel Movements 0 1 Physical Exam GENERAL: NAD, AAOx3 SKIN: Dry HEAD: Atraumatic. Normocephalic. EYES: Pupils equal and round. No scleral icterus. No injection or drainage. ENT: No nasal bleeding or discharge. Mucous membranes pink and moist. NECK: Trachea midline. No JVD. CARDIOVASCULAR: Irregularly irregular RESPIRATORY: No accessory muscle use. Decreased breath sounds bilaterally GASTROINTESTINAL: Abdomen soft, non-tender, nondistended. Hepatic and splenic margins not palpable. MUSCULOSKELETAL: Extremities without clubbing, cyanosis, or edema. NEUROLOGICAL: No focal deficits Laboratory Laboratory Tests Test 12/13/16 06:30 White Blood Count 10.4 TH/MM3 Red Blood Count 4.02 MIL/MM3 Hemoglobin 11.9 GM/DL Hematocrit 34.2 % Mean Corpuscular Volume 85.2 FL Mean Corpuscular Hemoglobin 29.6 PG Mean Corpuscular Hemoglobin 34.7 % Concent Red Cell Distribution Width 13.9 % Platelet Count 219 TH/MM3 Mean Platelet Volume 9.8 FL Neutrophils (%) (Auto) 76.4 % Lymphocytes (%) (Auto) 10.6 % Monocytes (%) (Auto) 12.2 % Eosinophils (%) (Auto) 0.1 % Basophils (%) (Auto) 0.7 % Neutrophils # (Auto) 8.0 TH/MM3 Lymphocytes # (Auto) 1.1 TH/MM3 Monocytes # (Auto) 1.3 TH/MM3 Eosinophils # (Auto) 0.0 TH/MM3 Basophils # (Auto) 0.1 TH/MM3 CBC Comment DIFF FINAL Differential Comment Sodium Level 139 MEQ/L Potassium Level 4.0 MEQ/L Chloride Level 97 MEQ/L Carbon Dioxide Level 32.3 MEQ/L Anion Gap 10 MEQ/L Blood Urea Nitrogen 16 MG/DL Creatinine 0.91 MG/DL Estimat Glomerular Filtration 83 ML/MIN Rate Random Glucose 133 MG/DL Calcium Level 8.5 MG/DL Assessment and Plan Problem List: (1) Multi-vessel coronary artery stenosis (2) Atrial fibrillation with RVR (3) NSTEMI (non-ST elevated myocardial infarction) (4) Hyperlipidemia (5) Diabetes mellitus, type II (6) History of seizure (7) Benign hypertension (8) Tobacco abuse (9) anxiety / depression Assessment and Plan 1) MVCAD s/p CABG POD#3 BISWAS to LAD SVG to OM2 SVG to D1 2) EF 35-40%, mild to mod MR pre-operatively 3) Not a great terminal carman anticoagulation candidate due to multiple falls 4) ASA/Statin/BB 5) Pain management, but seems lethargic with multiple pain meds 6) IS hourly Problem Qualifiers (1) Hyperlipidemia: Qualified Code: E78.00 - Pure hypercholesterolemia (2) Diabetes mellitus, type II: Qualified Code: E11.9 - Type 2 diabetes mellitus without complication, without long-term current use of insulin Saw Chairez DO Dec 13, 2016 11:31
--- NOTE | 2016-12-13 16:30 | PD.CAR.PN ---
CVT Progress Note Subjective/Hospital Course: 71/ male / [facility] admitted for chest pain / HX CAD/ prior [place] / admit with NSTEMI / s/p heart cath multi vessel disease. 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/ anxiety depression , HTN, afib, DM 12/07 pt on Heparin and imdur, statin, ASA pain free, tentatively scheduled for surgery on Friday 12/08 pt developed midsternal chest pain this am 03/31 now 08/31, received morphine and started on NTG gtt remains on NTG gtt scheduled for surgery on Tuesday / remains in Afib rate controlled, some occasional 2-3 sec pauses 12/09 no further chest pain, c/o feeling depressed agreeable for surgery in am on Heparin gtt OR in am 12/10 Procedure: Urgent CABG x 3 BISWAS to LAD - good SVG to OM2 - good SVG to D1 - good EVH 12/11 Doing well Incisional pain Needs pulmonary toiletry Transfer [facility]IC 12/12 Doing well D/C CT today 12/13 on nasal cannula/ poor cough effort congested / CXR noted right lower lobe infiltrate continue nebs/ ezpap/ acapella will need allan when tolerates, Objective: Vital Signs Date Time Temp Pulse Resp B/P Pulse Ox O2 Delivery O2 Flow Rate FiO2 12/13/16 14:01 106 12/13/16 13:00 105 12/13/16 12:00 115 12/13/16 11:45 98.3 116 18 96/41 95 12/13/16 11:00 97 12/13/16 10:00 113 12/13/16 09:16 95 Nasal Cannula 4.00 12/13/16 09:00 114 12/13/16 08:45 98.8 95 18 101/65 99 12/13/16 08:00 97 12/13/16 07:00 90 12/13/16 04:00 97.8 91 20 118/75 100 12/13/16 04:00 100 Nasal Cannula 4.00 12/13/16 00:00 99.2 98 20 97/51 95 12/13/16 00:00 96 Nasal Cannula 4.00 12/12/16 20:47 96 Nasal Cannula 4.00 12/12/16 20:00 98.5 97 22 101/64 95 12/12/16 18:00 102 12/12/16 17:00 82 Labs: Laboratory Tests Test 12/13/16 06:30 White Blood Count 10.4 TH/MM3 (4.0-11.0) Red Blood Count 4.02 MIL/MM3 (4.50-5.90) Hemoglobin 11.9 GM/DL (13.0-17.0) Hematocrit 34.2 % (39.0-51.0) Mean Corpuscular Volume 85.2 FL (80.0-100.0) Mean Corpuscular Hemoglobin 29.6 PG (27.0-34.0) Mean Corpuscular Hemoglobin 34.7 % Concent (32.0-36.0) Red Cell Distribution Width 13.9 % (11.6-17.2) Platelet Count 219 TH/MM3 (150-450) Mean Platelet Volume 9.8 FL (7.0-11.0) Neutrophils (%) (Auto) 76.4 % (16.0-70.0) Lymphocytes (%) (Auto) 10.6 % (9.0-44.0) Monocytes (%) (Auto) 12.2 % (0.0-8.0) Eosinophils (%) (Auto) 0.1 % (0.0-4.0) Basophils (%) (Auto) 0.7 % (0.0-2.0) Neutrophils # (Auto) 8.0 TH/MM3 (1.8-7.7) Lymphocytes # (Auto) 1.1 TH/MM3 (1.0-4.8) Monocytes # (Auto) 1.3 TH/MM3 (0-0.9) Eosinophils # (Auto) 0.0 TH/MM3 (0-0.4) Basophils # (Auto) 0.1 TH/MM3 (0-0.2) CBC Comment DIFF FINAL Differential Comment Sodium Level 139 MEQ/L (136-145) Potassium Level 4.0 MEQ/L (3.5-5.1) Chloride Level 97 MEQ/L (98-107) Carbon Dioxide Level 32.3 MEQ/L (21.0-32.0) Anion Gap 10 MEQ/L (5-15) Blood Urea Nitrogen 16 MG/DL (7-18) Creatinine 0.91 MG/DL (0.60-1.30) Estimat Glomerular Filtration 83 ML/MIN (>89) Rate Random Glucose 133 MG/DL (74-106) Calcium Level 8.5 MG/DL (8.5-10.1) Result Diagram: 12/13/1662912/13/16629 Telemetry: sinus tach (1) Multi-vessel coronary artery stenosis Plan: on ASA, BB , statin increase pulm toileting OOB/ consult OT (2) Atrial fibrillation with RVR Plan: no afib some 2-3 sec pauses ( preop) (3) NSTEMI (non-ST elevated myocardial infarction) (4) Hyperlipidemia Plan: on statin (5) Diabetes mellitus, type II Plan: HGB A1c 7.3 (6) History of seizure Plan: home meds resumed (7) Benign hypertension (8) Tobacco abuse Plan: tobacco cessation (9) anxiety / depression Plan: hx of mood disorder/ psych consult Problem Qualifiers (1) Hyperlipidemia: Qualified Code: E78.00 - Pure hypercholesterolemia (2) Diabetes mellitus, type II: Qualified Code: E11.9 - Type 2 diabetes mellitus without complication, without long-term current use of insulin Shamika Stallworth Dec 13, 2016 16:30
[2016-12-13] MEDS ORDERED: POTASSIUM CHLORIDE 20 MEQ CONTROLLED RELEASE TAB PO ONE (17:00)
[2016-12-13] MEDS ORDERED: FUROSEMIDE 40 MG/4 ML VIAL IV PUSH ONE (17:00)
[2016-12-13] MEDS: SENNOSIDES 8.6 MG TAB PO SCH (21:19)
[2016-12-14] VITALS (12 sets, daily range): BP systolic 85–111; BP diastolic 55–77; PULSE 69–90; RESP 16–19; TEMP 97.9–98.4; O2SAT 93–100
[2016-12-14] MEDS: PANTOPRAZOLE SOD 40 MG DELAYED RELEASE TAB PO SCH (04:47)
[2016-12-14] MEDS: SODIUM CHLORIDE 0.9% FLUSH 10 ML FLUSH IV FLUSH SCH ×3 (04:48→20:45)
[2016-12-14] MEDS: AMIODARONE 200 MG TAB PO SCH (04:48)
[2016-12-14] MEDS: MORPHINE SULFATE 30 MG CONTROLLED RELEASE TAB PO SCH (04:55)
[2016-12-14] MEDS: INSULIN ASPART SUPPLEMENTAL SCALE SQ SCH ×4 (07:00→20:49)
[2016-12-14 07:05] LABS: HEMATOCRIT 34.2 % (39.0-51.0); MEAN CELL VOLUME 84.6 FL (80.0-100.0); MEAN CORPUSCULAR HEMOGLOBIN 29.8 PG (27.0-34.0); MEAN CORPUSCULAR HGB CONC 35.2 % (32.0-36.0); PLATELET COUNT 238 TH/MM3 (150-450); RED BLOOD COUNT 4.04 MIL/MM3 (4.50-5.90); RED CELL DISTRIBUTION WIDTH 13.6 % (11.6-17.2); REVIEW FLAG FINAL; WHITE BLOOD COUNT 9.1 TH/MM3 (4.0-11.0)
[2016-12-14 07:44] LABS: BICARBONATE 34.8 MEQ/L (21.0-32.0); POTASSIUM 3.1 MEQ/L (3.5-5.1)
[2016-12-14] MEDS: RESP: ALBUTEROL 2.5 MG/IPRATROPIUM 0.5 MG NEB (SCH) NEB ×3 (08:09→21:09)
[2016-12-14] MEDS ORDERED: POTASSIUM CHLORIDE 10 MEQ CONTROLLED RELEASE TAB PO ONE (08:30)
[2016-12-14] MEDS: POTASSIUM CHLOR 20 MEQ PREMIX 100 ML IV SCH ×2 (08:58→13:05)
[2016-12-14] MEDS: POLYETHYLENE GLYCOL 17 GM PKG PO SCH (09:09)
[2016-12-14] MEDS: MAGNESIUM HYDROXIDE SUSP 30 ML CUP PO SCH (09:09)
[2016-12-14] MEDS: MULTIVITAMINS/MINERALS THERAPEUTIC TAB PO SCH (09:10)
[2016-12-14] MEDS: levETIRAcetam 250 MG TAB PO SCH ×2 (09:10→20:45)
[2016-12-14] MEDS: METOPROLOL TARTRATE 25 MG TAB PO SCH (09:10)
[2016-12-14] MEDS: ALUMINUM/MAGNESIUM/SIMETH 30 ML CUP PO SCH ×4 (09:10→20:46)
[2016-12-14] MEDS: DOCUSATE SODIUM 100 MG CAP PO SCH ×2 (09:11→20:25)
[2016-12-14] MEDS: ESCITALOPRAM OXALATE 10 MG TAB PO SCH (09:11)
[2016-12-14] MEDS: PRAVASTATIN SOD 40 MG TAB PO SCH (09:11)
[2016-12-14] MEDS: ASPIRIN 81 MG CHEW TAB PO SCH (09:11)
--- NOTE | 2016-12-14 10:25 | PD.CAR.PN ---
CVT Progress Note Subjective/Hospital Course: 71/ male / [facility] admitted [facility] chest pain / HX CAD/ prior [place] / admit with NSTEMI / s/p heart cath multi vessel disease. 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/ anxiety depression , HTN, afib, DM 12/07 pt on Heparin and imdur, statin, ASA pain free, tentatively scheduled for surgery on Friday 12/08 pt developed midsternal chest pain this am 03/31 now 08/31, received morphine and started on NTG gtt remains on NTG gtt scheduled for surgery on Tuesday / remains in Afib rate controlled, some occasional 2-3 sec pauses 12/09 no further chest pain, c/o feeling depressed agreeable for surgery in am on Heparin gtt OR in am 12/10 Procedure: Urgent CABG x 3 BISWAS to LAD - good SVG to OM2 - good SVG to D1 - good EVH 12/11 Doing well Incisional pain Needs pulmonary toiletry Transfer [facility]IC 12/12 Doing well D/C CT today 12/13 on nasal cannula/ poor cough effort congested / CXR noted right lower lobe infiltrate continue nebs/ ezpap/ acapella will need antony when tolerates, 12/14 pt remains in Afib rate controlled / poor candidate for NOAC or coumadin 2/2 high risk for falls pt c/o of pain , however sleepy , but improved from yesterday aggressive pulm toileting, ambulate, IS hold on further diuresis , BP labile , hold on ANTONY decrease amiodarone dose will need rehab placement Objective: Vital Signs Date Time Temp Pulse Resp B/P Pulse Ox O2 Delivery O2 Flow Rate FiO2 12/14/16 07:42 93 Nasal Cannula 2.00 12/14/16 03:00 97.9 78 18 85/58 93 12/14/16 03:00 78 12/14/16 03:00 93 Nasal Cannula 2.00 12/13/16 23:00 96 12/13/16 23:00 98.5 96 18 91/62 94 12/13/16 23:00 96 Nasal Cannula 2.00 12/13/16 20:41 94 Nasal Cannula 2.00 12/13/16 19:00 94 Nasal Cannula 2.00 12/13/16 19:00 89 12/13/16 19:00 98.3 89 18 105/60 94 12/13/16 18:05 91 12/13/16 17:01 92 12/13/16 15:45 98.8 89 18 114/66 96 12/13/16 15:00 91 Nasal Cannula 2.00 12/13/16 14:01 106 12/13/16 13:00 105 12/13/16 12:00 115 12/13/16 11:45 98.3 116 18 96/41 95 12/13/16 11:00 97 Labs: Laboratory Tests Test 12/14/16 05:21 White Blood Count 9.1 TH/MM3 (4.0-11.0) Red Blood Count 4.04 MIL/MM3 (4.50-5.90) Hemoglobin 12.0 GM/DL (13.0-17.0) Hematocrit 34.2 % (39.0-51.0) Mean Corpuscular Volume 84.6 FL (80.0-100.0) Mean Corpuscular Hemoglobin 29.8 PG (27.0-34.0) Mean Corpuscular Hemoglobin 35.2 % Concent (32.0-36.0) Red Cell Distribution Width 13.6 % (11.6-17.2) Platelet Count 238 TH/MM3 (150-450) Mean Platelet Volume 9.9 FL (7.0-11.0) Sodium Level 137 MEQ/L (136-145) Potassium Level 3.1 MEQ/L (3.5-5.1) Chloride Level 96 MEQ/L (98-107) Carbon Dioxide Level 34.8 MEQ/L (21.0-32.0) Anion Gap 6 MEQ/L (5-15) Blood Urea Nitrogen 16 MG/DL (7-18) Creatinine 0.83 MG/DL (0.60-1.30) Estimat Glomerular Filtration 92 ML/MIN (>89) Rate Random Glucose 61 MG/DL (74-106) Calcium Level 8.3 MG/DL (8.5-10.1) Magnesium Level 2.0 MG/DL (1.5-2.5) Result Diagram: 12/14/1652012/14/16520 Telemetry: afib (1) Multi-vessel coronary artery stenosis Plan: on ASA, BB , statin increase pulm toileting OOB/ consult OT (2) Atrial fibrillation with RVR Plan: afib/ rate controlled, NO NOAC or coumadin / high risk for falls HR dropped into high 30"as and 40 amiodarone and BB DC, BP stable , will monitor (3) NSTEMI (non-ST elevated myocardial infarction) (4) Hyperlipidemia Plan: on statin (5) Diabetes mellitus, type II Plan: HGB A1c 7.3/ on sliding scale / blood sugar labile / no oral meds at this time (6) History of seizure Plan: home meds resumed (7) Benign hypertension (8) Tobacco abuse Plan: tobacco cessation (9) anxiety / depression Plan: hx of mood disorder/ psych/ low dose lexapro Problem Qualifiers (1) Hyperlipidemia: Qualified Code: E78.00 - Pure hypercholesterolemia (2) Diabetes mellitus, type II: Qualified Code: E11.9 - Type 2 diabetes mellitus without complication, without long-term current use of insulin Shamika Stallworth Dec 14, 2016 10:25
[2016-12-14] MEDS ORDERED: DOPamine INJ PREMIX 500 ML ONE (10:52)
[2016-12-14] MEDS ORDERED: CALCIUM CHLORIDE 10% SOLN 1 GRAM/10 ML SYR ONE (10:52)
--- NOTE | 2016-12-14 10:58 | PD.CARD.PN ---
Subjective Subjective Remarks Feels pain all-over, baseline shortness of breath Objective Medications Current Medications Medications (Trade) Dose Ordered Sig/Romie Route Start Time Stop Time Status Last Admin (NS Flush) 2 ml BID IV FLUSH 12/06/16 21:00 12/14/16 09:09 (NS Flush) 2 ml UNSCH PRN IV FLUSH 12/06/16 11:45 (Aspirin Chew) 162 mg DAILY PO 12/07/16 09:00 12/14/16 09:11 (Mag-Al Plus Susp Liq) 30 ml QID PO 12/06/16 13:00 12/14/16 09:10 (Restoril) 15 mg HS PRN PO 12/06/16 21:00 12/12/16 01:18 (Keppra) 750 mg BID PO 12/06/16 21:00 12/14/16 09:10 (Pravachol) 40 mg DAILY PO 12/07/16 09:00 12/14/16 09:11 (Oramorph Sr) 30 mg Q12H PO 12/08/16 19:00 12/14/16 04:55 (Lexapro) 10 mg DAILY PO 12/09/16 13:00 12/14/16 09:11 (Protonix) 40 mg DAILY@06 PO 12/11/16 06:00 12/14/16 04:47 (Zofran Inj) 4 mg Q6H PRN IV PUSH 12/10/16 11:30 (Apresoline Inj) 10 mg Q4H PRN IV 12/10/16 11:30 (Msir) 15 mg Q6H PRN PO 12/10/16 17:30 12/13/16 09:04 (Colace) 100 mg BID PO 12/11/16 21:00 12/14/16 09:11 (Theragran M Tab) 1 tab DAILY PO 12/11/16 10:00 12/14/16 09:10 (Milk Of Magnesia Liq) 30 ml DAILY PO 12/11/16 10:00 12/14/16 09:09 (Miralax) 17 gm DAILY PO 12/12/16 09:00 12/14/16 09:09 (Senokot) 8.6 mg HS PO 12/11/16 21:00 12/13/16 21:19 (Fleets Enema (Adult)) 133 ml UNSCH PRN RECTAL 12/11/16 09:00 (Lopressor) 12.5 mg BID PO 12/11/16 10:00 Hold 12/14/16 09:10 (D50w (Vial) Inj) 25 ml UNSCH PRN IV 12/11/16 09:00 (Glucagon Inj) 1 mg UNSCH PRN OTHER 12/11/16 09:00 (Pill Splitter) 1 ea UNSCH PRN OTHER 12/11/16 09:30 (NovoLOG SUPPLEMENTAL SCALE) 1 ACHS SQ 12/13/16 11:00 12/13/16 21:00 Amiodarone HCl 200 mg 200 mg Q12HR PO 12/14/16 21:00 Future Hold (KCl 20 Meq Premix Inj) 100 ml @ 50 mls/hr Q2H IV 12/14/16 09:00 12/14/16 12:59 12/14/16 08:58 Vital Signs / I&O Vital Signs Date Time Temp Pulse Resp B/P Pulse Ox O2 Delivery O2 Flow Rate FiO2 12/14/16 07:42 93 Nasal Cannula 2.00 12/14/16 03:00 97.9 78 18 85/58 93 12/14/16 03:00 78 12/14/16 03:00 93 Nasal Cannula 2.00 12/13/16 23:00 96 12/13/16 23:00 98.5 96 18 91/62 94 12/13/16 23:00 96 Nasal Cannula 2.00 12/13/16 20:41 94 Nasal Cannula 2.00 12/13/16 19:00 94 Nasal Cannula 2.00 12/13/16 19:00 89 12/13/16 19:00 98.3 89 18 105/60 94 12/13/16 18:05 91 12/13/16 17:01 92 12/13/16 15:45 98.8 89 18 114/66 96 12/13/16 15:00 91 Nasal Cannula 2.00 12/13/16 14:01 106 12/13/16 13:00 105 12/13/16 12:00 115 12/13/16 11:45 98.3 116 18 96/41 95 12/13/16 11:00 97 I/O 12/13/16 12/13/16 12/13/16 12/14/16 12/14/1625/17 07:00 15:00 23:00 07:00 15:00 23:00 Intake Total 1200 ml 680 ml Output Total 450 ml 700 ml 825 ml Balance -450 ml 500 ml -145 ml Intake Oral 1200 ml 680 ml IV Total 0 ml Output Urine Total 450 ml 700 ml 825 ml # Voids 3 # Bowel Movements 1 0 Physical Exam GENERAL: NAD, AAOx3 SKIN: Dry HEAD: Atraumatic. Normocephalic. EYES: Pupils equal and round. No scleral icterus. No injection or drainage. ENT: No nasal bleeding or discharge. Mucous membranes pink and moist. NECK: Trachea midline. No JVD. CARDIOVASCULAR: Irregularly irregular RESPIRATORY: No accessory muscle use. Decreased breath sounds bilaterally GASTROINTESTINAL: Abdomen soft, non-tender, nondistended. Hepatic and splenic margins not palpable. MUSCULOSKELETAL: Extremities without clubbing, cyanosis, or edema. NEUROLOGICAL: No focal deficits Laboratory Laboratory Tests Test 12/14/16 05:21 White Blood Count 9.1 TH/MM3 Red Blood Count 4.04 MIL/MM3 Hemoglobin 12.0 GM/DL Hematocrit 34.2 % Mean Corpuscular Volume 84.6 FL Mean Corpuscular Hemoglobin 29.8 PG Mean Corpuscular Hemoglobin 35.2 % Concent Red Cell Distribution Width 13.6 % Platelet Count 238 TH/MM3 Mean Platelet Volume 9.9 FL Sodium Level 137 MEQ/L Potassium Level 3.1 MEQ/L Chloride Level 96 MEQ/L Carbon Dioxide Level 34.8 MEQ/L Anion Gap 6 MEQ/L Blood Urea Nitrogen 16 MG/DL Creatinine 0.83 MG/DL Estimat Glomerular Filtration 92 ML/MIN Rate Random Glucose 61 MG/DL Calcium Level 8.3 MG/DL Magnesium Level 2.0 MG/DL Assessment and Plan Problem List: (1) Multi-vessel coronary artery stenosis (2) Atrial fibrillation with RVR (3) NSTEMI (non-ST elevated myocardial infarction) (4) Hyperlipidemia (5) Diabetes mellitus, type II (6) History of seizure (7) Benign hypertension (8) Tobacco abuse (9) anxiety / depression Assessment and Plan 1) MVCAD s/p CABG POD#4 BISWAS to LAD SVG to OM2 SVG to D1 2) EF 35-40%, mild to mod MR pre-operatively 3) Not a great correction anticoagulation candidate due to multiple falls 4) ASA/Statin 5) Pain management, but seems lethargic with multiple pain meds 6) IS hourly 7) Bradycardia this am after receiving Amio/BB and pain meds... discussed with CT surgery, plan for moving to CVICU, atropine at the bedside, may need low- dose Dopamine until meds are out of the system Problem Qualifiers (1) Hyperlipidemia: Qualified Code: E78.00 - Pure hypercholesterolemia (2) Diabetes mellitus, type II: Qualified Code: E11.9 - Type 2 diabetes mellitus without complication, without long-term current use of insulin Saw Chairez DO Dec 14, 2016 10:58
[2016-12-14] MEDS ORDERED: SODIUM CHLOR 0.9% 250 ML INJ 250 ML IV ONE (11:00)
[2016-12-14] MEDS ORDERED: TERBUTALINE INJ 1 MG/ML AMP SQ PRN (11:00)
[2016-12-14] MEDS ORDERED: DOPamine INJ PREMIX 500 ML IV SCH (11:00)
--- NOTE | 2016-12-14 11:23 | HHI.PR ---
Subjective Remarks Patient still complaining of pain at the surgical site. BP low this morning, amiodarone and metoprolol were held. Currently denies shortness of breath. No lightheadedness. Agreeable to go to rehabilitation, he understands his limitations. Objective Vitals Vital Signs Date Time Temp Pulse Resp B/P Pulse Ox O2 Delivery O2 Flow Rate FiO2 12/14/16 07:42 93 Nasal Cannula 2.00 12/14/16 03:00 97.9 78 18 85/58 93 12/14/16 03:00 78 12/14/16 03:00 93 Nasal Cannula 2.00 12/13/16 23:00 96 12/13/16 23:00 98.5 96 18 91/62 94 12/13/16 23:00 96 Nasal Cannula 2.00 12/13/16 20:41 94 Nasal Cannula 2.00 12/13/16 19:00 94 Nasal Cannula 2.00 12/13/16 19:00 89 12/13/16 19:00 98.3 89 18 105/60 94 12/13/16 18:05 91 12/13/16 17:01 92 12/13/16 15:45 98.8 89 18 114/66 96 12/13/16 15:00 91 Nasal Cannula 2.00 12/13/16 14:01 106 12/13/16 13:00 105 12/13/16 12:00 115 12/13/16 11:45 98.3 116 18 96/41 95 I/O 12/13/16 12/13/16 12/13/16 12/14/16 12/14/16 12/14/16 07:00 15:00 23:00 07:00 15:00 23:00 Intake Total 1200 ml 680 ml Output Total 450 ml 700 ml 825 ml Balance -450 ml 500 ml -145 ml Intake Oral 1200 ml 680 ml IV Total 0 ml Output Urine Total 450 ml 700 ml 825 ml # Voids 3 # Bowel Movements 1 0 Result Diagram: 12/14/1652012/14/16520 Imaging Last Impressions Chest X-Ray 12/13/16 07 Signed Impressions: Service Date/Time: Tuesday, December 13, 2016 07:29 - CONCLUSION: Pleural-parenchymal density right lower lobe with slight volume loss could be atelectasis and/or consolidation. Possible kink in left subclavian catheter may be at the skin. Riley Masterson MD Lower Extremity Ultrasound 12/07/16 0000 Signed Impressions: Service Date/Time: Wednesday, December 07, 2016 10:46 - CONCLUSION: No evidence of deep venous thrombosis within the lower extremities. Eduardo Morocho MD Carotid Artery Ultrasound 12/07/16 0000 Signed Impressions: Service Date/Time: Wednesday, December 07, 2016 11:15 - CONCLUSION: Mild heterogeneous plaque seen bilaterally in the carotid bifurcations. No evidence of hemodynamically significant stenosis. Billy Oliva MD Objective Remarks GENERAL: This is a well-nourished, well-developed patient, in no apparent distress. CARDIOVASCULAR: Normal rate and regular rhythm without murmurs, gallops, or rubs. Appropriately tender around the surgical site. RESPIRATORY: Good respiratory efforts. Breath sounds equal and clear to auscultation bilaterally. GASTROINTESTINAL: Abdomen soft, non-tender, non-distended. Normal active bowel sounds MUSCULOSKELETAL: Extremities without cyanosis, or edema. NEURO: Alert & Oriented x4 to person, place, time, situation. Moves all ext x4 PSYCH: Appropriate mood and affect. A/P Problem List: (1) Multi-vessel coronary artery stenosis ICD Code: I25.10 Status: Acute (2) NSTEMI (non-ST elevated myocardial infarction) ICD Code: I21.4 Status: Acute (3) Atrial fibrillation with RVR ICD Code: I48.91 Status: Acute (4) Diabetes mellitus, type II ICD Code: E11.9 Status: Acute (5) Benign hypertension ICD Code: I10 Status: Acute (6) Hyperlipidemia ICD Code: E78.5 Status: Acute (7) Hypokalemia ICD Code: E87.6 Status: Resolved (8) History of seizure ICD Code: Z87.898 Status: Acute (9) Anxiety and depression ICD Code: F41.9 Status: Acute Assessment and Plan 71 y/o with a history of afib, dm and HLD, s/p CABG on 12/10 Multivessel coronary artery stenosis: Status post left heart catheterization with finding of Multivessel coronary artery disease with significant proximal LAD, ostial first diagonal, mid-second obtuse marginal; for which cardiothoracic surgery has been consulted. S/p CABG x3 12/10/16. -Continue with statin, ASA. Beta loreto held due to low blood pressure -Pain management with PO Oramorph with PRN IV morphine. Pain control difficult as the patient was on narcotics chronically prior to hospitalization. Need to be cautious with oversedation as well. -Chest xray this AM shows pleural-parenchymal density right lower lobe with slight volume loss, could be atelectasis and/or consolidation -Incentive spirometer ordered every hour Non-ST elevation MD: Status post left heart catheterization 12/06/16 with finding of multivessel coronary artery disease stenosis. Appreciate input from cardiology 2-D echo with EF 35-%. Cont BB/ASA/statin, as above. Not a great candidate for long-term anticoagulation 2/2 multiple falls. Atrial fibrillation rapid ventricular response, controlled -Cont to monitor telemetry -Metoprolol on hold. Diabetes type 2 -Continue to Hold oral hypoglycemic agent -Accu checks with SSI Other chronic medical conditions: Hyperlipidemia, hypertension, seizure disorder , diabetic neuropathy: Continue outpatient medications Depressed mood -Currently on Lexapro as of 12/09/16 and consider psychiatry consultation if no improvement Hypokalemia: Replace and monitor. Tobacco abuse, patient smokes 2-3PPD -Encouraged to quit -Tobacco counseling DVT prophylaxis: SCDs. Hold for chemical prophylaxis given recent CABG and CT placement. Discharge Planning Will likely need SNF once stable from cardiology standpoint. Patient agreeable. Discussed with case management. Problem Qualifiers (1) Diabetes mellitus, type II: Qualified Code: E11.9 - Type 2 diabetes mellitus without complication, without long-term current use of insulin (2) Hyperlipidemia: Qualified Code: E78.00 - Pure hypercholesterolemia Shantal Quintero MD Dec 14, 2016 11:22
[2016-12-14] MEDS ORDERED: ATROPINE SULFATE 1 MG/10 ML SYRINGE IV ONE (11:30)
[2016-12-14] MEDS ORDERED: CALCIUM CHLORIDE 10% SOLN 1 GRAM/10 ML SYR IV ONE (11:30)
[2016-12-14] MEDS: SENNOSIDES 8.6 MG TAB PO SCH (20:26)
[2016-12-14] MEDS: traMADol HCL 50 MG TAB PO PRN (20:56)
[2016-12-14] MEDS ORDERED: AMIODARONE 200 MG TAB PO SCH (21:00)
[2016-12-15] VITALS (20 sets, daily range): BP systolic 96–131; BP diastolic 56–75; PULSE 72–110; RESP 16–20; TEMP 97.8–98.4; O2SAT 92–100
[2016-12-15] MEDS: traMADol HCL 50 MG TAB PO PRN ×3 (04:11→16:18)
[2016-12-15] MEDS: PANTOPRAZOLE SOD 40 MG DELAYED RELEASE TAB PO SCH (05:24)
[2016-12-15 06:10] LABS: HEMATOCRIT 33.4 % (39.0-51.0); MEAN CELL VOLUME 85.4 FL (80.0-100.0); MEAN CORPUSCULAR HEMOGLOBIN 28.8 PG (27.0-34.0); MEAN CORPUSCULAR HGB CONC 33.7 % (32.0-36.0); PLATELET COUNT 248 TH/MM3 (150-450); RED BLOOD COUNT 3.91 MIL/MM3 (4.50-5.90); RED CELL DISTRIBUTION WIDTH 13.7 % (11.6-17.2); REVIEW FLAG FINAL; WHITE BLOOD COUNT 6.9 TH/MM3 (4.0-11.0)
[2016-12-15 06:26] LABS: BICARBONATE 35.2 MEQ/L (21.0-32.0); MAGNESIUM 1.9 MG/DL (1.5-2.5); POTASSIUM 3.7 MEQ/L (3.5-5.1)
[2016-12-15] MEDS: INSULIN ASPART SUPPLEMENTAL SCALE SQ SCH ×4 (06:53→20:26)
[2016-12-15] MEDS: RESP: ALBUTEROL 2.5 MG/IPRATROPIUM 0.5 MG NEB (SCH) NEB ×3 (07:24→19:14)
[2016-12-15] MEDS: DOCUSATE SODIUM 100 MG CAP PO SCH (07:35)
[2016-12-15] MEDS: POLYETHYLENE GLYCOL 17 GM PKG PO SCH (07:36)
[2016-12-15] MEDS: MAGNESIUM HYDROXIDE SUSP 30 ML CUP PO SCH (07:36)
[2016-12-15] MEDS: MULTIVITAMINS/MINERALS THERAPEUTIC TAB PO SCH (08:17)
[2016-12-15] MEDS: ESCITALOPRAM OXALATE 10 MG TAB PO SCH (08:17)
[2016-12-15] MEDS: levETIRAcetam 250 MG TAB PO SCH ×2 (08:17→20:25)
[2016-12-15] MEDS: SODIUM CHLORIDE 0.9% FLUSH 10 ML FLUSH IV FLUSH SCH ×2 (08:17→20:26)
[2016-12-15] MEDS: PRAVASTATIN SOD 40 MG TAB PO SCH (08:17)
[2016-12-15] MEDS: ALUMINUM/MAGNESIUM/SIMETH 30 ML CUP PO SCH (08:18)
[2016-12-15] MEDS: ASPIRIN 81 MG CHEW TAB PO SCH (08:18)
[2016-12-15] MEDS ORDERED: DOCUSATE SODIUM 100 MG CAP PO PRN (08:45)
[2016-12-15] MEDS ORDERED: SENNOSIDES 8.6 MG TAB PO PRN (08:45)
[2016-12-15] MEDS ORDERED: MAGNESIUM SULFATE 1 GM PREMIX 100 ML IV ONE (09:00)
[2016-12-15] MEDS ORDERED: POTASSIUM CHLORIDE 25 MEQ EFFERVESCENT TAB PO ONE (09:00)
--- NOTE | 2016-12-15 10:00 | HHI.PR ---
Subjective Remarks Patient is feeling better. Pain at the surgical site is better. No shortness of breath. On room air. Objective Vitals Vital Signs Date Time Temp Pulse Resp B/P Pulse Ox O2 Delivery O2 Flow Rate FiO2 12/15/16 07:29 98 Nasal Cannula 2.00 Humidified 12/15/16 07:27 98.2 72 16 124/56 98 12/15/16 07:25 92 Nasal Cannula 3.00 12/15/16 07:00 73 12/15/16 03:27 98.1 76 16 106/69 98 12/15/16 03:27 98 Nasal Cannula 2.00 Humidified 12/15/16 03:27 76 12/14/16 23:11 98.0 70 16 108/57 98 12/14/16 23:11 98 Nasal Cannula 2.00 Humidified 12/14/16 23:11 70 12/14/16 21:09 93 Nasal Cannula 3.00 12/14/16 19:24 100 Nasal Cannula 2.00 Humidified 12/14/16 19:24 98.0 74 16 97/55 100 12/14/16 19:00 74 12/14/16 15:18 94 Nasal Cannula 2.00 12/14/16 15:15 98.4 73 18 99/74 93 12/14/16 15:00 69 12/14/16 12:44 93 Nasal Cannula 2.00 12/14/16 12:30 83 12/14/16 11:00 98.3 81 19 111/74 96 I/O 12/14/16 12/14/16 12/14/16 12/15/16 12/15/16 12/15/16 07:00 15:00 23:00 07:00 15:00 23:00 Intake Total 680 ml 1240 ml 480 ml Output Total 825 ml 750 ml 1200 ml Balance -145 ml 490 ml -720 ml Intake Oral 680 ml 840 ml 480 ml IV Total 400 ml Output Urine Total 825 ml 750 ml 1200 ml # Bowel Movements 0 1 6 Result Diagram: 12/15/16 0550 12/15/16 0550 Objective Remarks GENERAL: This is a well-nourished, well-developed patient, in no apparent distress. CARDIOVASCULAR: Normal rate and regular rhythm without murmurs, gallops, or rubs. Appropriately tender around the surgical site. RESPIRATORY: Good respiratory efforts. Breath sounds equal and clear to auscultation bilaterally. GASTROINTESTINAL: Abdomen soft, non-tender, non-distended. Normal active bowel sounds MUSCULOSKELETAL: Extremities without cyanosis, or edema. NEURO: Alert & Oriented x4 to person, place, time, situation. Moves all ext x4 PSYCH: Appropriate mood and affect. A/P Problem List: (1) Multi-vessel coronary artery stenosis ICD Code: I25.10 Status: Acute (2) NSTEMI (non-ST elevated myocardial infarction) ICD Code: I21.4 Status: Acute (3) Atrial fibrillation with RVR ICD Code: I48.91 Status: Acute (4) Diabetes mellitus, type II ICD Code: E11.9 Status: Acute (5) Benign hypertension ICD Code: I10 Status: Acute (6) Hyperlipidemia ICD Code: E78.5 Status: Acute (7) Hypokalemia ICD Code: E87.6 Status: Resolved (8) History of seizure ICD Code: Z87.898 Status: Acute (9) Anxiety and depression ICD Code: F41.9 Status: Acute Assessment and Plan 71 y/o with a history of afib, dm and HLD, s/p CABG on 12/10 Multivessel coronary artery stenosis: Status post left heart catheterization with finding of Multivessel coronary artery disease with significant proximal LAD, ostial first diagonal, mid-second obtuse marginal; for which cardiothoracic surgery has been consulted. S/p CABG x3 12/10/16. -Continue with statin, ASA. Beta loreto held due to low blood pressure -Pain management with PO Oramorph with PRN IV morphine. Pain control difficult as the patient was on narcotics chronically prior to hospitalization. Need to be cautious with oversedation as well. -Chest xray this AM shows pleural-parenchymal density right lower lobe with slight volume loss, could be atelectasis and/or consolidation -Incentive spirometer ordered every hour - Improving overall but needs rehab. Non-ST elevation [place]: Status post left heart catheterization 12/06/16 with finding of multivessel coronary artery disease stenosis. Appreciate input from cardiology, 2-D echo with EF 35-%. Cont BB/ASA/statin, as above. Not a great candidate for long-term anticoagulation 2/2 multiple falls. Atrial fibrillation rapid ventricular response, controlled -Cont to monitor telemetry -Metoprolol on hold. Diabetes type 2 -Continue to Hold oral hypoglycemic agent -Accu checks with SSI Other chronic medical conditions: Hyperlipidemia, hypertension, seizure disorder , diabetic neuropathy: Continue outpatient medications Depressed mood -Currently on Lexapro as of 12/09/16 and consider psychiatry consultation if no improvement Hypokalemia: Replace and monitor. Tobacco abuse, patient smokes 2-3PPD -Encouraged to quit -Tobacco counseling DVT prophylaxis: SCDs. Hold for chemical prophylaxis given recent CABG and CT placement. Discharge Planning Will likely need SNF once stable from cardiology standpoint. Patient agreeable. Discussed with case management. Problem Qualifiers (1) Diabetes mellitus, type II: Qualified Code: E11.9 - Type 2 diabetes mellitus without complication, without long-term current use of insulin (2) Hyperlipidemia: Qualified Code: E78.00 - Pure hypercholesterolemia Shantal Quintero MD Dec 15, 2016 10:00
--- NOTE | 2016-12-15 11:19 | PD.CAR.PN ---
CVT Progress Note CVT: POD #: 5 Subjective/Hospital Course: 71/ male / [facility] admitted [facility] chest pain / HX CAD/ prior [place] / admit with NSTEMI / s/p heart cath multi vessel disease. 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/ anxiety depression , HTN, afib, DM 12/07 pt on Heparin and imdur, statin, ASA pain free, tentatively scheduled for surgery on Friday 12/08 pt developed midsternal chest pain this am 03/31 now 08/31, received morphine and started on NTG gtt remains on NTG gtt scheduled for surgery on Tuesday / remains in Afib rate controlled, some occasional 2-3 sec pauses 12/09 no further chest pain, c/o feeling depressed agreeable for surgery in am on Heparin gtt OR in am 12/10 Procedure: Urgent CABG x 3 BISWAS to LAD - good SVG to OM2 - good SVG to D1 - good EVH 12/11 Doing well Incisional pain Needs pulmonary toiletry Transfer [facility] 12/12 Doing well D/C CT today 12/13 on nasal cannula/ poor cough effort congested / CXR noted right lower lobe infiltrate continue nebs/ ezpap/ acapella will need antony when tolerates, 12/14 pt remains in Afib rate controlled / poor candidate for NOAC or coumadin 2/2 high risk for falls pt c/o of pain , however sleepy , but improved from yesterday aggressive pulm toileting, ambulate, IS hold on further diuresis , BP labile , hold on ANTONY decrease amiodarone dose will need rehab placement 12/15 pt more awake , remains in afib, no further bradycardia x 24 hrs + diarrhea last pm, Gi motility meds changed to prn check stool for cdiff transfer back to [facility] stepdown eval for rehab placement Objective: GENERAL: SKIN: Warm and dry.prevena dressing to chest HEAD: Normocephalic. EYES: No scleral icterus. No injection or drainage. NECK: Supple, trachea midline. No JVD or lymphadenopathy. CARDIOVASCULAR: irregular rate and rhythm without murmurs, gallops, or rubs. RESPIRATORY: Breath sounds equal bilaterally. No accessory muscle use. diminished in bases GASTROINTESTINAL: Abdomen soft, non-tender, nondistended. + bowel sounds MUSCULOSKELETAL: No cyanosis, or edema. BACK: Nontender without obvious deformity. No CVA tenderness. Vital Signs Date Time Temp Pulse Resp B/P Pulse Ox O2 Delivery O2 Flow Rate FiO2 12/15/16 07:29 98 Nasal Cannula 2.00 Humidified 12/15/16 07:27 98.2 72 16 124/56 98 12/15/16 07:25 92 Nasal Cannula 3.00 12/15/16 07:00 73 12/15/16 03:27 98.1 76 16 106/69 98 12/15/16 03:27 98 Nasal Cannula 2.00 Humidified 12/15/16 03:27 76 12/14/16 23:11 98.0 70 16 108/57 98 12/14/16 23:11 98 Nasal Cannula 2.00 Humidified 12/14/16 23:11 70 12/14/16 21:09 93 Nasal Cannula 3.00 12/14/16 19:24 100 Nasal Cannula 2.00 Humidified 12/14/16 19:24 98.0 74 16 97/55 100 12/14/16 19:00 74 12/14/16 15:18 94 Nasal Cannula 2.00 12/14/16 15:15 98.4 73 18 99/74 93 12/14/16 15:00 69 12/14/16 12:44 93 Nasal Cannula 2.00 12/14/16 12:30 83 Labs: Laboratory Tests Test 12/15/16 05:50 White Blood Count 6.9 TH/MM3 (4.0-11.0) Red Blood Count 3.91 MIL/MM3 (4.50-5.90) Hemoglobin 11.2 GM/DL (13.0-17.0) Hematocrit 33.4 % (39.0-51.0) Mean Corpuscular Volume 85.4 FL (80.0-100.0) Mean Corpuscular Hemoglobin 28.8 PG (27.0-34.0) Mean Corpuscular Hemoglobin 33.7 % Concent (32.0-36.0) Red Cell Distribution Width 13.7 % (11.6-17.2) Platelet Count 248 TH/MM3 (150-450) Mean Platelet Volume 9.6 FL (7.0-11.0) Sodium Level 136 MEQ/L (136-145) Potassium Level 3.7 MEQ/L (3.5-5.1) Chloride Level 96 MEQ/L (98-107) Carbon Dioxide Level 35.2 MEQ/L (21.0-32.0) Anion Gap 5 MEQ/L (5-15) Blood Urea Nitrogen 14 MG/DL (7-18) Creatinine 0.74 MG/DL (0.60-1.30) Estimat Glomerular Filtration 105 ML/MIN Rate (>89) Random Glucose 107 MG/DL (74-106) Calcium Level 8.2 MG/DL (8.5-10.1) Magnesium Level 1.9 MG/DL (1.5-2.5) Result Diagram: 12/15/1650 12/15/1650 Telemetry: afib (1) Multi-vessel coronary artery stenosis Plan: on ASA, , statin increase pulm toileting OOB/ OT no amiodarone , no BB for now with recent symptomatic bradycardia now resolved increase activity / ambulation (2) Atrial fibrillation with RVR Plan: afib/ rate controlled, NO NOAC or coumadin / high risk for falls HR dropped into high 30"as and 40/ resolved amiodarone and BB DC, BP stable , continue to monitor (3) NSTEMI (non-ST elevated myocardial infarction) (4) Hyperlipidemia Plan: on statin (5) Diabetes mellitus, type II Plan: HGB A1c 7.3/ on sliding scale / blood sugar labile / no oral meds at this time / blood sugars stable (6) History of seizure Plan: home meds resumed / on keppra / check level (7) Benign hypertension (8) Tobacco abuse Plan: tobacco cessation (9) anxiety / depression Plan: hx of mood disorder/ psych/ low dose lexapro (10) Chronic pain Plan: pain meds decreased Problem Qualifiers (1) Hyperlipidemia: Qualified Code: E78.00 - Pure hypercholesterolemia (2) Diabetes mellitus, type II: Qualified Code: E11.9 - Type 2 diabetes mellitus without complication, without long-term current use of insulin Shamika Stallworth Dec 15, 2016 11:18
--- NOTE | 2016-12-15 11:25 | PD.CAR.PN ---
CVT Progress Note Subjective/Hospital Course: 71/ male / [facility] admitted [facility] chest pain / HX CAD/ prior [place] / admit with NSTEMI / s/p heart cath multi vessel disease. 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/ anxiety depression , HTN, afib, DM 12/07 pt on Heparin and imdur, statin, ASA pain free, tentatively scheduled for surgery on Friday 12/08 pt developed midsternal chest pain this am 03/31 now 08/31, received morphine and started on NTG gtt remains on NTG gtt scheduled for surgery on Tuesday / remains in Afib rate controlled, some occasional 2-3 sec pauses 12/09 no further chest pain, c/o feeling depressed agreeable for surgery in am on Heparin gtt OR in am 12/10 Procedure: Urgent CABG x 3 BISWAS to LAD - good SVG to OM2 - good SVG to D1 - good EVH 12/11 Doing well Incisional pain Needs pulmonary toiletry Transfer [facility] 12/12 Doing well D/C CT today 12/13 on nasal cannula/ poor cough effort congested / CXR noted right lower lobe infiltrate continue nebs/ ezpap/ acapella will need antony when tolerates, 12/14 pt remains in Afib rate controlled / poor candidate for NOAC or coumadin 2/2 high risk for falls pt c/o of pain , however sleepy , but improved from yesterday aggressive pulm toileting, ambulate, IS hold on further diuresis , BP labile , hold on ANTONY decrease amiodarone dose will need rehab placement 12/15 pt more awake , remains in afib, no further bradycardia x 24 hrs + diarrhea last pm, Gi motility meds changed to prn check stool for cdiff transfer back to [facility] stepdown eval for rehab placement Objective: Vital Signs Date Time Temp Pulse Resp B/P Pulse Ox O2 Delivery O2 Flow Rate FiO2 12/15/16 07:29 98 Nasal Cannula 2.00 Humidified 12/15/16 07:27 98.2 72 16 124/56 98 12/15/16 07:25 92 Nasal Cannula 3.00 12/15/16 07:00 73 12/15/16 03:27 98.1 76 16 106/69 98 4/26/17 03:27 98 Nasal Cannula 2.00 Humidified 12/15/16 03:27 76 12/14/16 23:11 98.0 70 16 108/57 98 12/14/16 23:11 98 Nasal Cannula 2.00 Humidified 12/14/16 23:11 70 12/14/16 21:09 93 Nasal Cannula 3.00 12/14/16 19:24 100 Nasal Cannula 2.00 Humidified 12/14/16 19:24 98.0 74 16 97/55 100 12/14/16 19:00 74 12/14/16 15:18 94 Nasal Cannula 2.00 12/14/16 15:15 98.4 73 18 99/74 93 12/14/16 15:00 69 12/14/16 12:44 93 Nasal Cannula 2.00 12/14/16 12:30 83 Labs: Laboratory Tests Test 12/15/16 05:50 White Blood Count 6.9 TH/MM3 (4.0-11.0) Red Blood Count 3.91 MIL/MM3 (4.50-5.90) Hemoglobin 11.2 GM/DL (13.0-17.0) Hematocrit 33.4 % (39.0-51.0) Mean Corpuscular Volume 85.4 FL (80.0-100.0) Mean Corpuscular Hemoglobin 28.8 PG (27.0-34.0) Mean Corpuscular Hemoglobin 33.7 % Concent (32.0-36.0) Red Cell Distribution Width 13.7 % (11.6-17.2) Platelet Count 248 TH/MM3 (150-450) Mean Platelet Volume 9.6 FL (7.0-11.0) Sodium Level 136 MEQ/L (136-145) Potassium Level 3.7 MEQ/L (3.5-5.1) Chloride Level 96 MEQ/L (98-107) Carbon Dioxide Level 35.2 MEQ/L (21.0-32.0) Anion Gap 5 MEQ/L (5-15) Blood Urea Nitrogen 14 MG/DL (7-18) Creatinine 0.74 MG/DL (0.60-1.30) Estimat Glomerular Filtration 105 ML/MIN Rate (>89) Random Glucose 107 MG/DL (74-106) Calcium Level 8.2 MG/DL (8.5-10.1) Magnesium Level 1.9 MG/DL (1.5-2.5) Result Diagram: 12/15/16 0550 12/15/16 0550 (1) Multi-vessel coronary artery stenosis Plan: on ASA, , statin increase pulm toileting OOB/ OT no amiodarone , no BB for now with recent symptomatic bradycardia now resolved increase activity / ambulation (2) Atrial fibrillation with RVR Plan: afib/ rate controlled, NO NOAC or coumadin / high risk for falls HR dropped into high 30"as and 40/ resolved amiodarone and BB DC, BP stable , continue to monitor (3) NSTEMI (non-ST elevated myocardial infarction) (4) Hyperlipidemia Plan: on statin (5) Diabetes mellitus, type II Plan: HGB A1c 7.3/ on sliding scale / blood sugar labile / no oral meds at this time / blood sugars stable (6) History of seizure Plan: home meds resumed / on keppra / check level (7) Benign hypertension (8) Tobacco abuse Plan: tobacco cessation (9) anxiety / depression Plan: hx of mood disorder/ psych/ low dose lexapro (10) Chronic pain Plan: pain meds decreased Problem Qualifiers (1) Hyperlipidemia: Qualified Code: E78.00 - Pure hypercholesterolemia (2) Diabetes mellitus, type II: Qualified Code: E11.9 - Type 2 diabetes mellitus without complication, without long-term current use of insulin Shamika Stallworth Dec 15, 2016 11:25
--- NOTE | 2016-12-15 11:53 | PD.CARD.PN ---
Subjective Subjective Remarks No chest pain, no shortness of breath Better today Objective Medications Current Medications Medications (Trade) Dose Ordered Sig/Romie Route Start Time Stop Time Status Last Admin (NS Flush) 2 ml BID IV FLUSH 12/06/16 21:00 12/15/16 08:17 (NS Flush) 2 ml UNSCH PRN IV FLUSH 12/06/16 11:45 (Aspirin Chew) 162 mg DAILY PO 12/07/16 09:00 12/15/16 08:18 (Keppra) 750 mg BID PO 12/06/16 21:00 12/15/16 08:17 (Pravachol) 40 mg DAILY PO 12/07/16 09:00 12/15/16 08:17 (Lexapro) 10 mg DAILY PO 12/09/16 13:00 12/15/16 08:17 (Protonix) 40 mg DAILY@06 PO 12/11/16 06:00 12/15/16 05:24 (Zofran Inj) 4 mg Q6H PRN IV PUSH 12/10/16 11:30 12/15/16 08:41 (Theragran M Tab) 1 tab DAILY PO 12/11/16 10:00 12/15/16 08:17 (Milk Of Magnesia Liq) 30 ml DAILY PO 12/11/16 10:00 12/14/16 09:09 (Miralax) 17 gm DAILY PO 12/12/16 09:00 12/14/16 09:09 (Fleets Enema (Adult)) 133 ml UNSCH PRN RECTAL 12/11/16 09:00 (D50w (Vial) Inj) 25 ml UNSCH PRN IV 12/11/16 09:00 (Glucagon Inj) 1 mg UNSCH PRN OTHER 12/11/16 09:00 (Pill Splitter) 1 ea UNSCH PRN OTHER 12/11/16 09:30 (NovoLOG SUPPLEMENTAL SCALE) 1 ACHS SQ 12/13/16 11:00 12/14/16 20:49 (Ultram) 50 mg Q6H PRN PO 12/14/16 12:15 12/15/16 10:09 (Msir) 15 mg Q4H PRN PO 12/14/16 13:15 (Colace) 100 mg BID PRN PO 12/15/16 08:45 (Senokot) 8.6 mg HS PRN PO 12/15/16 08:45 Vital Signs / I&O Vital Signs Date Time Temp Pulse Resp B/P Pulse Ox O2 Delivery O2 Flow Rate FiO2 12/15/16 11:49 97.9 95 18 131/64 99 12/15/16 07:29 98 Nasal Cannula 2.00 Humidified 12/15/16 07:27 98.2 72 16 124/56 98 12/15/16 07:25 92 Nasal Cannula 3.00 12/15/16 07:00 73 12/15/16 03:27 98.1 76 16 106/69 98 12/15/16 03:27 98 Nasal Cannula 2.00 Humidified 12/15/16 03:27 76 12/14/16 23:11 98.0 70 16 108/57 98 12/14/16 23:11 98 Nasal Cannula 2.00 Humidified 12/14/16 23:11 70 12/14/16 21:09 93 Nasal Cannula 3.00 12/14/16 19:24 100 Nasal Cannula 2.00 Humidified 12/14/16 19:24 98.0 74 16 97/55 100 12/14/16 19:00 74 12/14/16 15:18 94 Nasal Cannula 2.00 12/14/16 15:15 98.4 73 18 99/74 93 12/14/16 15:00 69 12/14/16 12:44 93 Nasal Cannula 2.00 12/14/16 12:30 83 I/O 12/14/16 12/14/16 12/14/16 12/15/16 12/15/16 12/15/16 07:00 15:00 23:00 07:00 15:00 23:00 Intake Total 680 ml 1240 ml 480 ml 725 ml Output Total 825 ml 750 ml 1200 ml 350 ml Balance -145 ml 490 ml -720 ml 375 ml Intake Oral 680 ml 840 ml 480 ml 625 ml IV Total 400 ml 100 ml Output Urine Total 825 ml 750 ml 1200 ml 350 ml # Bowel Movements 0 1 6 1 Physical Exam GENERAL: NAD, AAOx3 SKIN: Dry HEAD: Atraumatic. Normocephalic. EYES: Pupils equal and round. No scleral icterus. No injection or drainage. ENT: No nasal bleeding or discharge. Mucous membranes pink and moist. NECK: Trachea midline. No JVD. CARDIOVASCULAR: Irregularly irregular RESPIRATORY: No accessory muscle use. Decreased breath sounds bilaterally GASTROINTESTINAL: Abdomen soft, non-tender, nondistended. Hepatic and splenic margins not palpable. MUSCULOSKELETAL: Extremities without clubbing, cyanosis, or edema. NEUROLOGICAL: No focal deficits Laboratory Laboratory Tests Test 12/15/16 05:50 White Blood Count 6.9 TH/MM3 Red Blood Count 3.91 MIL/MM3 Hemoglobin 11.2 GM/DL Hematocrit 33.4 % Mean Corpuscular Volume 85.4 FL Mean Corpuscular Hemoglobin 28.8 PG Mean Corpuscular Hemoglobin 33.7 % Concent Red Cell Distribution Width 13.7 % Platelet Count 248 TH/MM3 Mean Platelet Volume 9.6 FL Sodium Level 136 MEQ/L Potassium Level 3.7 MEQ/L Chloride Level 96 MEQ/L Carbon Dioxide Level 35.2 MEQ/L Anion Gap 5 MEQ/L Blood Urea Nitrogen 14 MG/DL Creatinine 0.74 MG/DL Estimat Glomerular Filtration 105 ML/MIN Rate Random Glucose 107 MG/DL Calcium Level 8.2 MG/DL Magnesium Level 1.9 MG/DL Assessment and Plan Problem List: (1) Multi-vessel coronary artery stenosis (2) Atrial fibrillation with RVR (3) NSTEMI (non-ST elevated myocardial infarction) (4) Hyperlipidemia (5) Diabetes mellitus, type II (6) History of seizure (7) Benign hypertension (8) Tobacco abuse (9) anxiety / depression (10) Chronic pain Assessment and Plan 1) MVCAD s/p CABG POD#5 BISWAS to LAD SVG to OM2 SVG to D1 2) EF 35-40%, mild to mod MR pre-operatively 3) Not a great nursing home anticoagulation candidate due to multiple falls 4) ASA/Statin 5) Pain management, but seems lethargic with multiple pain meds 6) IS hourly 7) No further bradycardia, will plan to avoid Amiodarone, but may add back Beta- Radha if heart rate still borderline elevated Problem Qualifiers (1) Hyperlipidemia: Qualified Code: E78.00 - Pure hypercholesterolemia (2) Diabetes mellitus, type II: Qualified Code: E11.9 - Type 2 diabetes mellitus without complication, without long-term current use of insulin Swa Chairez DO Dec 15, 2016 11:53
[2016-12-15 13:09] LABS: C. DIFF EPI 027 PRESUMPTIVE NEGATIVE (NEGATIVE); C. DIFF TOXIN PCR NEGATIVE (NEGATIVE)
[2016-12-15] MEDS: MORPHINE SULFATE 15 MG TAB PO PRN (20:26)
[2016-12-16] VITALS (28 sets, daily range): BP systolic 99–119; BP diastolic 66–76; PULSE 75–138; RESP 16–20; TEMP 97.5–98.5; O2SAT 91–98
[2016-12-16] MEDS: MORPHINE SULFATE 15 MG TAB PO PRN ×2 (03:36→09:52)
[2016-12-16] MEDS: PANTOPRAZOLE SOD 40 MG DELAYED RELEASE TAB PO SCH (05:57)
[2016-12-16] MEDS: INSULIN ASPART SUPPLEMENTAL SCALE SQ SCH ×4 (06:08→21:00)
[2016-12-16 06:16] LABS: HEMATOCRIT 32.6 % (39.0-51.0); MEAN CELL VOLUME 85.2 FL (80.0-100.0); MEAN CORPUSCULAR HEMOGLOBIN 29.9 PG (27.0-34.0); MEAN CORPUSCULAR HGB CONC 35.1 % (32.0-36.0); PLATELET COUNT 289 TH/MM3 (150-450); RED BLOOD COUNT 3.83 MIL/MM3 (4.50-5.90); RED CELL DISTRIBUTION WIDTH 13.9 % (11.6-17.2); REVIEW FLAG FINAL; WHITE BLOOD COUNT 6.8 TH/MM3 (4.0-11.0)
[2016-12-16 06:42] LABS: BICARBONATE 32.4 MEQ/L (21.0-32.0); POTASSIUM 3.7 MEQ/L (3.5-5.1)
[2016-12-16] MEDS: RESP: ALBUTEROL 2.5 MG/IPRATROPIUM 0.5 MG NEB (SCH) NEB ×3 (07:32→20:04)
[2016-12-16] MEDS ORDERED: POTASSIUM CHLORIDE 20 MEQ CONTROLLED RELEASE TAB PO ONE (08:30)
[2016-12-16] MEDS: POLYETHYLENE GLYCOL 17 GM PKG PO SCH (09:00)
[2016-12-16] MEDS: MAGNESIUM HYDROXIDE SUSP 30 ML CUP PO SCH (09:00)
[2016-12-16] MEDS: PRAVASTATIN SOD 40 MG TAB PO SCH (09:51)
[2016-12-16] MEDS: MULTIVITAMINS/MINERALS THERAPEUTIC TAB PO SCH (09:52)
[2016-12-16] MEDS: ESCITALOPRAM OXALATE 10 MG TAB PO SCH (09:53)
[2016-12-16] MEDS: levETIRAcetam 250 MG TAB PO SCH ×2 (09:53→21:35)
[2016-12-16] MEDS: SODIUM CHLORIDE 0.9% FLUSH 10 ML FLUSH IV FLUSH SCH ×2 (09:53→21:35)
[2016-12-16] MEDS: ASPIRIN 81 MG CHEW TAB PO SCH (10:02)
--- NOTE | 2016-12-16 10:12 | PD.CAR.PN ---
CVT Progress Note CVT: POD #: 6 Subjective/Hospital Course: 71/ male / [facility] admitted for chest pain / HX CAD/ prior [place] / admit with NSTEMI / s/p heart cath multi vessel disease. 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/ anxiety depression , HTN, afib, DM 12/07 pt on Heparin and imdur, statin, ASA pain free, tentatively scheduled for surgery on Friday 12/08 pt developed midsternal chest pain this am 03/31 now 08/31, received morphine and started on NTG gtt remains on NTG gtt scheduled for surgery on Tuesday / remains in Afib rate controlled, some occasional 2-3 sec pauses 12/09 no further chest pain, c/o feeling depressed agreeable for surgery in am on Heparin gtt OR in am 12/10 Procedure: Urgent CABG x 3 BISWAS to LAD - good SVG to OM2 - good SVG to D1 - good EVH 12/11 Doing well Incisional pain Needs pulmonary toiletry Transfer [facility] 12/12 Doing well D/C CT today 12/13 on nasal cannula/ poor cough effort congested / CXR noted right lower lobe infiltrate continue nebs/ ezpap/ acapella will need antony when tolerates, 12/14 pt remains in Afib rate controlled / poor candidate for NOAC or coumadin 2/2 high risk for falls pt c/o of pain , however sleepy , but improved from yesterday aggressive pulm toileting, ambulate, IS hold on further diuresis , BP labile , hold on ANTONY decrease amiodarone dose will need rehab placement 12/15 pt more awake , remains in afib, no further bradycardia x 24 hrs + diarrhea last pm, Gi motility meds changed to prn check stool for cdiff transfer back to [facility] stepdown eval for rehab placement 12/16 sleepy this am, despite saying he slept ok last night will dc morphine IR and change to oxycodone prn stool neg for cdiff, no more diarrhea remains in afib rate controlled, not a candidate for NOAC or coumadin start ANTONY when BP tolerates eval for dc to rehab Objective: GENERAL: sleepy , but wakens easily SKIN: Warm and dry. prevena to chest HEAD: Normocephalic. EYES: No scleral icterus. No injection or drainage. NECK: Supple, trachea midline. No JVD or lymphadenopathy. CARDIOVASCULAR: irregular rate and rehythm without murmurs, gallops, or rubs. RESPIRATORY: Breath sounds equal bilaterally. No accessory muscle use. diminished in bases GASTROINTESTINAL: Abdomen soft, non-tender, nondistended. MUSCULOSKELETAL: No cyanosis, or edema. BACK: Nontender without obvious deformity. No CVA tenderness. Vital Signs Date Time Temp Pulse Resp B/P Pulse Ox O2 Delivery O2 Flow Rate FiO2 12/16/16 07:37 97 Nasal Cannula 2.50 12/16/16 06:00 85 12/16/16 05:00 92 12/16/16 04:50 18 12/16/16 04:00 90 12/16/16 03:00 98 Nasal Cannula 3.00 12/16/16 03:00 97.5 104 20 111/67 98 12/16/16 03:00 90 12/16/16 02:00 90 12/16/16 01:00 87 12/16/16 00:00 93 12/15/16 23:00 100 Nasal Cannula 3.00 12/15/16 23:00 98.4 107 20 96/75 100 12/15/16 23:00 105 12/15/16 22:00 94 12/15/16 21:00 100 12/15/16 20:00 100 Nasal Cannula 3.00 12/15/16 20:00 98.0 108 20 118/64 100 12/15/16 20:00 96 12/15/16 19:17 97 Nasal Cannula 3.00 12/15/16 19:00 101 12/15/16 18:27 95 12/15/16 17:03 93 12/15/16 16:06 94 12/15/16 15:47 98 Nasal Cannula 2.00 12/15/16 15:47 110 12/15/16 15:30 97.8 81 20 110/65 98 12/15/16 14:04 100 12/15/16 13:00 94 12/15/16 12:19 92 12/15/16 11:49 97.9 95 18 131/64 99 12/15/16 11:00 96 12/15/16 11:00 99 Nasal Cannula 2.00 Labs: Laboratory Tests Test 12/16/16 05:48 White Blood Count 6.8 TH/MM3 (4.0-11.0) Red Blood Count 3.83 MIL/MM3 (4.50-5.90) Hemoglobin 11.5 GM/DL (13.0-17.0) Hematocrit 32.6 % (39.0-51.0) Mean Corpuscular Volume 85.2 FL (80.0-100.0) Mean Corpuscular Hemoglobin 29.9 PG (27.0-34.0) Mean Corpuscular Hemoglobin 35.1 % Concent (32.0-36.0) Red Cell Distribution Width 13.9 % (11.6-17.2) Platelet Count 289 TH/MM3 (150-450) Mean Platelet Volume 9.6 FL (7.0-11.0) Sodium Level 141 MEQ/L (136-145) Potassium Level 3.7 MEQ/L (3.5-5.1) Chloride Level 99 MEQ/L (98-107) Carbon Dioxide Level 32.4 MEQ/L (21.0-32.0) Anion Gap 10 MEQ/L (5-15) Blood Urea Nitrogen 9 MG/DL (7-18) Creatinine 0.67 MG/DL (0.60-1.30) Estimat Glomerular Filtration 118 ML/MIN Rate (>89) Random Glucose 76 MG/DL (74-106) Calcium Level 8.7 MG/DL (8.5-10.1) Magnesium Level 2.0 MG/DL (1.5-2.5) Result Diagram: 12/16/1648 12/16/16 0548 Telemetry: afib (1) Multi-vessel coronary artery stenosis Plan: on ASA, , statin pulm toileting OOB/ OT no amiodarone , no BB for now with recent symptomatic bradycardia now resolved increase activity / ambulation decrease pain meds eval for dc to rehab from [facility] standpoint (2) Atrial fibrillation with RVR Plan: afib/ rate controlled, NO NOAC or coumadin / high risk for falls HR dropped into high 30"as and 40/ resolved amiodarone and BB DC, BP stable , continue to monitor (3) NSTEMI (non-ST elevated myocardial infarction) (4) Hyperlipidemia Plan: on statin (5) Diabetes mellitus, type II Plan: HGB A1c 7.3/ on sliding scale / blood sugar labile / no oral meds at this time / blood sugars stable (6) History of seizure Plan: home meds resumed / on keppra / check level (7) Benign hypertension (8) Tobacco abuse Plan: tobacco cessation (9) anxiety / depression Plan: hx of mood disorder/ psych/ low dose lexapro (10) Chronic pain Plan: pain meds decreased Problem Qualifiers (1) Hyperlipidemia: Qualified Code: E78.00 - Pure hypercholesterolemia (2) Diabetes mellitus, type II: Qualified Code: E11.9 - Type 2 diabetes mellitus without complication, without long-term current use of insulin Shamika Stallworth Dec 16, 2016 10:12
--- NOTE | 2016-12-16 10:13 | PD.CARD.PN ---
Subjective Subjective Remarks No chest pain, no shortness of breath Pain overall is not as bad as before Telemetry with Afib mostly CVR Objective Medications Current Medications Medications (Trade) Dose Ordered Sig/Romie Route Start Time Stop Time Status Last Admin (NS Flush) 2 ml BID IV FLUSH 12/06/16 21:00 12/16/16 09:53 (NS Flush) 2 ml UNSCH PRN IV FLUSH 12/06/16 11:45 (Aspirin Chew) 162 mg DAILY PO 12/07/16 09:00 12/15/16 08:18 (Keppra) 750 mg BID PO 12/06/16 21:00 12/16/16 09:53 (Pravachol) 40 mg DAILY PO 12/07/16 09:00 12/16/16 09:51 (Lexapro) 10 mg DAILY PO 12/09/16 13:00 12/16/16 09:53 (Protonix) 40 mg DAILY@06 PO 12/11/16 06:00 12/16/16 05:57 (Zofran Inj) 4 mg Q6H PRN IV PUSH 12/10/16 11:30 12/15/16 08:41 (Theragran M Tab) 1 tab DAILY PO 12/11/16 10:00 12/16/16 09:52 (Milk Of Magnesia Liq) 30 ml DAILY PO 12/11/16 10:00 12/14/16 09:09 (Miralax) 17 gm DAILY PO 12/12/16 09:00 12/14/16 09:09 (Fleets Enema (Adult)) 133 ml UNSCH PRN RECTAL 12/11/16 09:00 (D50w (Vial) Inj) 25 ml UNSCH PRN IV 12/11/16 09:00 (Glucagon Inj) 1 mg UNSCH PRN OTHER 12/11/16 09:00 (Pill Splitter) 1 ea UNSCH PRN OTHER 12/11/16 09:30 (NovoLOG SUPPLEMENTAL SCALE) 1 ACHS SQ 12/13/16 11:00 12/15/16 16:18 (Ultram) 50 mg Q6H PRN PO 12/14/16 12:15 12/15/16 16:18 (Msir) 15 mg Q4H PRN PO 12/14/16 13:15 12/16/16 09:52 (Colace) 100 mg BID PRN PO 12/15/16 08:45 (Senokot) 8.6 mg HS PRN PO 12/15/16 08:45 Vital Signs / I&O Vital Signs Date Time Temp Pulse Resp B/P Pulse Ox O2 Delivery O2 Flow Rate FiO2 12/16/16 07:37 97 Nasal Cannula 2.50 12/16/16 06:00 85 12/16/16 05:00 92 12/16/16 04:50 18 12/16/16 04:00 90 12/16/16 03:00 98 Nasal Cannula 3.00 12/16/16 03:00 97.5 104 20 111/67 98 12/16/16 03:00 90 12/16/16 02:00 90 12/16/16 01:00 87 12/16/16 00:00 93 12/15/16 23:00 100 Nasal Cannula 3.00 12/15/16 23:00 98.4 107 20 96/75 100 12/15/16 23:00 105 12/15/16 22:00 94 12/15/16 21:00 100 12/15/16 20:00 100 Nasal Cannula 3.00 12/15/16 20:00 98.0 108 20 118/64 100 12/15/16 20:00 96 12/15/16 19:17 97 Nasal Cannula 3.00 12/15/16 19:00 101 12/15/16 18:27 95 12/15/16 17:03 93 12/15/16 16:06 94 12/15/16 15:47 98 Nasal Cannula 2.00 12/15/16 15:47 110 12/15/16 15:30 97.8 81 20 110/65 98 12/15/16 14:04 100 12/15/16 13:00 94 12/15/16 12:19 92 12/15/16 11:49 97.9 95 18 131/64 99 12/15/16 11:00 96 12/15/16 11:00 99 Nasal Cannula 2.00 I/O 12/15/16 12/15/16 12/15/16 12/16/16 12/16/16 12/16/16 07:00 15:00 23:00 07:00 15:00 23:00 Intake Total 480 ml 725 ml 600 ml 480 ml Output Total 1200 ml 350 ml 150 ml 550 ml Balance -720 ml 375 ml 450 ml -70 ml Intake Oral 480 ml 625 ml 600 ml 480 ml IV Total 100 ml Output Urine Total 1200 ml 350 ml 150 ml 550 ml # Voids 1 1 # Bowel Movements 6 1 0 Physical Exam GENERAL: NAD, AAOx3 SKIN: Dry HEAD: Atraumatic. Normocephalic. EYES: Pupils equal and round. No scleral icterus. No injection or drainage. ENT: No nasal bleeding or discharge. Mucous membranes pink and moist. NECK: Trachea midline. No JVD. CARDIOVASCULAR: Irregularly irregular RESPIRATORY: No accessory muscle use. Decreased breath sounds bilaterally GASTROINTESTINAL: Abdomen soft, non-tender, nondistended. Hepatic and splenic margins not palpable. MUSCULOSKELETAL: Extremities without clubbing, cyanosis, or edema. NEUROLOGICAL: No focal deficits Laboratory Laboratory Tests Test 12/15/16 12/16/16 10:14 05:48 Stool C. difficile Toxin (PCR) NEGATIVE Stl C. difficile Toxin PRESUMPTIVE Epiderm 027 NEGATIVE White Blood Count 6.8 TH/MM3 Red Blood Count 3.83 MIL/MM3 Hemoglobin 11.5 GM/DL Hematocrit 32.6 % Mean Corpuscular Volume 85.2 FL Mean Corpuscular Hemoglobin 29.9 PG Mean Corpuscular Hemoglobin 35.1 % Concent Red Cell Distribution Width 13.9 % Platelet Count 289 TH/MM3 Mean Platelet Volume 9.6 FL Sodium Level 141 MEQ/L Potassium Level 3.7 MEQ/L Chloride Level 99 MEQ/L Carbon Dioxide Level 32.4 MEQ/L Anion Gap 10 MEQ/L Blood Urea Nitrogen 9 MG/DL Creatinine 0.67 MG/DL Estimat Glomerular Filtration 118 ML/MIN Rate Random Glucose 76 MG/DL Calcium Level 8.7 MG/DL Magnesium Level 2.0 MG/DL Assessment and Plan Problem List: (1) Multi-vessel coronary artery stenosis (2) Atrial fibrillation with RVR (3) NSTEMI (non-ST elevated myocardial infarction) (4) Hyperlipidemia (5) Diabetes mellitus, type II (6) History of seizure (7) Benign hypertension (8) Tobacco abuse (9) anxiety / depression (10) Chronic pain Assessment and Plan 1) MVCAD s/p CABG POD#6 BISWAS to LAD SVG to OM2 SVG to D1 2) EF 35-40%, mild to mod MR pre-operatively 3) Not a great halfway anticoagulation candidate due to multiple falls 4) ASA/Statin 5) Pain management, but seems lethargic with multiple pain meds 6) IS hourly 7) No further bradycardia, will plan to avoid Amiodarone, but may add back Beta- Radha if heart rate still borderline elevated, currently 80-95 bpms, will continue to follow Problem Qualifiers (1) Hyperlipidemia: Qualified Code: E78.00 - Pure hypercholesterolemia (2) Diabetes mellitus, type II: Qualified Code: E11.9 - Type 2 diabetes mellitus without complication, without long-term current use of insulin Saw Chairez DO Dec 16, 2016 10:13
--- NOTE | 2016-12-16 10:24 | HHI.PR ---
Subjective Remarks Returns to [facility] again. No further bradycardia right now. Rehab is continuing. Patient complains of posterior neck pain in addition to post op (CABG 12/10/16) pains. No other complaints. Objective Vital Signs Date Time Temp Pulse Resp B/P Pulse Ox O2 Delivery O2 Flow Rate FiO2 12/16/16 07:37 97 Nasal Cannula 2.50 12/16/16 06:00 85 12/16/16 05:00 92 12/16/16 04:50 18 12/16/16 04:00 90 12/16/16 03:00 98 Nasal Cannula 3.00 12/16/16 03:00 97.5 104 20 111/67 98 12/16/16 03:00 90 12/16/16 02:00 90 12/16/16 01:00 87 12/16/16 00:00 93 12/15/16 23:00 100 Nasal Cannula 3.00 12/15/16 23:00 98.4 107 20 96/75 100 12/15/16 23:00 105 12/15/16 22:00 94 12/15/16 21:00 100 12/15/16 20:00 100 Nasal Cannula 3.00 12/15/16 20:00 98.0 108 20 118/64 100 12/15/16 20:00 96 12/15/16 19:17 97 Nasal Cannula 3.00 12/15/16 19:00 101 12/15/16 18:27 95 12/15/16 17:03 93 12/15/16 16:06 94 12/15/16 15:47 98 Nasal Cannula 2.00 12/15/16 15:47 110 12/15/16 15:30 97.8 81 20 110/65 98 12/15/16 14:04 100 12/15/16 13:00 94 12/15/16 12:19 92 12/15/16 11:49 97.9 95 18 131/64 99 12/15/16 11:00 96 12/15/16 11:00 99 Nasal Cannula 2.00 I/O 12/15/16 12/15/16 12/15/16 12/16/16 12/16/16 12/16/16 07:00 15:00 23:00 07:00 15:00 23:00 Intake Total 480 ml 725 ml 600 ml 480 ml Output Total 1200 ml 350 ml 150 ml 550 ml Balance -720 ml 375 ml 450 ml -70 ml Intake Oral 480 ml 625 ml 600 ml 480 ml IV Total 100 ml Output Urine Total 1200 ml 350 ml 150 ml 550 ml # Voids 1 1 # Bowel Movements 6 1 0 Result Diagram: 12/16/16 0548 12/16/16 0548 Imaging Last Impressions Chest X-Ray 12/13/16 0700 Signed Impressions: Service Date/Time: Tuesday, December 13, 2016 07:29 - CONCLUSION: Pleural-parenchymal density right lower lobe with slight volume loss could be atelectasis and/or consolidation. Possible kink in left subclavian catheter may be at the skin. Riley Masterson MD Lower Extremity Ultrasound 12/07/16 0000 Signed Impressions: Service Date/Time: Wednesday, December 07, 2016 10:46 - CONCLUSION: No evidence of deep venous thrombosis within the lower extremities. Eduardo Morocho MD Carotid Artery Ultrasound 12/07/16 0000 Signed Impressions: Service Date/Time: Wednesday, December 07, 2016 11:15 - CONCLUSION: Mild heterogeneous plaque seen bilaterally in the carotid bifurcations. No evidence of hemodynamically significant stenosis. Billy Oliva MD Objective Remarks GENERAL: NAD, A&Ox3 SKIN: Warm and dry. HEAD: Normocephalic. EYES: No scleral icterus. No injection or drainage. Chronic visual deficit/ blindness. NECK: Supple, trachea midline. No JVD or lymphadenopathy. CARDIOVASCULAR: Regular rate and rhythm without murmurs, gallops, or rubs. Central Sternal Wound is bandaged with no erythema, no discharge, dry. RESPIRATORY: Breath sounds equal bilaterally. No accessory muscle use. GASTROINTESTINAL: Abdomen soft, non-tender, nondistended. MUSCULOSKELETAL: No cyanosis, or edema. BACK: Nontender without obvious deformity. No CVA tenderness. Medications and IVs Administered Medications Medications (Trade) Dose Ordered Sig/Romie Route PRN Reason Start Time Stop Time Status Last Admin Dose Admin Sodium Chloride (NS Flush) 2 ml BID IV FLUSH 12/06/16 21:00 12/16/16 09:53 Aspirin (Aspirin Chew) 162 mg DAILY PO 12/07/16 09:00 12/16/16 10:02 Levetriacetam (Keppra) 750 mg BID PO 12/06/16 21:00 12/16/16 09:53 Pravastatin Sodium (Pravachol) 40 mg DAILY PO 12/07/16 09:00 12/16/16 09:51 Escitalopram Oxalate (Lexapro) 10 mg DAILY PO 12/09/16 13:00 12/16/16 09:53 Pantoprazole Sodium (Protonix) 40 mg DAILY@06 PO 12/11/16 06:00 12/16/16 05:57 Ondansetron HCl (Zofran Inj) 4 mg Q6H PRN IV PUSH NAUSEA OR VOMITING 12/10/16 11:30 12/15/16 08:41 Multivitamins/ Minerals Therapeutic (Theragran M Tab) 1 tab DAILY PO 12/11/16 10:00 12/16/16 09:52 Magnesium Hydroxide (Milk Of Conchis Merida) 30 ml DAILY PO 12/11/16 10:00 12/14/16 09:09 Polyethylene Glycol (Miralax) 17 gm DAILY PO 12/12/16 09:00 12/14/16 09:09 Insulin Aspart (NovoLOG SUPPLEMENTAL SCALE) 1 ACHS SQ 12/13/16 11:00 12/15/16 16:18 Tramadol HCl (Ultram) 50 mg Q6H PRN PO PAIN 1-5 12/14/16 12:15 12/15/16 16:18 Morphine Sulfate (Msir) 15 mg Q4H PRN PO PAIN SCALE 6 TO 10 12/14/16 13:15 12/16/16 09:52 A/P Problem List: (1) Diabetes mellitus, type II ICD Code: E11.9 (2) Hyperlipidemia ICD Code: E78.5 (3) NSTEMI (non-ST elevated myocardial infarction) ICD Code: I21.4 (4) Atrial fibrillation with RVR ICD Code: I48.91 (5) History of seizure ICD Code: Z87.898 (6) Multi-vessel coronary artery stenosis ICD Code: I25.10 (7) Anxiety and depression ICD Code: F41.9 (8) Tobacco abuse ICD Code: Z72.0 (9) anxiety / depression (10) CAD (coronary artery disease) ICD Code: I25.10 (11) Chronic pain ICD Code: G89.29 Assessment and Plan Assessment and Plan 71 y/o male s/p CABG on 12/10/16 with history of a-fib, DM2 CAD S/P CABG CABGx3 on 12/10/16 Statin Aspirin Beta loreto Follow heart rate Follow BPs Cardiology following Incentive Spirometry Continue post op Rehab Status post NSTEMI Last echo shows an EF of 35% Now status post CABG Follow clinically for chest pain Cardiology following Atrial fibrillation RVR Now controlled Follow on telemetry Diabetes type 2 Diabetic Neuropathy Follow blood sugars Insulin Sliding Scale Diabetic Diet Follow neuropathy clinically, currently stable Hyperlipidemia Statin Follow as an outpatient Hypertension No change to treatment today Follow BP Stable for now Seizure disorder Continue Keppra Follow clinically Depressed mood Follow clinically Lexapro Psych consult if worsening or not improving Hypokalemia Replace and monitor. Tobacco abuse Off Nicotine now Not recommended to resume smoking in the future DVT prophylaxis SCDs given recent surgery Discharge Planning Plan for SNF at discharge Problem Qualifiers (1) Diabetes mellitus, type II: Qualified Code: E11.9 - Type 2 diabetes mellitus without complication, without long-term current use of insulin (2) Hyperlipidemia: Qualified Code: E78.00 - Pure hypercholesterolemia Tyler Carvajal MD Dec 16, 2016 10:24
[2016-12-16] MEDS: NAPROXEN 250 MG TAB PO SCH ×2 (13:46→21:35)
--- NOTE | 2016-12-16 13:48 | EKG ---
Date Performed: 12/16/2016 Time Performed: 10:12:14 PTAGE: 71 years EKG: Marked baseline artifact present Probable ventricular pacemaker I cannot accurately compare given artifact PREVIOUS TRACING : 12/11/2016 04.39 DOCTOR: Ezio Park Interpretating Date/Time 12/16/2016 13:46:00
[2016-12-16] MEDS: traMADol HCL 50 MG TAB PO PRN (19:45)
[2016-12-16] MEDS: BUDESONIDE-FORMOTEROL 160/4.5 MCG INHALER INH SCH ×2 (21:00→21:36)
[2016-12-17] VITALS (12 sets, daily range): BP systolic 112–120; BP diastolic 70–76; PULSE 74–110; RESP 18–20; TEMP 97.5–98.2; O2SAT 93–98
[2016-12-17] MEDS: traMADol HCL 50 MG TAB PO PRN (01:22)
[2016-12-17] MEDS: INSULIN ASPART SUPPLEMENTAL SCALE SQ SCH ×2 (06:11→13:31)
[2016-12-17] MEDS: PANTOPRAZOLE SOD 40 MG DELAYED RELEASE TAB PO SCH (06:11)
[2016-12-17 07:00] LABS: HEMATOCRIT 35.5 % (39.0-51.0); MEAN CELL VOLUME 85.8 FL (80.0-100.0); MEAN CORPUSCULAR HEMOGLOBIN 29.6 PG (27.0-34.0); MEAN CORPUSCULAR HGB CONC 34.5 % (32.0-36.0); PLATELET COUNT 316 TH/MM3 (150-450); RED BLOOD COUNT 4.14 MIL/MM3 (4.50-5.90); RED CELL DISTRIBUTION WIDTH 13.9 % (11.6-17.2); REVIEW FLAG FINAL
[2016-12-17] MEDS: RESP: ALBUTEROL 2.5 MG/IPRATROPIUM 0.5 MG NEB (SCH) NEB ×2 (07:22→12:51)
[2016-12-17 07:25] LABS: POTASSIUM 3.8 MEQ/L (3.5-5.1)
[2016-12-17] MEDS ORDERED: POTASSIUM CHLORIDE 20 MEQ CONTROLLED RELEASE TAB PO ONE (08:30)
[2016-12-17] MEDS ORDERED: LISINOPRIL 5 MG TAB PO SCH (09:00)
[2016-12-17] MEDS: POLYETHYLENE GLYCOL 17 GM PKG PO SCH (09:41)
[2016-12-17] MEDS: MAGNESIUM HYDROXIDE SUSP 30 ML CUP PO SCH (09:41)
[2016-12-17] MEDS: BUDESONIDE-FORMOTEROL 160/4.5 MCG INHALER INH SCH (09:50)
[2016-12-17] MEDS: SODIUM CHLORIDE 0.9% FLUSH 10 ML FLUSH IV FLUSH SCH (09:50)
[2016-12-17] MEDS: ASPIRIN 81 MG CHEW TAB PO SCH (09:50)
[2016-12-17] MEDS: levETIRAcetam 250 MG TAB PO SCH (09:51)
[2016-12-17] MEDS: NAPROXEN 250 MG TAB PO SCH (09:51)
[2016-12-17] MEDS: PRAVASTATIN SOD 40 MG TAB PO SCH (09:52)
[2016-12-17] MEDS: MULTIVITAMINS/MINERALS THERAPEUTIC TAB PO SCH (09:52)
[2016-12-17] MEDS: ESCITALOPRAM OXALATE 10 MG TAB PO SCH (09:52)
--- NOTE | 2016-12-17 11:27 | HHI.PR ---
Subjective Remarks Remains stable in [facility] without bradycardia or arrhythmias. Tolerating rehab. Returns to [facility] again. No other complaints today. Objective Vital Signs Date Time Temp Pulse Resp B/P Pulse Ox O2 Delivery O2 Flow Rate FiO2 12/17/16 07:28 96 Nasal Cannula 2.00 12/17/16 05:00 81 12/17/16 04:00 74 12/17/16 03:03 96 Nasal Cannula 1.50 12/17/16 03:03 98.2 79 20 118/73 96 12/17/16 03:00 80 12/17/16 02:00 74 12/17/16 01:00 82 12/17/16 00:00 78 12/16/16 23:22 18 12/16/16 23:05 98.5 76 20 103/72 96 12/16/16 23:05 96 Nasal Cannula 1.50 12/16/16 23:00 79 12/16/16 22:00 80 12/16/16 21:00 78 12/16/16 20:50 18 12/16/16 20:00 76 12/16/16 19:01 98.2 86 20 119/76 96 12/16/16 19:01 96 Nasal Cannula 1.50 12/16/16 19:00 111 12/16/16 18:00 94 12/16/16 17:00 106 12/16/16 16:33 87 12/16/16 15:20 89 12/16/16 15:20 91 16 99/66 94 12/16/16 15:20 94 Nasal Cannula 1.50 12/16/16 14:00 97 12/16/16 13:01 93 12/16/16 12:00 86 I/O 12/16/16 12/16/16 12/16/16 12/17/16 12/17/16 12/17/16 07:00 15:00 23:00 07:00 15:00 23:00 Intake Total 480 ml 960 ml 1000 ml Output Total 550 ml 700 ml 700 ml Balance -70 ml 260 ml 300 ml Intake Oral 480 ml 960 ml 1000 ml Output Urine Total 550 ml 700 ml 700 ml # Voids 1 # Bowel Movements 0 1 Result Diagram: 12/17/1652712/17/16527 Objective Remarks GENERAL: NAD, A&Ox3 SKIN: Warm and dry. HEAD: Normocephalic. EYES: No scleral icterus. No injection or drainage. Chronic visual deficit/ blindness. NECK: Supple, trachea midline. No JVD or lymphadenopathy. CARDIOVASCULAR: Regular rate and rhythm without murmurs, gallops, or rubs. Central Sternal Wound is bandaged with no erythema, no discharge, dry. RESPIRATORY: Breath sounds equal bilaterally. No accessory muscle use. GASTROINTESTINAL: Abdomen soft, non-tender, nondistended. MUSCULOSKELETAL: No cyanosis, or edema. BACK: Nontender without obvious deformity. No CVA tenderness. A/P Problem List: (1) Diabetes mellitus, type II ICD Code: E11.9 (2) Hyperlipidemia ICD Code: E78.5 (3) NSTEMI (non-ST elevated myocardial infarction) ICD Code: I21.4 (4) Atrial fibrillation with RVR ICD Code: I48.91 (5) History of seizure ICD Code: Z87.898 (6) Multi-vessel coronary artery stenosis ICD Code: I25.10 (7) Anxiety and depression ICD Code: F41.9 (8) Tobacco abuse ICD Code: Z72.0 (9) anxiety / depression (10) CAD (coronary artery disease) ICD Code: I25.10 (11) Chronic pain ICD Code: G89.29 Assessment and Plan Assessment and Plan 71 y/o male s/p CABG on 12/10/16 with history of a-fib, DM2 CAD S/P CABG Healing well PT to continue post op as part of recovery CABGx3 on 12/10/16 Statin Aspirin Beta loreto Follow heart rate Follow BPs Cardiology following Incentive Spirometry Status post NSTEMI Last echo shows an EF of 35% Now status post CABG Follow clinically for chest pain Cardiology following Atrial fibrillation RVR Now controlled Follow on telemetry Diabetes type 2 Diabetic Neuropathy Follow blood sugars Insulin Sliding Scale Diabetic Diet Follow neuropathy clinically, currently stable Hyperlipidemia Statin Follow as an outpatient Hypertension No change to treatment today Follow BP Stable for now Seizure disorder No seizures Continue Keppra Follow clinically Depressed mood Follow clinically Lexapro Psych consult if worsening or not improving Hypokalemia Replace and monitor. Tobacco abuse Off Nicotine now Not recommended to resume smoking in the future DVT prophylaxis SCDs given recent surgery Discharge Planning Plan for Rehab at discharge Problem Qualifiers (1) Diabetes mellitus, type II: Qualified Code: E11.9 - Type 2 diabetes mellitus without complication, without long-term current use of insulin (2) Hyperlipidemia: Qualified Code: E78.00 - Pure hypercholesterolemia Tyler Carvajal MD Dec 17, 2016 11:27
--- NOTE | 2016-12-17 11:32 | PD.CARD.PN ---
Subjective Subjective Remarks No chest pain, no shortness of breath Heart rates controlled Objective Medications Current Medications Medications (Trade) Dose Ordered Sig/Romie Route Start Time Stop Time Status Last Admin (NS Flush) 2 ml BID IV FLUSH 12/06/16 21:00 12/17/16 09:50 (NS Flush) 2 ml UNSCH PRN IV FLUSH 12/06/16 11:45 (Aspirin Chew) 162 mg DAILY PO 12/07/16 09:00 12/17/16 09:50 (Keppra) 750 mg BID PO 12/06/16 21:00 12/17/16 09:51 (Pravachol) 40 mg DAILY PO 12/07/16 09:00 12/17/16 09:52 (Lexapro) 10 mg DAILY PO 12/09/16 13:00 12/17/16 09:52 (Protonix) 40 mg DAILY@06 PO 12/11/16 06:00 12/17/16 06:11 (Zofran Inj) 4 mg Q6H PRN IV PUSH 12/10/16 11:30 12/15/16 08:41 (Theragran M Tab) 1 tab DAILY PO 12/11/16 10:00 12/17/16 09:52 (Milk Of Magnesia Liq) 30 ml DAILY PO 12/11/16 10:00 12/17/16 09:41 (Miralax) 17 gm DAILY PO 12/12/16 09:00 12/17/16 09:41 (Fleets Enema (Adult)) 133 ml UNSCH PRN RECTAL 12/11/16 09:00 (D50w (Vial) Inj) 25 ml UNSCH PRN IV 12/11/16 09:00 (Glucagon Inj) 1 mg UNSCH PRN OTHER 12/11/16 09:00 (Pill Splitter) 1 ea UNSCH PRN OTHER 12/11/16 09:30 (NovoLOG SUPPLEMENTAL SCALE) 1 ACHS SQ 12/13/16 11:00 12/16/16 21:00 (Ultram) 50 mg Q6H PRN PO 12/14/16 12:15 12/17/16 01:22 (Colace) 100 mg BID PRN PO 12/15/16 08:45 (Senokot) 8.6 mg HS PRN PO 12/15/16 08:45 (Symbicort 160-4.5 Inh) 2 puff Q12HR INH 12/16/16 11:30 12/17/16 09:50 (Naprosyn) 250 mg Q12HR PO 12/16/16 11:30 12/17/16 09:51 (Roxicodone) 5 mg Q4H PRN PO 12/16/16 11:30 12/17/16 07:01 (Prinivil) 2.5 mg DAILY PO 12/17/16 09:00 12/17/16 09:52 Vital Signs / I&O Vital Signs Date Time Temp Pulse Resp B/P Pulse Ox O2 Delivery O2 Flow Rate FiO2 12/17/16 07:28 96 Nasal Cannula 2.00 12/17/16 05:00 81 12/17/16 04:00 74 12/17/16 03:03 96 Nasal Cannula 1.50 12/17/16 03:03 98.2 79 20 118/73 96 12/17/16 03:00 80 12/17/16 02:00 74 12/17/16 01:00 82 12/17/16 00:00 78 12/16/16 23:22 18 12/16/16 23:05 98.5 76 20 103/72 96 12/16/16 23:05 96 Nasal Cannula 1.50 12/16/16 23:00 79 12/16/16 22:00 80 12/16/16 21:00 78 12/16/16 20:50 18 12/16/16 20:00 76 12/16/16 19:01 98.2 86 20 119/76 96 12/16/16 19:01 96 Nasal Cannula 1.50 12/16/16 19:00 111 12/16/16 18:00 94 12/16/16 17:00 106 12/16/16 16:33 87 12/16/16 15:20 89 12/16/16 15:20 91 16 99/66 94 12/16/16 15:20 94 Nasal Cannula 1.50 12/16/16 14:00 97 12/16/16 13:01 93 12/16/16 12:00 86 I/O 12/16/16 12/16/16 12/16/16 12/17/16 12/17/16 12/17/16 07:00 15:00 23:00 07:00 15:00 23:00 Intake Total 480 ml 960 ml 1000 ml Output Total 550 ml 700 ml 700 ml Balance -70 ml 260 ml 300 ml Intake Oral 480 ml 960 ml 1000 ml Output Urine Total 550 ml 700 ml 700 ml # Voids 1 # Bowel Movements 0 1 Physical Exam GENERAL: NAD, AAOx3 SKIN: Dry HEAD: Atraumatic. Normocephalic. EYES: Pupils equal and round. No scleral icterus. No injection or drainage. ENT: No nasal bleeding or discharge. Mucous membranes pink and moist. NECK: Trachea midline. No JVD. CARDIOVASCULAR: Irregularly irregular RESPIRATORY: No accessory muscle use. Decreased breath sounds bilaterally GASTROINTESTINAL: Abdomen soft, non-tender, nondistended. Hepatic and splenic margins not palpable. MUSCULOSKELETAL: Extremities without clubbing, cyanosis, or edema. NEUROLOGICAL: No focal deficits Laboratory Laboratory Tests Test 4/ 05:28 White Blood Count 7.0 TH/MM3 Red Blood Count 4.14 MIL/MM3 Hemoglobin 12.2 GM/DL Hematocrit 35.5 % Mean Corpuscular Volume 85.8 FL Mean Corpuscular Hemoglobin 29.6 PG Mean Corpuscular Hemoglobin 34.5 % Concent Red Cell Distribution Width 13.9 % Platelet Count 316 TH/MM3 Mean Platelet Volume 10.1 FL Sodium Level 137 MEQ/L Potassium Level 3.8 MEQ/L Chloride Level 98 MEQ/L Carbon Dioxide Level 31.0 MEQ/L Anion Gap 8 MEQ/L Blood Urea Nitrogen 12 MG/DL Creatinine 0.76 MG/DL Estimat Glomerular Filtration 102 ML/MIN Rate Random Glucose 85 MG/DL Calcium Level 8.7 MG/DL Assessment and Plan Problem List: (1) Multi-vessel coronary artery stenosis (2) Atrial fibrillation with RVR (3) NSTEMI (non-ST elevated myocardial infarction) (4) Hyperlipidemia (5) Diabetes mellitus, type II (6) History of seizure (7) Benign hypertension (8) Tobacco abuse (9) anxiety / depression (10) Chronic pain Assessment and Plan 1) MVCAD s/p CABG POD#7 BISWAS to LAD SVG to OM2 SVG to D1 2) EF 35-40%, mild to mod MR pre-operatively 3) 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
[2016-12-17] MEDS ORDERED: ESCI10TA PO (13:26)
[2016-12-17] MEDS ORDERED: LISI-519 PO (13:26)
[2016-12-17] MEDS ORDERED: SYMB160A INH (13:26)
[2016-12-17] MEDS ORDERED: NAPR250T57 PO (13:26)
[2016-12-17] MEDS ORDERED: THERM PO (13:26)
[2016-12-17] MEDS ORDERED: DOCU1CAP39 PO (13:26)
[2016-12-17] MEDS ORDERED: VENTAER INH (13:28)
--- NOTE | 2016-12-17 13:40 | HHI.DS ---
Discharge Summary Admission Date Dec 06, 2016 at 11:15 Discharge Date: Dec 17, 2016 Admitting Diagnosis NSTEMI, Afib RVR (1) Multi-vessel coronary artery stenosis (2) NSTEMI (non-ST elevated myocardial infarction) Diagnosis: Principal (3) Atrial fibrillation with RVR Diagnosis: Principal (4) Diabetes mellitus, type II Diagnosis: Principal (5) Benign hypertension Diagnosis: Principal (6) Hyperlipidemia Diagnosis: Principal (7) Hypokalemia Diagnosis: Principal (8) History of seizure Diagnosis: Principal (9) Anxiety and depression Diagnosis: Principal (10) S/P CABG x 3 Diagnosis: Secondary Procedures Urgent CABG x 3 12/10 BISWAS to LAD - good SVG to OM2 - good SVG to D1 - good EVH Brief History 71/ male / [facility] pt admitted for chest pain / HX CAD/ prior SD / admit with NSTEMI / s/p heart cath multi vessel disease. 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/ anxiety depression , HTN, afib, DM pt had short 2- 3 second pauses preop was placed on amiodarone and BB postop developed heart block in 30's symptomatic , received atropine and calcium chloride transferred back to CVICU postop, where he recovered without further intervention amiodarone and BB all discontinued / no NOAC or coumadin due to high risk of fall pt has hx chronic pain , was on scheduled morphine at home, but was too sedated postop meds were changed to prn only CBC/BMP: 12/17/16 0528 12/17/16 0528 Significant Findings Laboratory Tests Test 12/15/16 12/16/16 12/17/16 05:50 05:48 05:28 Red Blood Count 3.91 MIL/MM3 3.83 MIL/MM3 4.14 MIL/MM3 (4.50-5.90) (4.50-5.90) (4.50-5.90) Hemoglobin 11.2 GM/DL 11.5 GM/DL 12.2 GM/DL (13.0-17.0) (13.0-17.0) (13.0-17.0) Hematocrit 33.4 % 32.6 % 35.5 % (39.0-51.0) (39.0-51.0) (39.0-51.0) Chloride Level 96 MEQ/L (98-107) Carbon Dioxide Level 35.2 MEQ/L 32.4 MEQ/L (21.0-32.0) (21.0-32.0) Random Glucose 107 MG/DL (74-106) Calcium Level 8.2 MG/DL (8.5-10.1) Imaging Last Impressions Chest X-Ray 12/13/16 0700 Signed Impressions: Service Date/Time: Tuesday, December 13, 2016 07:29 - CONCLUSION: Pleural-parenchymal density right lower lobe with slight volume loss could be atelectasis and/or consolidation. Possible kink in left subclavian catheter may be at the skin. Riley Masterson MD Lower Extremity Ultrasound 12/07/16 0000 Signed Impressions: Service Date/Time: Wednesday, December 07, 2016 10:46 - CONCLUSION: No evidence of deep venous thrombosis within the lower extremities. Eduardo Morocho MD Carotid Artery Ultrasound 12/07/16 0000 Signed Impressions: Service Date/Time: Wednesday, December 07, 2016 11:15 - CONCLUSION: Mild heterogeneous plaque seen bilaterally in the carotid bifurcations. No evidence of hemodynamically significant stenosis. Billy Oliva MD PE at Discharge GENERAL: SKIN: Warm and dry.incision intact to chest , well approximated, leg incision intact HEAD: Normocephalic. EYES: No scleral icterus. No injection or drainage. NECK: Supple, trachea midline. No JVD or lymphadenopathy. CARDIOVASCULAR: irregular rate and rhythm without murmurs, gallops, or rubs. RESPIRATORY: Breath sounds equal bilaterally. diminished in bases No accessory muscle use. GASTROINTESTINAL: Abdomen soft, non-tender, nondistended. MUSCULOSKELETAL: No cyanosis, or edema. BACK: Nontender without obvious deformity. No CVA tenderness. Hospital Course 12/07 pt on Heparin and imdur, statin, ASA pain free, tentatively scheduled for surgery on Friday 12/08 pt developed midsternal chest pain this am 810 now 08/31, received morphine and started on NTG gtt remains on NTG gtt scheduled for surgery on Tuesday / remains in Afib rate controlled, some occasional 2-3 sec pauses 12/09 no further chest pain, c/o feeling depressed agreeable for surgery in am on Heparin gtt OR in am 12/10 Procedure: Urgent CABG x 3 BISWAS to LAD - good SVG to OM2 - good SVG to D1 - good EVH 12/11 Doing well Incisional pain Needs pulmonary toiletry Transfer [facility] 12/12 Doing well D/C CT today 12/13 on nasal cannula/ poor cough effort congested / CXR noted right lower lobe infiltrate continue nebs/ ezpap/ acapella will need antony when tolerates, 12/14 pt remains in Afib rate controlled / poor candidate for NOAC or coumadin 09/23 high risk for falls pt c/o of pain , however sleepy , but improved from yesterday aggressive pulm toileting, ambulate, IS hold on further diuresis , BP labile , hold on ANTONY decrease amiodarone dose will need rehab placement 12/15 pt more awake , remains in afib, no further bradycardia x 24 hrs + diarrhea last pm, Gi motility meds changed to prn check stool for cdiff transfer back to [facility] stepdown eval for rehab placement 12/16 sleepy this am, despite saying he slept ok last night will dc morphine IR and change to oxycodone prn stool neg for cdiff, no more diarrhea remains in afib rate controlled, not a candidate for NOAC or coumadin start ANTONY when BP tolerates eval for dc to rehab 12/17 pt more awake remains in afib, rate controlled low dose antony started for EF 35% Pt Condition on Discharge: Fair Discharge Disposition: Discharge to SNF Discharge Instructions DIET: Follow Instructions for: Heart Healthy Diet Activities you can perform: Weight Bearing as Michelle, Shower Only-No Bath Activities to avoid: Prolonged Standing, Strenuous Activity Additional Activity Instructio: no lifting > 8 lbs pt is legally blind Follow up Referrals: Appointment for Follow Up Appointment for Follow Up PCP Follow-up - 2 Weeks with [facility] New Orders: BASIC METABOLIC PROF - 2 Weeks CBC NO DIFF - 2 Weeks X-RAY CHEST PA & LAT - 2 Weeks New Medications: Albuterol 18 GM Inh (Ventolin Hfa 18 GM Inh) 90 Mcg/Act Aer 2 PUFF INH Q4-6H PRN SHORTNESS OF BREATH #1 Ref 1 INHALER Budesonide-Formoterol Inh (Symbicort Inh) 160-4.5 Mcg/Act Aero 2 PUFF INH Q12HR COPD #1 Ref 1 INHALER Docusate Sodium (Dok) 100 Mg Cap 100 MG PO BID PRN CONSTIPATION #60 CAP Escitalopram (Escitalopram) 10 Mg Tab 10 MG PO DAILY depression #30 Ref 1 TAB Lisinopril (Lisinopril) 5 Mg Tab 2.5 MG PO DAILY Blood Pressure Management #30 Ref 1 TAB Multiple Vitamins W/ Minerals (Thera M Plus) 1 Tab 1 TAB PO DAILY multi vitamin #30 TAB Naproxen (Naprosyn) 250 Mg Tab 250 MG PO Q12HR PRN PAIN SCALE 1 TO 3 #60 Ref 0 TAB Continued Medications: Aspirin (Aspirin) 81 Mg Chew 81 MG CHEW ONCE #1 Ref 0 TAB Cholecalciferol (D-2000 Maximum Strength) 2,000 Unit Tab 2000 UNITS PO DAILY Nutritional Supplement #30 Ref 0 TAB Cyanocobalamin (Vitamin B-12) 1,000 Mcg Subl 1000 MCG SL DAILY Nutritional Supplement Ref 0 TAB.SL Folic Acid (Folate) 1 Mg Tab 1 MG PO DAILY Nutritional Supplement Ref 0 TAB Latanoprost Opth Drops (Xalatan Opth Drops) 0.005% Drops 1 DROP EACH EYE HS Glaucoma #2.5 Ref 0 ML Levetiracetam (Levetiracetam) 750 Mg Tab 750 MG PO BID Control Seizures #60 Ref 0 TAB Magnesium Oxide (Magnesium Oxide) 400 Mg Tab 400 MG PO DAILY Nutritional Supplement Ref 0 TAB Pravastatin (Pravastatin) 40 Mg Tab 40 MG PO DAILY Cholesterol Management #30 Ref 0 TAB Ranitidine (Ranitidine) 150 Mg Tab 150 MG PO DAILY Heartburn Management #30 Ref 0 TAB Discontinued Medications: Diltiazem CD 24 HR (Diltiazem CD 24 HR) 180 Mg Caper 180 MG PO DAILY #30 Ref 0 CAP Fluoxetine (Prozac) 20 Mg Cap 20 MG PO DAILY #30 Ref 0 CAP Isosorbide Mononitrate ER (Isosorbide Mononitrate ER) 30 Mg Blane 30 MG PO DAILY Prevent Chest Pain #30 Ref 0 TAB Lamotrigine (Lamotrigine) 150 Mg Tab 150 MG PO BID Control Seizures #30 Ref 0 TAB Mirtazapine (Remeron) 30 Mg Tab 30 MG PO HS Depression Control #30 Ref 0 TAB Morphine ER (Morphine ER) 30 Mg Tab 30 MG PO BID Pain Management Ref 0 TAB Morphine IR (Morphine IR) 15 Mg Tab 15 MG PO Q6HR PRN PAIN Ref 0 TAB Naproxen EC (Naproxen EC) 500 Mg Tabdr Nitroglycerin SL (Nitrostat SL) 0.4 Mg Subl 0.4 MG SL DIRECTED 1 tablet under the tongue as needed for chest pain. Repeat every 5 minutes for a total of 3 DOSES or call 911 if NO relief. PRN CHEST PAIN #100 Ref 0 TAB.SL Potassium Chloride ER (Potassium Chloride ER) 20 Meq Tab 20 MEQ PO DAILY Electrolyte Replacement #30 Ref 0 TAB Shamika Stallworth Dec 17, 2016 13:40
== END 2016-12-17 15:35 | DRG 234 ==
LOC: NEPC 09:37 → NEDA 11:15 → HCIN 16:59 → HCIS 12-10 07:45 → HCVR 12-10 12:10 → HCIS 12-11 21:57 → HCIN 12-13 16:43 → HCVR 12-14 12:30 → HCIN 12-15 10:59
PROVIDERS: ADMIT Hospitalist; ATTEND Hospitalist
PROC: 4A023N7 Measurement of Cardiac Sampling and Pressure, Left Heart, Percutaneous Approach (ICD-10-PCS; 2016-12-06)
PROC: B2111ZZ Fluoroscopy of Multiple Coronary Arteries using Low Osmolar Contrast (ICD-10-PCS; 2016-12-06)
PROC: 4A033BC Measurement of Arterial Pressure, Coronary, Percutaneous Approach (ICD-10-PCS; 2016-12-06)
PROC: 02100Z9 Bypass Coronary Artery, One Artery from Left Internal Mammary, Open Approach (ICD-10-PCS; 2016-12-10)
PROC: 06BQ4ZZ Excision of Left Saphenous Vein, Percutaneous Endoscopic Approach (ICD-10-PCS; 2016-12-10)
PROC: 5A1221Z Performance of Cardiac Output, Continuous (ICD-10-PCS; 2016-12-10)
PROC: 021109W Bypass Coronary Artery, Two Arteries from Aorta with Autologous Venous Tissue, Open Approach (ICD-10-PCS; principal; 2016-12-10 07:34)
DX: I21.4 Non-ST elevation (NSTEMI) myocardial infarction (principal); E11.40 Type 2 diabetes mellitus with diabetic neuropathy, unspecified; H47.611 Cortical blindness, right side of brain; F32.1 Major depressive disorder, single episode, moderate; I48.0 Paroxysmal atrial fibrillation; G40.909 Epilepsy, unspecified, not intractable, without status epilepticus; D47.2 Monoclonal gammopathy; H33.22 Serous retinal detachment, left eye; J98.11 Atelectasis; F32.9 Major depressive disorder, single episode, unspecified; H47.612 Cortical blindness, left side of brain; E78.5 Hyperlipidemia, unspecified; E87.6 Hypokalemia; I25.2 Old myocardial infarction; J44.9 Chronic obstructive pulmonary disease, unspecified; I25.10 Atherosclerotic heart disease of native coronary artery without angina pectoris; I69.398 Other sequelae of cerebral infarction; K21.9 Gastro-esophageal reflux disease without esophagitis; M19.90 Unspecified osteoarthritis, unspecified site; G47.00 Insomnia, unspecified; R29.6 Repeated falls; E78.00 Pure hypercholesterolemia, unspecified; G89.29 Other chronic pain; F17.210 Nicotine dependence, cigarettes, uncomplicated; F41.9 Anxiety disorder, unspecified; Z79.891 Long term (current) use of opiate analgesic; Z82.49 Family history of ischemic heart disease and other diseases of the circulatory system; Z88.6 Allergy status to analgesic agent
CPT/HCPCS: 36430; 71010; 76937; 80048; 80053; 80061; 80177; 81001; 82550; 82948; 83036; 83735; 83880; 84132; 84484; 85014; 85025; 85027; 85610; 85730; 86850; 86900; 86901; 86920; 87493; 87641; 93005; 93306; 93318; 93454; 93571; 93880; 93970; 93998; 94002; 94003; 94010; 94150; 94640; 94664; 94667; 94668; 96360; 96374; 96376; C1769; C1887; C1893; C9248; J0282; J0461; J0690; J1265; J1644; J1815; J1940; J2150; J2250; J2270; J2405; J2440; J2710; J2720; J2765; J2930; J3010; J3370; J3475; J3480; J7030; J7040; J7050; P9016; P9047; Q9967

== ENCOUNTER 2017-05-18 07:51 | Inpatient (IN) | payer OTHER, MEDICARE ==
[~2017-05-18] VITALS: Ht 177.8 cm; Wt 81.9 kg
[2017-05-18] VITALS (7 sets, daily range): BP systolic 104–135; BP diastolic 60–86; PULSE 83–122; RESP 12–20; TEMP 97.5–98.4; O2SAT 97–100
[~2017-05-18 07:51] MED LIST changes: -ASPI81 PO; +ASPI81CH CHEW; +D-20TAB3 PO; -DILT180C PO; +DOCU1CAP39 PO; +ESCI10TA PO; -FOLI1TAB PO; +FOLI1TAB4 PO; -ISOS30TA17 PO; -KLOR20TA6 PO; -LAMO150T PO; +LATA.005%O EACH EYE; -LEVE500 PO; +LEVE750T8 PO; +LISI-519 PO; -MAGN400 PO; +MAGN400T2 PO; -MORP30SU PO; -MSIR15 PO; +NAPR250T57 PO; -NAPR500 PO; -NITR.4 SL; -PRAV40TA PO; +PRAV40TA2 PO; -PROZ20CA11 PO; +RANI150T PO; -RANI300T PO; -REME30TA PO; +SYMB160A INH; +THERM PO; +VENTAER INH; -VITA-13 PO; -VITA10002 PO; +VITA100021 SL; -XALA0.00 EACH EYE; -[UNRECOGNIZED DRUG - CODE] TOP
[2017-05-18] MEDS ORDERED: ASPIRIN 81 MG CHEW TAB PO ONE (08:15)
[2017-05-18] MEDS ORDERED: NITROGLYCERIN 2% OINT 1 GM PACKET TOP ONE (08:15)
[2017-05-18] MEDS ORDERED: SODIUM CHLORIDE 0.9% FLUSH 10 ML FLUSH IVF PRN (08:15)
--- NOTE | 2017-05-18 08:16 | PD ---
HPI . Chest pain Chief Complaint: Fall Time Seen by Provider: 08:03 Travel History International Travel<30 days: No Contact w/Intl Traveler<30days: No Traveled to known affect area: No History of Present Illness HPI This patient presents to us via EVAC status post fall. The patient states that he awakened this morning with chest pain. He describes a dull chest discomfort which does not radiate. It is associated with nausea and diaphoresis. No modifying factor. Patient reports a previous operation because of his heart. He states that he went outside of his apartment to try to find help with his chest pain and stumbled down a flight of stairs. He reportedly fell down 13 steps. He did strike his head. He denies loss of consciousness. He comes in complaining with bilateral knee pain, bilateral hand pain and low back pain which he rates 10/10. PFSH Past Medical History Hx Anticoagulant Therapy: No Arthritis: Yes Asthma: No Atrial Fibrillation: Yes Autoimmune Disease: No Anxiety: Yes Depression: Yes Cancer: No Cardiovascular Problems: Yes (A-FIB) High Cholesterol: Yes Chemotherapy: No Chest Pain: Yes Cerebrovascular Accident: Yes Coronary Artery Disease: Yes Diabetes: Yes (DIET CONTROLLED) Diminished Hearing: No Endocrine: Yes Gastrointestinal Disorders: No GERD: Yes Genitourinary: No Headaches: Yes Hepatitis: No Hiatal Hernia: No Hypertension: Yes Immune Disorder: No Implanted Vascular Access Dvce: No Kidney Stones: No Musculoskeletal: Yes Neurologic: Yes Psychiatric: No Reproductive: No Respiratory: No Immunizations Current: No Migraines: Yes Myocardial Infarction: Yes Seizures: Yes Thyroid Disease: No Ulcer: No Past Surgical History Abdominal Surgery: No AICD: No Cardiac Surgery: No Ear Surgery: No Endocrine Surgery: No Eye Surgery: Yes (CATARACT SURGERY L EYE) Genitourinary Surgery: No Gynecologic Surgery: No Joint Replacement: No Oral Surgery: No Pacemaker: No Thoracic Surgery: No Family History Family Hypercholesterolemia: Yes Social History Alcohol Use: Yes (RARE) Tobacco Use: Yes (1.5 PPD/ TRYING TO CUT BACK ) Substance Use: No Allergies-Medications (Allergen,Severity, Reaction): Coded Allergies: acetaminophen (Unverified Allergy, Severe, STATES DOCTOR SAID NOT TO TAKE IT., 04/05/17) simvastatin (Unverified Allergy, Severe, 04/05/17) PT STATES NOT ALLERGIC Reported Meds & Prescriptions Reported Meds & Active Scripts Active Ventolin Hfa 18 GM Inh (Albuterol Sulfate) 90 Mcg/Act Aer 2 Puff INH Q4-6H PRN Naprosyn (Naproxen) 250 Mg Tab 250 Mg PO Q12HR PRN Thera M Plus (Multivitamins/Minerals Therapeutic) 1 Tab 1 Tab PO DAILY Lisinopril 5 Mg Tab 2.5 Mg PO DAILY Escitalopram (Escitalopram Oxalate) 10 Mg Tab 10 Mg PO DAILY Dok (Docusate Sodium) 100 Mg Cap 100 Mg PO BID PRN Symbicort Inh (Budesonide/Formoterol Fumarate) 160-4.5 Mcg/Act Aero 2 Puff INH Q12HR Reported Xalatan Opth Drops (Latanoprost) 0.005% Drops 1 Drop EACH EYE HS Magnesium Oxide 400 Mg Tab 400 Mg PO DAILY Ranitidine (Ranitidine HCl) 150 Mg Tab 150 Mg PO DAILY Folate (Folic Acid) 1 Mg Tab 1 Mg PO DAILY Pravastatin 40 Mg Tab 40 Mg PO DAILY Levetiracetam 750 Mg Tab 750 Mg PO BID Vitamin B-12 (Cyanocobalamin) 1,000 Mcg Subl 1,000 Mcg SL DAILY D-2000 Maximum Strength (Cholecalciferol) 2,000 Unit Tab 2,000 Units PO DAILY Aspirin 81 Mg Chew 81 Mg CHEW ONCE Review of Systems Except as stated in HPI: all other systems reviewed are Neg General / Constitutional: No: Fever, Chills Eyes: Positive: Blindness HENT: No: Headaches, Lightheadedness Cardiovascular: Positive: Chest Pain or Discomfort Respiratory: No: Shortness of Breath Gastrointestinal: Positive: Nausea, No: Vomiting Musculoskeletal: Positive: Pain (bilateral knee, bilateral hand and low back pain) Skin: Positive Other (scattered abrasions) Physical Exam Narrative GENERAL: The patient speaks with slow, deliberate words. He is covered with dirt and sand. SKIN: warm/dry. He has some scattered abrasions compatible with the reported history of a fall down the stairs. He also has some bruising to his left knee. HEAD: Normocephalic. He has a superficial laceration in the right eyebrow. EYES: Pupils equal and round. No scleral icterus. No injection or drainage. He is blind. ENT: No nasal bleeding or discharge. Mucous membranes pink and moist. NECK: Trachea midline. He does have some cervical spine tenderness. CARDIOVASCULAR: Regular rate and rhythm. Heart sounds are normal. RESPIRATORY: No accessory muscle use. Clear to auscultation. Breath sounds equal bilaterally. GASTROINTESTINAL: Abdomen soft. Nontender. Bowel sounds present. Nondistended. MUSCULOSKELETAL: No obvious deformities. He is moving all extremities. No obvious long bone injury. He does have the aforementioned bruises and abrasions. NEUROLOGICAL: Awake and alert. No obvious cranial nerve deficits. Motor grossly within normal limits. Normal speech. PSYCHIATRIC: Appropriate mood and affect; insight and judgment normal. Data Data Last Documented VS Vital Signs Date Time Temp Pulse Resp B/P (MAP) Pulse Ox O2 Delivery O2 Flow Rate FiO2 05/18/17 08:06 120 12 126/60 (82) 97 Room Air 05/18/17 08:01 98.4 Orders Orders Electrocardiogram (05/18/17 08:06) Basic Metabolic Panel (Bmp) (05/18/17 08:06) Ckmb (Isoenzyme) Profile (05/18/17 08:06) Complete Blood Count With Diff (05/18/17 08:06) Magnesium (Mg) (05/18/17 08:06) Prothrombin Time / Inr (Pt) (05/18/17 08:06) Act Partial Throm Time (Ptt) (05/18/17 08:06) Troponin I (05/18/17 08:06) Chest, Single Ap (05/18/17 08:06) Ecg Monitoring (05/18/17 08:06) Iv Access Insert/Monitor (05/18/17 08:06) Oximetry (05/18/17 08:06) Aspirin Chew (Aspirin Chew) (05/18/17 08:15) Nitroglycerin 2% Oint (Nitroglycerin 2% (05/18/17 08:15) Sodium Chloride 0.9% Flush (Ns Flush) (05/18/17 08:15) Ct Cerv Spine W/O Contrast (05/18/17 ) Ct Brain W/O Iv Contrast(Rout) (05/18/17 ) CKMB (05/18/17 08:15) CKMB% (05/18/17 08:15) Morphine Inj (Morphine Inj) (05/18/17 09:30) Ondansetron Inj (Zofran Inj) (05/18/17 09:30) Labs Laboratory Tests Test 05/18/17 08:15 White Blood Count 8.6 TH/MM3 Red Blood Count 5.01 MIL/MM3 Hemoglobin 14.9 GM/DL Hematocrit 44.3 % Mean Corpuscular Volume 88.4 FL Mean Corpuscular Hemoglobin 29.8 PG Mean Corpuscular Hemoglobin Concent 33.7 % Red Cell Distribution Width 14.9 % Platelet Count 234 TH/MM3 Mean Platelet Volume 8.9 FL Neutrophils (%) (Auto) 60.8 % Lymphocytes (%) (Auto) 27.0 % Monocytes (%) (Auto) 8.9 % Eosinophils (%) (Auto) 2.4 % Basophils (%) (Auto) 0.9 % Neutrophils # (Auto) 5.2 TH/MM3 Lymphocytes # (Auto) 2.3 TH/MM3 Monocytes # (Auto) 0.8 TH/MM3 Eosinophils # (Auto) 0.2 TH/MM3 Basophils # (Auto) 0.1 TH/MM3 CBC Comment DIFF FINAL Differential Comment Prothrombin Time 12.0 SEC Prothromb Time International Ratio 1.1 RATIO Activated Partial Thromboplast Time 22.2 SEC Blood Urea Nitrogen 8 MG/DL Creatinine 1.27 MG/DL Random Glucose 137 MG/DL Calcium Level 8.1 MG/DL Magnesium Level 1.7 MG/DL Sodium Level 143 MEQ/L Potassium Level 3.2 MEQ/L Chloride Level 111 MEQ/L Carbon Dioxide Level 19.8 MEQ/L Anion Gap 12 MEQ/L Estimat Glomerular Filtration Rate 56 ML/MIN Total Creatine Kinase 146 U/L Creatine Kinase MB 3.5 NG/ML Troponin I 0.02 NG/ML MDM Medical Decision Making Medical Screen Exam Complete: Yes Emergency Medical Condition: Yes Medical Record Reviewed: Yes (this patient is status post a NSTEMI assoc with AF with RVR in November. He subsequently underwent a three-vessel CABG. Chronic medical problems include hypertension, hyperlipidemia, diabetes, seizure disorder.) Interpretation(s) EKG shows atrial fibrillation with a ventricular rate of 124. Differential Diagnosis Differential diagnosis of chest pain includes but is not limited to musculoskeletal pain, pulmonary embolism, acute coronary syndrome, pneumonia, pleurisy My differential diagnosis of head trauma includes but is not limited to scalp contusion, concussion, intracerebral hemorrhage. Differential diagnosis of neck injury includes but is not limited to contusion, muscle strain, ligamentous strain, fracture, spinal cord injury Narrative Course This patient presents with 2 problems. The first is the chest pain. He does have a known history of coronary artery disease and is status post a three- vessel CABG in November. I have ordered aspirin and nitroglycerin. Cardiac workup is in progress. His second problem is a fall down 13 steps. He did strike his head and does have neck pain. CT of his head and neck are pending. He also has multiple abrasions and abrasions secondary to the fall but no deformity of any of the extremities and he is moving all 4 extremities without apparent difficulty. CBC & BMP Diagram 05/18/17 08:15 Calcium Level 8.1 L, Magnesium Level 1.7 CK and the is 3.5, troponin is 0.02. The patient reports that his chest pain has improved with aspirin and nitroglycerin. He states that his main complaint currently is head pain from the fall. He states that his knees are also bothering him. I will order morphine and Zofran. Last Impressions Chest X-Ray 05/18/17 0806 Signed Impressions: Service Date/Time: Thursday, May 18, 2017 08:25 - CONCLUSION: 1. No acute cardiopulmonary disease. Mitch Christopher MD Head CT 05/18/17 0000 Signed Impressions: Service Date/Time: Thursday, May 18, 2017 08:29 - CONCLUSION: 1. Stable appearance of old bilateral occipital lobe infarcts and right thalamic lacunar infarct. 2. No acute intracranial abnormality. Mitch Christopher MD Cervical Spine CT 05/18/17 0000 Signed Impressions: Service Date/Time: Thursday, May 18, 2017 08:28 - CONCLUSION: 1. No acute fracture or subluxation. 2. Multilevel degenerative spondylosis most prominently at C4-6. Mitch Christopher MD This patient needs to be evaluated in the chest pain center for the chest pain which started all of his problems this morning. He does not have any evidence of significant injury resulting from the fall. Diagnosis Primary Impression: Chest pain Qualified Codes: R07.9 - Chest pain, unspecified Additional Impressions: Atrial fibrillation Qualified Codes: I48.2 - Chronic atrial fibrillation Fall (on) (from) other stairs and steps, initial encounter Admitting Information Admitting Physician Requests: Observation Condition: Stable Emi Edge MD May 18, 2017 08:16
[2017-05-18 08:30] LABS: AUTOMATED NEUTROPHIL # 5.2 TH/MM3 (1.8-7.7); BASOPHIL # 0.1 TH/MM3 (0-0.2); BASOPHIL % 0.9 % (0.0-2.0); EOSINOPHIL # 0.2 TH/MM3 (0-0.4); EOSINOPHIL % 2.4 % (0.0-4.0); HEMATOCRIT 44.3 % (39.0-51.0); HEMO FLAGS DIFF FINAL; LYMPHOCYTE # 2.3 TH/MM3 (1.0-4.8); MEAN CELL VOLUME 88.4 FL (80.0-100.0); MEAN CORPUSCULAR HEMOGLOBIN 29.8 PG (27.0-34.0); MEAN CORPUSCULAR HGB CONC 33.7 % (32.0-36.0); MONO % 8.9 % (0.0-8.0); NEUT % 60.8 % (16.0-70.0); PLATELET COUNT 234 TH/MM3 (150-450); RED BLOOD COUNT 5.01 MIL/MM3 (4.50-5.90); RED CELL DISTRIBUTION WIDTH 14.9 % (11.6-17.2); WHITE BLOOD COUNT 8.6 TH/MM3 (4.0-11.0)
[2017-05-18 08:36] LABS: APTT (PATIENT) 22.2 SEC (24.3-30.1); INTERNATIONAL NORMALIZED RATIO 1.1 RATIO
[2017-05-18 08:44] LABS: ANION GAP 12 MEQ/L (5-15); BICARBONATE 19.8 MEQ/L (21.0-32.0); BLOOD UREA NITROGEN 8 MG/DL (7-18); CHLORIDE 111 MEQ/L (98-107); GLOMERULAR FILTRATION RATE 56 ML/MIN (>89); MAGNESIUM 1.7 MG/DL (1.5-2.5); POTASSIUM 3.2 MEQ/L (3.5-5.1); SODIUM (NA) 143 MEQ/L (136-145)
--- NOTE | 2017-05-18 08:46 | RADRPT ---
EXAM DATE/TIME: 05/18/2017 08:25 [facility] COMPARISON: CHEST SINGLE AP, December 13, 2016, 7:29. INDICATIONS : Chest pain due to fall MEDICAL HISTORY : CVA. Seizure. Blindness. CAD. Hypercholesterol. Afib. Diabetic. SURGICAL HISTORY : CABG. ENCOUNTER: Initial ACUITY: 1 day PAIN SCORE: 8/10 LOCATION: Bilateral chest FINDINGS: Postsurgical features of prior CABG with median sternotomy wires in place. No significant pneumothora x, effusion or focal parenchymal abnormality. Cardiomediastinal contours are within normal limits. No significant knee displaced rib fractures CONCLUSION: 1. No acute cardiopulmonary disease. Mithc Christopher MD on May 18, 2017 at 8:43 Board Certified Radiologist. This report was verified electronically.
[2017-05-18 08:47] LABS: CREATINE KINASE 146 U/L (39-308)
--- NOTE | 2017-05-18 09:04 | RADRPT ---
EXAM DATE/TIME: 05/18/2017 08:29 [facility] COMPARISON: CT BRAIN W/O CONTRAST, February 03, 2016, 14:29. INDICATIONS : Fell down stairs, abrasion and bruising to right forehead. RADIATION DOSE: 56.35 CTDIvol (mGy) MEDICAL HISTORY : Cardiovascular disease. Hypertension. Cerebrovascular disease. SURGICAL HISTORY : None. ENCOUNTER: Initial ACUITY: 1 day PAIN SCALE: 4/10 LOCATION: Right cranial TECHNIQUE: Multiple contiguous axial images were obtained of the head. Using automated exposure control and adj ustment of the mA and/or kV according to patient size, radiation dose was kept as low as reasonably a chievable to obtain optimal diagnostic quality images. DICOM format image data is available electro nically for review and comparison. FINDINGS: CEREBRUM: Moderate cerebral volume loss. Stable encephalomalacic defects in the posterior medial occipital lobe s bilaterally. Stable lacunar infarct in the right medial thalamus. The ventricles are normal for age . No evidence of midline shift, mass lesion, hemorrhage or acute infarction. No extra-axial fluid c ollections are seen. POSTERIOR FOSSA: The cerebellum and brainstem are intact. The 4th ventricle is midline. The cerebellopontine angle i s unremarkable. EXTRACRANIAL: The visualized portion of the orbits is intact. Small soft tissue hematoma in the anterior scalp near the vertex. SKULL: The calvaria is intact. No evidence of skull fracture. CONCLUSION: 1. Stable appearance of old bilateral occipital lobe infarcts and right thalamic lacunar infarct. 2. No acute intracranial abnormality. Mitch Christopher MD on May 18, 2017 at 8:59 Board Certified Radiologist. This report was verified electronically.
[2017-05-18 09:05] LABS: CKMB 3.5 NG/ML (0.5-3.6)
--- NOTE | 2017-05-18 09:10 | RADRPT ---
EXAM DATE/TIME: 05/18/2017 08:28 [facility] COMPARISON: No previous studies available for comparison. INDICATIONS : Fell down stairs, abrasion and bruising to right forehead. RADIATION DOSE: 38.92 CTDIvol (mGy) MEDICAL HISTORY : Cardiovascular disease. Cerebrovascular disease. Hypertension. SURGICAL HISTORY : None. ENCOUNTER: Initial ACUITY: 1 day PAIN SCALE: 4/10 LOCATION: Bilateral neck TECHNIQUE: Volumetric scanning of the cervical spine was performed. Multiplanar reconstructions in the sagittal, coronal and oblique axial planes were performed. Using automated exposure control and adjustment o f the mA and/or kV according to patient size, radiation dose was kept as low as reasonably achievable to obtain optimal diagnostic quality images. DICOM format image data is available electronically f or review and comparison. FINDINGS: Vertebral body heights are maintained. Osseous structures are intact without evidence for acute bony fracture. Dens is intact. Sagittal alignment is maintained. There is a normal C1-2 relationship. Face ts are normally aligned. There is no significant prevertebral soft tissue hematoma. Multilevel degene rative spondylosis of the cervical spine most prominently at C4-6 with diffuse disc bulge and osteoph yte formation. Multilevel predominantly left-sided facet arthropathy. No significant cervical adenopa thy or gross mass. The thyroid appears unremarkable. Visualized lung apices are clear without pneumot horax. CONCLUSION: 1. No acute fracture or subluxation. 2. Multilevel degenerative spondylosis most prominently at C4-6. Mitch Christopher MD on May 18, 2017 at 9:03 Board Certified Radiologist. This report was verified electronically.
[2017-05-18] MEDS ORDERED: MORPHINE SULFATE 4 MG/ML INJ IV PUSH ONE (09:30)
[2017-05-18] MEDS ORDERED: ONDANSETRON HCL 4 MG/2 ML VIAL IV PUSH ONE (09:30)
[2017-05-18] MEDS ORDERED: FOLI400T PO (09:59)
[2017-05-18] MEDS ORDERED: MORP15IN3 PO (10:00)
[2017-05-18] MEDS ORDERED: LACTULOSE SYRUP 20 GM/30 ML CUP PO PRN (11:15)
[2017-05-18] MEDS ORDERED: NALOXONE HCL 0.4 MG/ML AMP IV PUSH PRN (11:15)
[2017-05-18] MEDS ORDERED: SODIUM CHLORIDE 0.9% FLUSH 10 ML FLUSH IV FLUSH PRN (11:15)
[2017-05-18] MEDS ORDERED: MAGNESIUM HYDROXIDE SUSP 30 ML CUP PO PRN (11:15)
[2017-05-18] MEDS ORDERED: SENNOSIDES 8.6 MG TAB PO PRN (11:15)
[2017-05-18] MEDS ORDERED: BISACODYL 10 MG SUPP RECTAL PRN (11:15)
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
[2017-05-18] MEDS ORDERED: MORPHINE SULFATE 4 MG/ML INJ IV PUSH PRN (12:00)
[2017-05-18] MEDS ORDERED: ONDANSETRON HCL 4 MG/2 ML VIAL IV PUSH PRN (12:00)
[2017-05-18] MEDS: HEPARIN SODIUM - SQ 10,000 UNITS/ML VIAL SQ SCH (13:00)
--- NOTE | 2017-05-18 14:04 | MB ---
cc: LUIS BAXTER DATE OF CONSULTATION: 05/18/2017 REASON FOR CONSULTATION Chest pain. HISTORY OF PRESENT ILLNESS This is a 71-year-old gentleman with a history of seizure in addition to known coronary disease with prior bypass surgery this past November 2016. He basically states that he was in his usual state of health. He has quite a few falls due to what sounds like ataxia. He was walking down a flight of stairs which were concrete and he states that he may have had a seizure and fell. He fell down 13 steps, made it back to his knees but he found himself on the asphalt. He does state that he hit his head but denied brock loss of consciousness. He has had some intermittent chest pains. He describes them as a sharp shooting pain through the midsternal region. It is different than his prior angina. He follows with a tip mender, Dr. Mcwilliams at the [place], and states he has been doing well since his recent bypass. He has chronic atrial fibrillation on aspirin therapy. PAST MEDICAL HISTORY 1. Coronary artery disease with bypass surgery November 2016. 2. Recent stroke. 3. Seizure. 4. Back pain. 5. GERD. MEDICATIONS His reported medications are: 1. Morphine. 2. Folate. 3. Ophthalmic drops. 4. Ranitidine. 5. Pravastatin. 6. Vitamin-B. 7. Aspirin. ALLERGIES 1. ACETAMINOPHEN. 2. SIMVASTATIN. SOCIAL HISTORY Lives at home with his best friend and girlfriend. He still smokes. Occasional alcohol. No drug use. REVIEW OF SYSTEMS A 12-point review of systems was performed and negative unless otherwise noted in the history of present illness. PHYSICAL EXAMINATION VITAL SIGNS: Temperature 98, heart rate 86, blood pressure 112/69 mmHg. GENERAL: Alert and oriented x3, in no acute distress. HEENT: Pupils are reactive to light and accommodation. Extraocular movements are intact. NECK: No jugular venous distention. No thyromegaly. No lymphadenopathy. No carotid bruits. LUNGS: Clear to auscultation bilaterally. CARDIOVASCULAR: Regular rate and rhythm without murmurs, rubs or gallops. ABDOMEN: Nontender, nondistended. Good bowel sounds. No hepatosplenomegaly. EXTREMITIES: He has a superficial abrasion on his left fourth and fifth digit. He has a scrape on his forehead and knees. LABORATORY INR is 1. WBC 8.6, hemoglobin 14.9, platelet count 234. Sodium 143, potassium 3.2, BUN 8, creatinine 1.27. ELECTROCARDIOGRAM Electrocardiogram shows atrial fibrillation, no significant ischemic change. ASSESSMENT 1. Atypical chest pain. 2. History of coronary artery disease and prior bypass surgery recently in November 2016. 3. Fall. 4. Atrial fibrillation. PLAN From a chest pain perspective his symptoms are atypical and now have resolved. They were somewhat sharp, worse with deep inspiration. They were significantly different than his prior anginal symptoms. His EKG is unremarkable. Initial troponin is 0.02, which again is not very remarkable. At this point I do not think we need to do anything further from an ischemic work-up standpoint. I will ago and trend his troponin but if it stays in the low to possibly intermediate range, less than 0.10, I would not really even consider doing any further work-up. If there is any trend upwards further past 0.10 then may consider a Lexiscan, although again I think after recent revascularization the likelihood is fairly low that this is related to an ischemic event. Will continue with his current medical regimen from that perspective. He can follow-up with his outpatient tip mender for further management of his coronary disease. From a fall perspective it does not sound as if he described a syncopal type episode. He is quite ataxic and has frequent falls, and that is why he is not on anticoagulation related to his atrial fibrillation. He does not describe loss of consciousness and therefore I do not think he needs an extensive work-up for syncope which would include some sort of long-term event monitor. From a cardiovascular perspective will sign off. If his troponin trends up and if further recommendations are needed, feel free to give us a call. Otherwise, he can be discharged when medically cleared from a general medical perspective and follow-up with his outpatient tip mender. MD TANG Lorenz/JOE /1:20 PM /1:45 PM
--- NOTE | 2017-05-18 14:41 | EKG ---
Date Performed: 05/18/2017 Time Performed: 08:08:30 PTAGE: 71 years EKG: ATRIAL FIBRILLATION WITH RAPID VENTRICULAR RESPONSE INFERIOR MYOCARDIAL INFARCTION ABNORMAL ECG PREVIOUS TRACING : 12/16/2016 10.12 Compared to the previous tracing a fib with RVR present DOCTOR: Caesar Lee Interpretating Date/Time 05/18/2017 14:39:49
--- NOTE | 2017-05-18 16:27 | HHI.FPPN ---
Subjective Subjective Patient seen and examined. Case reviewed and discussed Please refer to resident H&P for further details regarding HPI, ROS, PMH, SurgHx , FH and SocHx In summary, patient is a 71yoM with a history of CAD s/p CABG, afib, CVA, seizure presenting after a fall down stairs and chest pain. Patient reports he was woken up from his sleep due to chest discomfort, and thinks he may have also had a questionable seizure because he believed he had urinary incontinence. He then proceeded to undress and go outside of his apartment to get help and fell down 13 steps. A neighbor called 911. At the time of my encounter, patient does not have any chest pain. He reports some burning pain from his abrasions, but mostly describes some frustration with being confused. [facility] Objective Objective Last Impressions Chest X-Ray 05/18/17 0806 Signed Impressions: Service Date/Time: Thursday, May 18, 2017 08:25 - CONCLUSION: 1. No acute cardiopulmonary disease. Mitch Christopher MD Head CT 05/18/17 0000 Signed Impressions: Service Date/Time: Thursday, May 18, 2017 08:29 - CONCLUSION: 1. Stable appearance of old bilateral occipital lobe infarcts and right thalamic lacunar infarct. 2. No acute intracranial abnormality. Mitch Christopher MD Cervical Spine CT 05/18/17 0000 Signed Impressions: Service Date/Time: Thursday, May 18, 2017 08:28 - CONCLUSION: 1. No acute fracture or subluxation. 2. Multilevel degenerative spondylosis most prominently at C4-6. Mitch Christopher MD Laboratory Tests - Abnormals Test 05/18/17 08:15 05/18/17 13:20 Monocytes (%) (Auto) 8.9 % Prothrombin Time 12.0 SEC Activated Partial Thromboplast Time 22.2 SEC Random Glucose 137 MG/DL Calcium Level 8.1 MG/DL Potassium Level 3.2 MEQ/L Chloride Level 111 MEQ/L Carbon Dioxide Level 19.8 MEQ/L Estimat Glomerular Filtration Rate 56 ML/MIN Vital Signs 05/18/17 05/18/17 05/18/17 05/18/17 08:01 08:06 09:52 11:55 Temp 98.4 Pulse 122 120 92 Resp 16 12 16 B/P (MAP) 126/60 (82) 126/60 (82) 104/76 (85) Pulse Ox 97 97 97 98 O2 Delivery Room Air Room Air FiO2 21 05/18/17 12:10 Pulse 86 Resp 16 B/P (MAP) 112/69 (83) Pulse Ox 100 O2 Delivery Room Air Physical exam GENERAL: disheveled male, mildly anxious, NAD SKIN: Warm and dry. Scattered abrasions over L hand, bilateral feet and forehead s/p fall HEAD: Normocephalic. AT EYES: No scleral icterus. No injection or drainage. ENT: OP clear, MM slightly dry NECK: Supple, trachea midline. No JVD or lymphadenopathy. CARDIOVASCULAR: Irregularly irregular rhythm, rate controlled without murmurs, gallops, or rubs. RESPIRATORY: Breath sounds equal bilaterally, coarse. No accessory muscle use. GASTROINTESTINAL: Abdomen soft, non-tender, nondistended. MUSCULOSKELETAL: No cyanosis, or edema. No calf tenderness. There is TTP over L patella BACK: Nontender without obvious deformity. No CVA tenderness. NEURO: Awake and alert. CN grossly intact. Diminished sensation LE bilaterally. Assessment Assessment 71yoM admitted with: Fall AMS Seizure vs CVA Afib, chronic (presented in RVR) LE weakness Hx CAD s/p CABG Hx CVA Chronic back pain GERD PLAN PLAN Stroke protocol, MRI, MRA Brain Neurochecks PT, ST for cognitive eval Trend CE, ekg 2D echo, carotids EEG Check keppra level Seizure precautions Resume home meds as appropriate Patient seen and examined Case reviewed and discussed Agree with plan of care as discussed with me and documented in the resident note. Emi Mccormick MD May 18, 2017 16:27
[2017-05-18 21:58] LABS: ALCOHOL LESS THAN 3 MG/DL (0-5)
[2017-05-18 21:59] LABS: CREATINE KINASE 167 U/L (39-308)
[2017-05-18] MEDS ORDERED: GADODIAMIDE PF 287 MG/ML 5 ML VIAL (for RAD MRI) IVCONTRAST ONE (22:35)
--- NOTE | 2017-05-18 23:05 | RADRPT ---
EXAM DATE/TIME: 05/18/2017 22:25 [facility] COMPARISON: MRI BRAIN W/O CONTRAST, February 03, 2016, 18:21. INDICATIONS : Seizures. CONTRAST: 16 cc Omniscan (gadodiamide) IV MEDICAL HISTORY : Seizures. Cardiovascular disease Myocardial infarction. HYN, Diabetis. SURGICAL HISTORY : CABG Cataracts. ENCOUNTER: Initial ACUITY: 1 day PAIN SCORE: 3/10 LOCATION: Bilateral cranial TECHNIQUE: Multiplanar, multisequence MRI of the brain was performed both prior to and following the administrat ion of paramagnetic contrast. FINDINGS: Compared to dominant 16. Again seen are remote infarcts in the occipital lobes bilaterally, medial ri ght parietal lobe and lacunar infarct in the right thalamus. Mild white matter ischemic changes. Over all no significant change since 2016. No recent infarct on the diffusion weighted images. There is co rtical volume loss. No intracranial hemorrhage. No hydrocephalus. CONCLUSION: 1. Stable remote infarcts in both occipital lobes, medial right parietal lobe and right thalamus. No acute infarction, mass, hemorrhage or shift. Marshall Rodas MD on May 18, 2017 at 22:59 Board Certified Radiologist. This report was verified electronically.
[2017-05-19] VITALS (11 sets, daily range): BP systolic 93–127; BP diastolic 61–71; PULSE 62–112; RESP 18–20; TEMP 97.6–98.5; O2SAT 92–98
[2017-05-19] MEDS: HEPARIN SODIUM - SQ 10,000 UNITS/ML VIAL SQ SCH ×2 (00:18→16:48)
[2017-05-19] MEDS: DOCUSATE SODIUM 50 MG/SENNA 8.6 MG TAB PO SCH ×3 (00:18→21:08)
[2017-05-19] MEDS: SODIUM CHLORIDE 0.9% FLUSH 10 ML FLUSH IV FLUSH SCH ×3 (00:19→21:09)
[2017-05-19] MEDS ORDERED: ASPIRIN 81 MG CHEW TAB CHEW SCH (00:30)
[2017-05-19] MEDS ORDERED: HYDROmorphone HCL PF 1 MG/ML VIAL IV PUSH PRN (00:45)
[2017-05-19] MEDS ORDERED: NALOXONE HCL 0.4 MG/ML AMP IV PUSH PRN (00:45)
[2017-05-19] MEDS: MORPHINE SULFATE 15 MG CONTROLLED RELEASE TAB PO SCH ×3 (00:52→21:09)
[2017-05-19] MEDS ORDERED: cloNIDine HCL 0.1 MG TAB PO PRN (01:00)
[2017-05-19 01:34] LABS: HDL CHOLESTEROL 33.1 MG/DL (40.0-60.0)
--- NOTE | 2017-05-19 07:44 | EKG ---
Date Performed: 05/18/2017 Time Performed: 19:14:28 PTAGE: 71 years EKG: ATRIAL FIBRILLATION SEPTAL MYOCARDIAL INFARCTION , PROBABLY OLD INFERIOR MYOCARDIAL INFARCT ION , PROBABLY OLD ABNORMAL ECG Since PREVIOUS TRACING , now in AF PREVIOUS TRACIN05/18/2017 14.03 DOCTOR: Tatiana Helton Interpretating Date/Time 05/19/2017 07:41:52
[2017-05-19 07:59] LABS: AUTOMATED NEUTROPHIL # 4.3 TH/MM3 (1.8-7.7); BASOPHIL # 0.1 TH/MM3 (0-0.2); BASOPHIL % 0.8 % (0.0-2.0); EOSINOPHIL # 0.2 TH/MM3 (0-0.4); EOSINOPHIL % 1.8 % (0.0-4.0); HEMATOCRIT 42.8 % (39.0-51.0); HEMO FLAGS DIFF FINAL; LYMPH % 35.2 % (9.0-44.0); MEAN CELL VOLUME 88.8 FL (80.0-100.0); MEAN CORPUSCULAR HEMOGLOBIN 30.2 PG (27.0-34.0); MEAN CORPUSCULAR HGB CONC 34.1 % (32.0-36.0); MONO % 12.6 % (0.0-8.0); NEUT % 49.6 % (16.0-70.0); PLATELET COUNT 195 TH/MM3 (150-450); RED BLOOD COUNT 4.83 MIL/MM3 (4.50-5.90); RED CELL DISTRIBUTION WIDTH 15.1 % (11.6-17.2); WHITE BLOOD COUNT 8.6 TH/MM3 (4.0-11.0)
--- NOTE | 2017-05-19 07:59 | EKG ---
Date Performed: 05/18/2017 Time Performed: 14:03:49 PTAGE: 71 years EKG: ATRIAL FIBRILLATION SEPTAL MYOCARDIAL INFARCTION INFERIOR MYOCARDIAL INFARCTION ABNORMAL EC G Since PREVIOUS TRACING , no longer tachycardic PREVIOUS TRACIN05/18/2017 08.08 DOCTOR: Tatiana Helton Interpretating Date/Time 05/19/2017 07:58:21
[2017-05-19 08:11] LABS: INTERNATIONAL NORMALIZED RATIO 1.1 RATIO; PROTHROMBIN TIME - PATIENT 12.2 SEC (9.8-11.6)
[2017-05-19 08:29] LABS: ANION GAP 8 MEQ/L (5-15); AST (GOT) 11 U/L (15-37); BICARBONATE 25.7 MEQ/L (21.0-32.0); BLOOD UREA NITROGEN 11 MG/DL (7-18); CHLORIDE 108 MEQ/L (98-107); GLOMERULAR FILTRATION RATE 62 ML/MIN (>89); POTASSIUM 3.6 MEQ/L (3.5-5.1); SODIUM (NA) 142 MEQ/L (136-145)
[2017-05-19 08:32] LABS: ALKALINE PHOSPHATASE 45 U/L (45-117); ALT (GPT) 7 U/L (12-78); TOTAL BILIRUBIN ADULT 1.7 MG/DL (0.2-1.0)
[2017-05-19] MEDS: PRAVASTATIN SOD 40 MG TAB PO SCH (09:00)
--- NOTE | 2017-05-19 09:33 | HHI.FPPN ---
Subjective Remarks Pt seen and examined this morning. He has been afebrile and vital signs have been stable. He reports muscle pain is improved this morning. He denies headache , chest pain, shortness of breath, abdominal pain. He believes he possibly had a seizure yesterday. (Jackie Ingram MD R3) Objective Vitals Vital Signs Date Time Temp Pulse Resp B/P (MAP) Pulse Ox O2 Delivery O2 Flow Rate FiO2 05/19/17 08:00 98.0 75 20 120/70 (87) 94 05/19/17 04:00 97.6 62 18 100/64 (76) 97 05/19/17 04:00 Room Air 05/19/17 00:00 97.9 88 18 127/68 (87) 96 05/19/17 00:00 Room Air 05/18/17 20:00 Room Air 05/18/17 20:00 83 05/18/17 20:00 97.8 83 18 105/66 (79) 98 05/18/17 17:15 97.5 87 20 135/86 (102) 98 05/18/17 17:15 Room Air 05/18/17 16:20 05/18/17 12:10 86 16 112/69 (83) 100 Room Air 05/18/17 11:55 98 21 05/18/17 09:52 92 16 104/76 (85) 97 Room Air I/O 05/18/17 05/18/17 05/18/17 05/19/17 05/19/17 05/19/17 07:00 15:00 23:00 07:00 15:00 23:00 Intake Total 240 ml 540 ml Output Total 200 ml 400 ml Balance 40 ml 140 ml Intake Oral 240 ml 540 ml Output Urine Total 200 ml 400 ml # Bowel Movements 0 0 (Jackie Ingram MD R3) Result Diagram: 05/19/17 0742 05/19/17 0742 Objective Remarks GENERAL: Well-nourished, well-developed patient. SKIN: Multiple abrasions on feet, knees, hands. HEAD: Normocephalic. Abrasion on forehead. EYES: No scleral icterus. No injection or drainage. NECK: Trachea midline. No JVD or lymphadenopathy. CARDIOVASCULAR: Regular rate and rhythm without murmurs, gallops, or rubs. RESPIRATORY: Normal work of breathing. Diffuse expiratory wheezing. Breath sounds equal bilaterally. No accessory muscle use. GASTROINTESTINAL: Abdomen soft, non-tender, nondistended. EXTREMITIES: No cyanosis, or edema. NEUROLOGICAL: Awake, alert, and oriented x 3. Non-focal. (Jackie Ingram MD R3) A/P Assessment and Plan 71-year-old male with history of seizure, CVA and significant coronary artery disease/CABG who presents with chest pain, possible seizure, and fall. Discharge Planning Anticipate discharge to rehab once cleared by neurology and EEG has been completed. Case management to assist with SNF placement. Likely in 2 days. (Jackie Ingram MD R3) Attending Attestation Patient seen and examined. Case reviewed and discussed Agree with plan of care as discussed with me and documented in the resident note. (Emi Mccormick MD) Problem List: (1) Fall (on) (from) other stairs and steps, initial encounter ICD Codes: W10.8XXA - Fall (on) (from) other stairs and steps, initial encounter Status: Acute Plan: Patient reports a fall the day of admission. He has had a history of falls and this typically precludes anticoagulation for A. fib. He did have superficial scrapes noted on the head and distal extremities.Pt is visually impaired. Neuro exam is grossly unremarkable today. -Neuro checks every 4 hours -PT ordered, rehabilitation recommended -Fall precautions -Seizure precautions -Pain control with oxycodone 5 mg pain 1-5, 10 mg pain 5-10, morphine IV 2 mg for breakthrough pain -Patient is already on long-acting morphine sulfate, 15 mg AM, 30 mg PM --> will resume 15 mg twice a day at this time Imaging: Brain MRI 05/18/17: Stable remote infarcts in both occipital lobes, medial right parietal lobe and right thalamus. No acute infarction, mass hemorrhage or shift. Cervical spine CT 05/18/17: No acute fracture or subluxation. Multilevel degenerative spondylosis most prominent at C4-6. Head CT: Stable appearance of old bilateral occipital lobe infarcts and right thalamic lacunar infarct. No acute intracranial abnormality. (2) Chest pain ICD Codes: R07.9 - Chest pain, unspecified Status: Acute Plan: Patient presents for chest pain with significant CAD/CABG history. He has history of CVA. Clinical history concerning for cardiac source for chest pain though patient possibly had a seizure prior to chest pain. Initial labs showing normal troponin of 0.02 and EKG with A. fib CXR unremarkable -Received aspirin 1 in ED -Cardiology consulted, appreciate recommendations -ACS ruled out troponin 0.02 x3, no ischemic changes on EKG -Pt cleared from a cardiology stand point -Titrate nasal cannula to go O2 sat greater than 94% -Morphine, oxygen, nitroglycerin when necessary -Reassess for any new chest pain (3) CAD (coronary artery disease) ICD Codes: I25.10 - CAD (coronary artery disease) Status: Chronic Plan: Chronic, history of CABG, management as above (4) History of seizure ICD Codes: Z87.898 - Personal history of other specified conditions Status: Chronic Plan: Patient history is concerning for possible seizure. He is on Keppra 750 mg twice daily, with last dose the night prior to admission. -Neurology consulted, appreciate recommendations -EEG ordered -Close monitoring with seizure precautions -Continue Keppra at home dose -Will check Keppra level -Ativan to be given when necessary for break through seizures (5) Hypertension ICD Codes: I10 - Hypertension Status: Acute Plan: Chronic, BP within normal limits. Lisinopril 2.5mg daily is on med rec, will continue. -PRN clonidine 0.1mg q6hr PRN for SBP >180/110 (6) Chronic back pain ICD Codes: M54.9 - Dorsalgia, unspecified; G89.29 - Other chronic pain Status: Chronic Plan: Patient has chronic back pain superimposed on acute pain from fall today. He takes morphine sulfate 15 mg in the morning, 30 mg at night. He states he is taking this dose for at least 1-2 years. -We'll continue at dose of 15 mg twice daily -Likely will continue 30 mg nighttime dose tomorrow (7) Fluids/Electrolytes/Nutrition/Prophylaxis Plan: Fluids: tolerating PO Electrolytes: Continue to monitor Nutrition: Heart healthy diet DVT Prophylaxis: Early ambulation with assistance. Heparin 5000U subQ q12hr GI Prophylaxis: Not indicated (Jackie Ingram MD R3) Problem Qualifiers (1) Chest pain: Qualified Codes: R07.9 - Chest pain, unspecified Jackie Ingram MD R3 May 19, 2017 09:33 Emi Mccormick MD May 21, 2017 14:12
[2017-05-19] MEDS: levETIRAcetam 250 MG TAB PO SCH ×2 (10:02→21:08)
[2017-05-19] MEDS: LISINOPRIL 5 MG TAB PO SCH (10:04)
[2017-05-19] MEDS: FAMOTIDINE 20 MG TAB PO SCH (10:04)
[2017-05-19] MEDS: ESCITALOPRAM OXALATE 10 MG TAB PO SCH (10:04)
--- NOTE | 2017-05-19 13:18 | MB ---
cc: AUDRA MENDEZ DATE OF CONSULTATION 05/19/2017 REASON FOR CONSULTATION Seizures. HISTORY OF PRESENT ILLNESS Mr. Holman is a 71-year-old male with a past medical history of seizures, coronary artery disease, multiple strokes, multiple falls, CA, who presented to the [facility] Emergency Room for acute onset of chest pain, fall and possible seizure. The patient states that he has history of seizures and he follows up at the [facility]. He thinks that he has seizure for the past 6 or 7 years and describes episodes as starts with a mild chest pain and then his body started shaking. He denies any loss of control of bladder or bowel. He denies tongue biting, headache, double vision, blurred vision but he wakes up and he is on the floor. The patient is legally blind. He thinks that he is on lamotrigine; he is uncertain about the dose and when I mentioned to him Keppra he said that does not sound like the medication he is on. The patient is not certain whether he had a seizure this time. He states that he may have a seizure once in a year and he may have missed a few doses because he tends to fall asleep and misses a dose.The patient also complains of burning sensation in both hands and feet. REVIEW OF SYSTEMS A 12-point review of systems is negative except for as stated in the HPI. PAST MEDICAL HISTORY 1. Seizure. 2. Atrial fibrillation. 3. Stroke. 4. Multiple falls. 5. Coronary artery disease. PAST SURGICAL HISTORY 1. CABG in November of 2016. 2. Bilateral lens surgery. 3. Heart catheterization. MEDICATIONS 1. Lisinopril. 2. Escitalopram. 3. Morphine. 4. Folic. 5. Magnesium. 6. Ranitidine. 7. Pravastatin. 8. Keppra 750 twice daily 9. Vitamin B12. 10. Aspirin 81. ALLERGIES ACETAMINOPHEN. SIMVASTATIN. FAMILY HISTORY Mother in her 90s. Father unknown cause of . Brother with skin cancer. SOCIAL HISTORY Lives by himself in a [address] home. Chronic smoker. Drinks alcohol, less than five beers per month. Never used illicit drugs. PHYSICAL EXAMINATION GENERAL: Awake, alert, pleasant, poor historian. HEENT: Multiple bruises on the face. No teeth. Impaired vision and intact hearing. NECK: Supple neck. No signs of meningeal irritation. CARDIAC: Unremarkable. CHEST: Scar of sternotomy. Regular rate and rhythm. LUNGS: No wheezes. Clear to auscultation. ABDOMEN: Soft. No wheezes. EXTREMITIES: Multiple abrasions and signs of bruises and fingers and toes. No edema. NEUROLOGIC EXAMINATION Awake, alert, oriented to time, person and place. No dysarthria. No dysphasia. Diminished vision/chronic. Intact external ocular motility. No facial asymmetry. No dysarthria. No dysphasia. Motor system examination shows bilateral upper extremity tremor, left greater than right, intentional tremor with left upper extremity grade 5-minus elbow extension and shoulder abduction, left lower extremities - limited exam of muscle strength due to pain on moving the joints. Grossly 4-minus hip flexion and knee extension, left lower extremity 5-minus hip flexion and 4+ knee extension. Slow abnormal [id number] on the left side with overshoot, right side slow but normal. Unable to perform [id number] test. Reflexes 1+ bilateral and symmetrical upper extremities. Sluggish bilateral ankle, absent ankles. Decreased sensation in a stocking distribution. Plantars are bilaterally downgoing. LABORATORY DATA WBC 8.6, hemoglobin 14.6. Sodium 142, potassium 3.6, anion gap 8, BUN 11, creatinine 1.17. Bilirubin 1.7, AST 11, ALT 7, LDL cholesterol 106, HDL 33, triglyceride 111. DIAGNOSTIC IMAGING - HEAD CT SCAN Stable appearance of old bilateral occipital lobe infarct and right thalamic lacunar infarct. - MRI BRAIN :Stable remote infarct in both occipital lobes, medial right parietal lobe and right thalamus. No acute infarction, mass hemorrhage or shift. - Carotid ultrasound done on 12/07/2016 revealed mild heterogeneous plaque bilateral at the carotid bifurcation, no evidence of hemodynamically significant stenosis. DIAGNOSTIC IMPRESSIONS 1. History of multiple strokes bilateral with residual mild left-sided weakness and unsteadiness. 2. Seizure disorder. 3. Hypertension. 4. Chronic back pain. 5. Coronary artery disease. PLAN 1. Neuro checks q. 4 hours. 2. Aspirin 81 mg daily. 3. Resume Keppra at home dose of 750 twice daily and verify whether he is on lamotrigine as he adamantly thinks he is on. 4. Seizure precautions. 5. I reviewed the carotid ultrasound that was done in November 2016. There is no need to re-do carotid study. 6. Multiple falls. 7. PT/ OT. 8. Fall precautions. 9. The patient is on polypharmacy and high doses of opiates. 10. DVT prophylaxis. 11. EEG. Thank you for the opportunity to participate in the care of your patient. MD RADHA Nunez/JULITETE /12:25 PM /12:50 PM MTDD
[2017-05-19] MEDS: RESP: ALBUTEROL 2.5 MG/IPRATROPIUM 0.5 MG NEB (SCH) NEB ×3 (16:31→23:31)
[2017-05-19] MEDS: NITROGLYCERIN 0.4 MG SL 25 TABS/BTL SL PRN (16:47)
[2017-05-19] MEDS: MUPIROCIN 2% OINT 22 GM TUBE TOPICAL SCH ×2 (16:50→21:09)
[2017-05-19 22:18] LABS: BLOOD, URINE NEG (NEG); COMMENT (UR) CULT NOT INDICATED; CULTURE IF INDICATED CULT NOT INDICATED; GLUCOSE,URINE TRACE mg/dL (NEG); HYALINE CAST, URINE 3 /lpf (RARE); KETONE, URINE 10 mg/dL (NEG); MUCUS URINE FEW /lpf (OCC); NITRITE,URINE NEG (NEG); PH, URINE 5.5 (5.0-8.5); SQUAMOUS EPITHELIAL CELL URINE 2 /hpf (0-5)
[2017-05-19 22:56] LABS: URINE COLOR ORANGE (YELLW/STRAW)
[2017-05-20] VITALS: BP 97/56; PULSE 92; RESP 20; TEMP 98; O2SAT 92
[2017-05-20] MEDS: HEPARIN SODIUM - SQ 10,000 UNITS/ML VIAL SQ SCH ×2 (01:00→13:00)
--- NOTE | 2017-05-20 01:09 | HHI.PR ---
Addendum to Inpatient Note Addendum Reason: Additional Documentation Additional Information Resident team paged at 22:16 by nurse. Reports that patient was tachycardic ( 140s) after receiving breathing treatment. Nurse was concerned for RVR. Per chart review, patient is currently not on rate control or anticoagulants due to hx of bradycardia and falls. Patient sleeping comfortably in bed. Nurse reports that his heart rate improved to 87-109 after resting and relaxing. He has no complaints at this time. GENERAL: elderly gentleman lying in bed, NAD SKIN: Warm and dry. No rash. HEENT: AT/NC w/ EOMI, no visible JVD or LAD CARDIOVASCULAR: irregular rate and rhythm w/ no m/r/g RESPIRATORY: CTAB GASTROINTESTINAL: Abdomen nondistended. MUSCULOSKELETAL: 2+ pulses NEURO/PSYCH: Afocal. Awake, alert, and oriented x3. A/P: Mr. Holman is a 71yr old man admitted for ACS rule out s/p fall, currently presenting after RVR event 1. Afib w/ RVR - Patient received albuterol treatments x2 today with elevations of HR to 140s - EKG showing afib w/ HR of 87 -Physical exam reassuring with patient endorsing no chest pain - ACS previously ruled out -Held breathing treatments as likely trigger for RVR event -Continue to monitor s/d/w Dr. Jasso (Belinda Springer MD R1) Belinda Springer MD R1 May 20, 2017 01:09 Emi Mccormick MD May 21, 2017 14:09
[2017-05-20 04:00] VITALS: BP 104/67; PULSE 89; RESP 20; TEMP 98.2; O2SAT 96
[2017-05-20] MEDS: MUPIROCIN 2% OINT 22 GM TUBE TOPICAL SCH ×3 (05:53→22:11)
[2017-05-20 08:00] VITALS: BP 109/61; PULSE 96; RESP 20; TEMP 98.6; O2SAT 96
[2017-05-20] MEDS: FAMOTIDINE 20 MG TAB PO SCH (08:20)
[2017-05-20] MEDS: DOCUSATE SODIUM 50 MG/SENNA 8.6 MG TAB PO SCH ×2 (08:20→20:12)
[2017-05-20] MEDS: LISINOPRIL 5 MG TAB PO SCH (08:20)
[2017-05-20] MEDS: ESCITALOPRAM OXALATE 10 MG TAB PO SCH (08:20)
[2017-05-20] MEDS: PRAVASTATIN SOD 40 MG TAB PO SCH (08:20)
[2017-05-20] MEDS: levETIRAcetam 250 MG TAB PO SCH ×2 (08:20→20:12)
[2017-05-20] MEDS: MORPHINE SULFATE 15 MG CONTROLLED RELEASE TAB PO SCH (08:22)
[2017-05-20] MEDS: SODIUM CHLORIDE 0.9% FLUSH 10 ML FLUSH IV FLUSH SCH ×2 (08:24→20:12)
[2017-05-20 08:39] LABS: BASOPHIL % 0.6 % (0.0-2.0); EOSINOPHIL # 0.1 TH/MM3 (0-0.4); EOSINOPHIL % 1.3 % (0.0-4.0); HEMATOCRIT 40.5 % (39.0-51.0); HEMO FLAGS DIFF FINAL; LYMPH % 30.2 % (9.0-44.0); LYMPHOCYTE # 2.2 TH/MM3 (1.0-4.8); MEAN CELL VOLUME 89.1 FL (80.0-100.0); MEAN CORPUSCULAR HEMOGLOBIN 30.1 PG (27.0-34.0); MEAN CORPUSCULAR HGB CONC 33.8 % (32.0-36.0); MONO % 12.9 % (0.0-8.0); PLATELET COUNT 180 TH/MM3 (150-450); RED BLOOD COUNT 4.54 MIL/MM3 (4.50-5.90); RED CELL DISTRIBUTION WIDTH 14.7 % (11.6-17.2); WHITE BLOOD COUNT 7.2 TH/MM3 (4.0-11.0)
[2017-05-20 09:01] LABS: ALT (GPT) 11 U/L (12-78); ANION GAP 10 MEQ/L (5-15); AST (GOT) 10 U/L (15-37); BICARBONATE 28.1 MEQ/L (21.0-32.0); BLOOD UREA NITROGEN 14 MG/DL (7-18); CHLORIDE 103 MEQ/L (98-107); GLOMERULAR FILTRATION RATE 62 ML/MIN (>89); POTASSIUM 3.6 MEQ/L (3.5-5.1); SODIUM (NA) 141 MEQ/L (136-145)
[2017-05-20 09:04] LABS: ALKALINE PHOSPHATASE 43 U/L (45-117); TOTAL BILIRUBIN ADULT 1.2 MG/DL (0.2-1.0)
--- NOTE | 2017-05-20 10:36 | EKG ---
Date Performed: 05/19/2017 Time Performed: 22:46:16 PTAGE: 71 years EKG: Atrial fibrillation Lead(s) unsuitable for analysis: V2 Right axis deviation IV conduction defect Anterior infarct - age undetermined Right ventricular hypertrophy Inferior ST-T changes may be due to hypertrophy and/or ischemia Compared to previous tracing there has been a significant shift i n the axis to rightward with criteria to suggest right ventricular hypertrophy. Criteria for inferior infarction are no longer met. Clinical correlation is recommended. Abnormal ECG PREVIOUS TRACING : 05/18/17 DOCTOR: Shalom Ingram Interpretating Date/Time 05/20/2017 10:35:05
--- NOTE | 2017-05-20 11:43 | HHI.FPPN ---
Subjective Remarks Patient was seen and examined this morning. He complains of new onset left sided shoulder pain and hip pain. He states he feels weak on that side. He states this started after he woke up this morning. He notes that he has chronic back pain but this is new. He states he did not get any of these symptoms yesterday. He denies chest pain, shortness of breath, confusion, dysphasia, shortness of breath, vomiting. He did have some nausea this morning and has not yet ordered breakfast for this reason. He did not feel he had a seizure but does note that he has bilateral tremors of the hands which are new. (Lexie Ingram MD R2) Objective Vitals Vital Signs Date Time Temp Pulse Resp B/P (MAP) Pulse Ox O2 Delivery O2 Flow Rate FiO2 05/20/17 04:00 98.2 89 20 104/67 (79) 96 05/20/17 00:00 98.0 92 20 97/56 (70) 92 05/20/17 00:00 Room Air 05/19/17 23:33 98 05/19/17 21:29 95 21 05/19/17 20:30 112 05/19/17 20:00 Room Air 05/19/17 20:00 98.3 88 18 93/61 (72) 92 05/19/17 16:00 98.5 71 20 107/68 (81) 96 05/19/17 12:00 98.4 78 20 104/71 (82) 95 I/O 05/19/17 05/19/17 05/19/17 05/20/17 05/20/17 05/20/17 07:00 15:00 23:00 07:00 15:00 23:00 Intake Total 540 ml 480 ml 580 ml Output Total 400 ml 600 ml Balance 140 ml 480 ml -20 ml Intake Oral 540 ml 480 ml 580 ml Output Urine Total 400 ml 600 ml # Voids 0 # Bowel Movements 0 0 0 (Lexie Ingram MD R2) Result Diagram: 05/20/17 0747 05/20/17 0747 Imaging Last Impressions Shoulder X-Ray 05/20/17 0000 Signed Impressions: Service Date/Time: Saturday, May 20, 2017 14:52 - CONCLUSION: 1. There is no evidence of acute fracture. Shalom Ty MD Knee X-Ray 9/29/17 0000 Signed Impressions: Service Date/Time: Saturday, May 20, 2017 14:48 - CONCLUSION: Significant degenerative changes with small joint effusion. Jese Beck MD FACR Hip and Pelvis X-Ray 05/20/17 Signed Impressions: Service Date/Time: Saturday, May 20, 2017 14:44 - CONCLUSION: Negative for fracture or dislocation. Follow up in 7-10 days is suggested if symptoms persist. Jese Beck MD FACR Chest X-Ray 05/18/17 08 Signed Impressions: Service Date/Time: Thursday, May 18, 2017 08:25 - CONCLUSION: 1. No acute cardiopulmonary disease. Mitch Christopher MD Head CT 05/18/17 Signed Impressions: Service Date/Time: Thursday, May 18, 2017 08:29 - CONCLUSION: 1. Stable appearance of old bilateral occipital lobe infarcts and right thalamic lacunar infarct. 2. No acute intracranial abnormality. Mitch Christopher MD Cervical Spine CT 05/18/17 Signed Impressions: Service Date/Time: Thursday, May 18, 2017 08:28 - CONCLUSION: 1. No acute fracture or subluxation. 2. Multilevel degenerative spondylosis most prominently at C4-6. Mitch Christopher MD Brain MRI 05/18/17 Signed Impressions: Service Date/Time: Thursday, May 18, 2017 22:25 - CONCLUSION: 1. Stable remote infarcts in both occipital lobes, medial right parietal lobe and right thalamus. No acute infarction, mass, hemorrhage or shift. Marshall Rodas MD Objective Remarks GENERAL: Well-nourished, well-developed patient. SKIN: Multiple abrasions on feet, knees, hands. HEAD: 3cm superficial laceration across right forehead, healing well EYES: Left pupil oval in shape, chronic. Reactive to light and accommodation bilaterally ENT: MMM, uvula midline, no tonsillar erythema NECK: Trachea midline. No JVD or lymphadenopathy. CARDIOVASCULAR: Regular rate and rhythm without murmurs, gallops, or rubs. Cardiac exam unremarkable. Sternotomy scar noted. RESPIRATORY: Normal work of breathing. Diffuse expiratory wheezing. Breath sounds equal bilaterally. No accessory muscle use. GASTROINTESTINAL: Abdomen soft, non-tender, nondistended. EXTREMITIES: No cyanosis, or edema. Left lateral 4th and 5th digit with superficial abrasion. Tips of bilateral feet with superficial abrasions covering petrolatum. Pain reported in left knee exam NEUROLOGICAL: Awake, alert, and oriented x 3. Non-focal. Neuro exam notable for decreased sensation left medial ankle. professional skater intact, no cerebellar dysfunction. He has 5/5 strength in extremities but complains of left upper and left lower extremity pain with resistance. Medications and IVs Inpatient Medications Albuterol/ Ipratropium (Duoneb Neb) 1 ampule Q4HR NEB NEB Last administered on 05/19/17 23:31; Start 05/19/17 at 12:00; Status Future Hold Aspirin (Aspirin Chew) 81 mg ONCE CHEW Last administered on 05/19/17 00:51; Start 05/19/17 at 00:30; Stop 05/19/17 at 01:30; Status DC Bisacodyl (Dulcolax Supp) 10 mg DAILY PRN RECTAL SEVERE CONSITIPATION; Start at 11:15 Clonidine (Catapres) 0.1 mg Q6H PRN PO SBP> OR = 180, DBP> OR = 100; Start at 01:00 Escitalopram Oxalate (Lexapro) 10 mg DAILY PO Last administered on 05/20/17 08 :20; Start 05/19/17 at 09:00 Famotidine (Pepcid) 20 mg DAILY PO Last administered on 05/20/17 08:20; Start 05/19/17 at 09:00 Heparin Sodium (Porcine) (Heparin Inj) 5,000 units Q12H SQ Last administered on 05/20/17 13:00; Start 05/18/17 at 13:00 Hydromorphone HCl (Dilaudid Pf Inj) 1 mg Q3H PRN IV PUSH BREAKTHROUGH PAIN; Start 05/19/17 at 00:45; Stop 05/19/17 at 09:31; Status DC Lactulose (Lactulose Liq) 30 ml DAILY PRN PO SEVERE CONSITIPATION; Start at 11:15 Levetriacetam (Keppra) 750 mg BID PO Last administered on 05/20/17 08:20; Start 05/19/17 at 09:00 Lisinopril (Prinivil) 2.5 mg DAILY PO Last administered on 05/20/17 08:20; Start 05/19/17 at 09:00 Magnesium Hydroxide (Milk Of Magnesia Liq) 30 ml Q12H PRN PO MILD - MODERATE CONSTIPATION; Start 05/18/17 at 11:15 Morphine Sulfate (Morphine Inj) 2 mg Q30M PRN IV PUSH CHEST PAIN; Start at 12:00; Stop 05/19/17 at 09:31; Status DC Morphine Sulfate (Oramorph Sr) 15 mg BID PO Last administered on 05/20/17 08: 22; Start 05/19/17 at 00:30 Mupirocin (Bactroban 2% Oint) 1 applic Q8HR TOPICAL Last administered on 14:00; Start 05/19/17 at 14:00 Naloxone HCl (Narcan Inj) 0.4 mg UNSCH PRN IV PUSH SEE LABEL COMMENTS; Start at 00:45; Stop 05/19/17 at 09:31; Status DC Nitroglycerin (Nitroglycerin 2% Oint) 1 inch ONCE ONCE TOP Last administered on 05/18/17 08:33; Start 05/18/17 at 08:15; Stop 05/18/17 at 08:16; Status DC Nitroglycerin (Nitrostat Sl) 0.4 mg Q5M PRN SL CHEST PAIN Last administered on 05/19/17 16:47; Start 05/18/17 at 12:00 Ondansetron HCl (Zofran Inj) 4 mg Q6H PRN IV PUSH NAUSEA OR VOMITING; Start at 12:00 Oxycodone HCl (Roxicodone) 5 mg Q4H PRN PO BREAKTHROUGH PAIN Last administered on 05/20/17 10:28; Start 05/19/17 at 00:45 Pravastatin Sodium (Pravachol) 40 mg DAILY PO Last administered on 05/20/17 08 :20; Start 05/19/17 at 09:00 Senna/Docusate Sodium (Shaista-Colace) 1 tab BID PO Last administered on 21:08; Start 05/18/17 at 21:00 Sennosides (Senokot) 17.2 mg Q12H PRN PO MODERATE - SEVERE CONSTIPATION; Start 05/18/17 at 11:15 Sodium Chloride (NS Flush) 2 ml BID IV FLUSH Last administered on 05/20/17t 08: 24; Start 05/18/17 at 21:00 (Lexie Ingram MD R2) A/P Assessment and Plan 71-year-old male with history of seizure, CVA and significant coronary artery disease/CABG who presents with chest pain, possible seizure, and fall. Patient is receiving continued workup for left extremity pain and seizures. Discharge Planning Anticipate discharge to rehab once cleared by neurology and EEG has been completed. Case management to assist with SNF placement. Likely in 2 days. (Lexie Ingram MD R2) Attending Attestation Patient seen and examined. Case reviewed and discussed Agree with plan of care as discussed with me and documented in the resident note. (Emi Mccormick MD) Problem List: (1) Fall (on) (from) other stairs and steps, initial encounter ICD Codes: W10.8XXA - Fall (on) (from) other stairs and steps, initial encounter Status: Acute Plan: Patient reports a fall the day of admission. He has had a history of falls and this typically precludes anticoagulation for A. fib. He did have superficial scrapes noted on the head and distal extremities.Pt is visually impaired. Neuro exam is grossly unremarkable today aside from pain on LUE and LLE * MRI LUE and C spine pending * Xrays performed today were negative * Neuro checks every 4 hours * PT ordered, rehabilitation recommended * Fall and seizure precautions * Seizure precautions * Pain control with oxycodone 5 mg pain 1-5, 10 mg pain 5-10, morphine IV 2 mg for breakthrough pain * Patient is already on long-acting morphine sulfate, 15 mg AM, 30 mg PM, will resume home regimen today Imaging: Brain MRI 05/18/17: Stable remote infarcts in both occipital lobes, medial right parietal lobe and right thalamus. No acute infarction, mass hemorrhage or shift. Cervical spine CT 05/18/17: No acute fracture or subluxation. Multilevel degenerative spondylosis most prominent at C4-6. Head CT: Stable appearance of old bilateral occipital lobe infarcts and right thalamic lacunar infarct. No acute intracranial abnormality. (2) History of seizure ICD Codes: Z87.898 - Personal history of other specified conditions Status: Chronic Plan: Patient history is concerning for possible seizure. He is on Keppra 750 mg twice daily at home -Neurology consulted, appreciate recommendations -EEG ordered, results pending -Close monitoring with seizure precautions -Continue Keppra at home dose -Keppra level pending -Ativan to be given PRN for break through seizures (3) Chest pain ICD Codes: R07.9 - Chest pain, unspecified Status: Acute Plan: Patient presents for chest pain with significant CAD/CABG history. He has history of CVA. Clinical history concerning for cardiac source for chest pain though patient possibly had a seizure prior to chest pain. Initial labs showing normal troponin of 0.02 and EKG with A. fib CXR unremarkable -Received aspirin 1 in ED -Cardiology consulted, appreciate recommendations -ACS ruled out troponin 0.02 x3, no ischemic changes on EKG -Pt cleared from a cardiology stand point -Titrate nasal cannula to go O2 sat greater than 94% -Morphine, oxygen, nitroglycerin when necessary -Reassess for any new chest pain -Continue statin (4) CAD (coronary artery disease) ICD Codes: I25.10 - CAD (coronary artery disease) Status: Chronic Plan: Chronic, history of CABG, management as above (5) Hypertension ICD Codes: I10 - Hypertension Status: Acute Plan: Chronic, BP within normal limits. Lisinopril 2.5mg daily is on med rec, will continue. -PRN clonidine 0.1mg q6hr PRN for SBP >180/110 -Hold for hypotension (6) Chronic back pain ICD Codes: M54.9 - Dorsalgia, unspecified; G89.29 - Other chronic pain Status: Chronic Plan: Patient has chronic back pain superimposed on acute pain from fall today. He takes morphine sulfate 15 mg in the morning, 30 mg at night. He states he is taking this dose for at least 1-2 years. * Continue home medications (7) Fluids/Electrolytes/Nutrition/Prophylaxis Plan: Fluids: tolerating PO Electrolytes: Continue to monitor Nutrition: Heart healthy diet DVT Prophylaxis: Early ambulation with assistance. Heparin 5000U subQ q12hr GI Prophylaxis: Not indicated (Lexie Ingram MD R2) Problem Qualifiers (1) Chest pain: Qualified Codes: R07.9 - Chest pain, unspecified Lexie Ingram MD R2 May 20, 2017 11:43 Emi Mccormick MD May 21, 2017 14:11
[2017-05-20 12:00] VITALS: BP 104/61; PULSE 109; RESP 20; TEMP 98.2; O2SAT 94
--- NOTE | 2017-05-20 15:38 | RADRPT ---
EXAM DATE/TIME: 05/20/2017 14:52 [facility] COMPARISON: No previous studies available for comparison. INDICATIONS : Left shoulder pain post fall 2 days ago MEDICAL HISTORY : None. SURGICAL HISTORY : None. ENCOUNTER: Initial ACUITY: 2 days PAIN SCORE: 10/10 LOCATION: Left entire shoulder FINDINGS: There is no evidence of acute fracture. Bony mineralization is normal. There is mild osteoarthritis i nvolving the acromioclavicular joint. CONCLUSION: 1. There is no evidence of acute fracture. Shalom Ty MD on May 20, 2017 at 15:36 Board Certified Radiologist. This report was verified electronically.
--- NOTE | 2017-05-20 15:54 | RADRPT ---
EXAM DATE/TIME: 05/20/2017 14:44 [facility] COMPARISON: No previous studies available for comparison. INDICATIONS : Left hip pain post fall 2 days ago MEDICAL HISTORY : None. SURGICAL HISTORY : None. ENCOUNTER: Initial ACUITY: 2 days PAIN SCORE: 10/10 LOCATION: Left entire hip FINDINGS: Examination of the left hip was performed with AP Pelvis. The primary and secondary trabecular patte rn of the femoral neck is intact. The hip joint is of normal width without significant sclerosis or bony hypertrophy. The acetabulum is grossly intact. Minimal vascular calcifications are evident. CONCLUSION: Negative for fracture or dislocation. Follow up in 7-10 days is suggested if symptoms persist. Jese Beck MD FACR on May 20, 2017 at 15:52 Board Certified Radiologist. This report was verified electronically.
--- NOTE | 2017-05-20 15:55 | RADRPT ---
EXAM DATE/TIME: 05/20/2017 14:48 [facility] COMPARISON: No previous studies available for comparison. INDICATIONS : Left knee pain post fall 2 days ago MEDICAL HISTORY : None. SURGICAL HISTORY : None. ENCOUNTER: Initial ACUITY: 2 days PAIN SCORE: 10/10 LOCATION: Left entire knee FINDINGS: Moderate joint effusion is evident. Osteophytes are projected into the patellofemoral compartment. Osteophytes are seen in the lateral compartment as well as in the compartment. Lungs anatomic. Frac ture is not appreciated. CONCLUSION: Significant degenerative changes with small joint effusion. Jese Beck MD FACR on May 20, 2017 at 15:53 Board Certified Radiologist. This report was verified electronically.
--- NOTE | 2017-05-20 15:57 | RADRPT ---
EXAM DATE/TIME: 05/20/2017 14:55 [facility] COMPARISON: No previous studies available for comparison. INDICATIONS : Neck pain post fall two days ago MEDICAL HISTORY : None. SURGICAL HISTORY : None. ENCOUNTER: Initial ACUITY: 2 days PAIN SCORE: 10/10 LOCATION: Cervical spine FINDINGS: There are degenerative changes in the cervical spine with loss of vertebral body height at C5 and C6. Posterior osteophytes are seen at C5 and C6 as well. Alignment is otherwise anatomic. Fracture is not appreciated. CONCLUSION: Degenerative changes as described above. Controlled flexion and extension films may be of benefit if the patient remains symptomatic. Jese Beck MD FACR on May 20, 2017 at 15:54 Board Certified Radiologist. This report was verified electronically.
[2017-05-20 16:00] VITALS: BP 105/67; PULSE 94; RESP 20; TEMP 98.8; O2SAT 94
--- NOTE | 2017-05-20 16:51 | RADRPT ---
EXAM DATE/TIME: 05/20/2017 15:54 [facility] COMPARISON: MRI BRAIN W & W/O CONTRAST, May 18, 2017, 22:25. INDICATIONS : Pain. Patient fell down stairs on 05/18/17. MEDICAL HISTORY : Hypertension. Seizures. Cardiovascular disease. Myocardial infarction. Diabetes. SURGICAL HISTORY : CABG Cataracts. ENCOUNTER: Subsequent ACUITY: 2 day PAIN SCORE: 5/10 LOCATION: neck TECHNIQUE: Multiplanar, multisequence MRI examination of the cervical spine was performed. FINDINGS: Sagittal T1 and T2-weighted images demonstrate adequate alignment of the cervical vertebral bodies. N o significant abnormal marrow signal is identified. There are degenerated discs throughout the cervic al spine. No significant abnormal signal is seen within the cervical cord. There are advanced degenerative changes within the atlantodens joint. The cerebellar tonsils are in their appropriate location. C2-C3: There is a small central disc bulge. The thecal space and foramina are adequate. There is mild facet arthritis bilaterally. C3-C4: There is a degenerated disc with minimal disc bulge. The thecal space and foramina are adequate. Ther e is mild facet arthritis bilaterally. C4-C5: There is a degenerated disc with broad-based disc protrusion and diffuse osteophytic ridging. There i s moderate facet arthritis bilaterally. These changes combined and result in a moderate degree of spi nal stenosis at this level. C5-C6: There is broad-based disc bulge. There is moderate facet arthritis bilaterally. There is mild osteoph ytic ridging. There is effacement of the ventral thecal sac. There is disc bulge which abuts the vent ral aspect of the cord. The foramina appear mildly narrowed bilaterally. There is moderate facet arth ritis bilaterally. C6-C7: There is a degenerated disc with broad-based disc bulge and osteophytic ridging. This effaces the alexandro tral thecal sac and just abuts the ventral aspect of the cord. The foramina appear adequate. There is mild facet arthritis bilaterally. C7-T1: The thecal sac has a normal configuration. There is no evidence of disc herniation or spinal canal s tenosis. The neural foramina are patent bilaterally. CONCLUSION: 1. Degenerative changes throughout the cervical spine. The most significant abnormalities are at the C4/5, C5/6 and C6/7 levels. These are described in detail above. Tyler Beck MD on May 20, 2017 at 16:45 Board Certified Radiologist. This report was verified electronically.
--- NOTE | 2017-05-20 18:00 | RADRPT ---
EXAM DATE/TIME: 05/20/2017 15:54 [facility] COMPARISON: SHOULDER LEFT COMPLETE (>2VWS), May 20, 2017, 14:52. INDICATIONS : Trauma. Patient fell down stairs on 05/18/17. MEDICAL HISTORY : Hypertension. Seizures. Cardiovascular disease. Myocardial infarction. Diabetes. SURGICAL HISTORY : CABG Cataracts. ENCOUNTER: Subsequent ACUITY: 2 day PAIN SCORE: 5/10 LOCATION: Left shoulder. TECHNIQUE: Multiplanar, multisequence MRI examination was performed without contrast. FINDINGS: Moderate rotator cuff tendinosis involving the distal supraspinatus and infraspinatus. There is no me asurable rotator cuff tear. Muscles of the rotator cuff are within normal limits. Chronic appearing i mpingement type cystic changes are seen of the greater tuberosity. There is mild to moderate subacromial/subdeltoid bursitis. Type I acromion. Mild subacromial spurring. There is moderate osteoarthritis of the acromioclavicular joint. No fracture or subluxation of the glenohumeral joint. There is moderate osteoarthritis. Nearly circum ferential but especially posterior and inferior degenerative tearing seen of the glenoid labrum. Ther e is an approximately 15 mm para labral cyst at the 6: 00 position. Long head biceps tendon is intact. CONCLUSION: 1. Intact left shoulder. 2. Moderate rotator cuff tendinosis. The rotator cuff is intact. 3. Mild to moderate subacromial/subdeltoid bursitis. 4. Moderate osteoarthritis of both the acromioclavicular and glenohumeral joints. 5. 6. Degenerative tearing of the posterior and inferior glenoid labrum. 15 mm chronic paralabral cyst a t 6: 7. 00. Godfrey Corona MD on May 20, 2017 at 17:55 Board Certified Radiologist. This report was verified electronically.
[2017-05-20 20:00] VITALS: BP 107/62; PULSE 75; PULSE 91; RESP 18; TEMP 98.4; O2SAT 96
[2017-05-20] MEDS: MORPHINE SULFATE 30 MG CONTROLLED RELEASE TAB PO SCH (20:12)
[2017-05-20] MEDS: NITROGLYCERIN 0.4 MG SL 25 TABS/BTL SL PRN (21:38)
[2017-05-21] VITALS: BP 108/55; PULSE 82; RESP 18; TEMP 98.5; O2SAT 95
[2017-05-21] MEDS: HEPARIN SODIUM - SQ 10,000 UNITS/ML VIAL SQ SCH ×2 (02:20→12:12)
[2017-05-21 04:00] VITALS: BP 135/63; PULSE 86; RESP 18; TEMP 97.9; O2SAT 95
[2017-05-21] MEDS: MORPHINE SULFATE 15 MG CONTROLLED RELEASE TAB PO SCH (05:39)
[2017-05-21] MEDS: MUPIROCIN 2% OINT 22 GM TUBE TOPICAL SCH ×3 (05:40→20:26)
[2017-05-21 06:58] LABS: AUTOMATED NEUTROPHIL # 3.8 TH/MM3 (1.8-7.7); BASOPHIL # 0.1 TH/MM3 (0-0.2); BASOPHIL % 0.7 % (0.0-2.0); EOSINOPHIL # 0.1 TH/MM3 (0-0.4); EOSINOPHIL % 1.3 % (0.0-4.0); HEMATOCRIT 41.5 % (39.0-51.0); HEMO FLAGS DIFF FINAL; LYMPH % 33.9 % (9.0-44.0); LYMPHOCYTE # 2.5 TH/MM3 (1.0-4.8); MEAN CELL VOLUME 88.8 FL (80.0-100.0); MEAN CORPUSCULAR HEMOGLOBIN 30.1 PG (27.0-34.0); MEAN CORPUSCULAR HGB CONC 33.9 % (32.0-36.0); MONO % 13.5 % (0.0-8.0); NEUT % 50.6 % (16.0-70.0); PLATELET COUNT 186 TH/MM3 (150-450); RED BLOOD COUNT 4.68 MIL/MM3 (4.50-5.90); RED CELL DISTRIBUTION WIDTH 14.4 % (11.6-17.2); WHITE BLOOD COUNT 7.5 TH/MM3 (4.0-11.0)
[2017-05-21 07:16] LABS: ANION GAP 8 MEQ/L (5-15); AST (GOT) 14 U/L (15-37); BICARBONATE 28.4 MEQ/L (21.0-32.0); BLOOD UREA NITROGEN 12 MG/DL (7-18); CHLORIDE 102 MEQ/L (98-107); GLOMERULAR FILTRATION RATE 81 ML/MIN (>89); MAGNESIUM 1.8 MG/DL (1.5-2.5); POTASSIUM 3.6 MEQ/L (3.5-5.1); SODIUM (NA) 138 MEQ/L (136-145)
[2017-05-21 07:17] LABS: ALT (GPT) 10 U/L (12-78)
[2017-05-21 07:19] LABS: ALKALINE PHOSPHATASE 46 U/L (45-117); TOTAL BILIRUBIN ADULT 1.7 MG/DL (0.2-1.0)
[2017-05-21 08:00] VITALS: BP 92/55; PULSE 85; RESP 20; TEMP 98.1; O2SAT 95
[2017-05-21] MEDS: RESP: ALBUTEROL 2.5 MG/IPRATROPIUM 0.5 MG NEB (SCH) NEB (08:05)
[2017-05-21] MEDS: LISINOPRIL 5 MG TAB PO SCH (08:37)
[2017-05-21] MEDS: ESCITALOPRAM OXALATE 10 MG TAB PO SCH (08:43)
[2017-05-21] MEDS: levETIRAcetam 250 MG TAB PO SCH ×2 (08:44→20:25)
[2017-05-21] MEDS: PRAVASTATIN SOD 40 MG TAB PO SCH (08:44)
[2017-05-21] MEDS: FAMOTIDINE 20 MG TAB PO SCH (08:44)
[2017-05-21] MEDS: SODIUM CHLORIDE 0.9% FLUSH 10 ML FLUSH IV FLUSH SCH ×2 (08:46→20:26)
[2017-05-21] MEDS: DOCUSATE SODIUM 50 MG/SENNA 8.6 MG TAB PO SCH ×2 (08:46→20:25)
--- NOTE | 2017-05-21 11:53 | HHI.FPPN ---
Subjective Remarks Patient seen and examined today. States he's feeling better. Still has pain in left knee, able to bend it however painful when bent. continued to have pain in left shoulder, exacerbated by movement. Reports he has not had any seizure-like activity since admission. No headache, dizziness, lightheadedness, change in vision, chest pain, shortness of breath, abdominal pain, change in bowel or urinary habits. (Jerome Gaspar MD R1) Objective Vitals Vital Signs Date Time Temp Pulse Resp B/P (MAP) Pulse Ox O2 Delivery O2 Flow Rate FiO2 05/21/17 08:20 Room Air 05/21/17 08:04 21 05/21/17 08:00 98.1 85 20 92/55 (67) 95 05/21/17 04:00 97.9 86 18 135/63 (87) 95 05/21/17 00:00 98.5 82 18 108/55 (72) 95 05/20/17 20:00 98.4 91 18 107/62 (77) 96 05/20/17 20:00 75 05/20/17 19:00 Room Air 96 05/20/17 16:00 98.8 94 20 105/67 (80) 94 05/20/17 12:00 98.2 109 20 104/61 (75) 94 I/O 05/20/17 05/20/17 05/20/17 05/21/17 05/21/17 05/21/17 07:00 15:00 23:00 07:00 15:00 23:00 Intake Total 580 ml 240 ml 0 ml Output Total 600 ml 400 ml 150 ml Balance -20 ml 240 ml -400 ml -150 ml Intake Oral 580 ml 240 ml IV Total 0 ml Output Urine Total 600 ml 400 ml 150 ml # Voids 0 # Bowel Movements 0 0 (Jerome Gaspar MD R1) Result Diagram: 05/21/17 0552 05/21/17 0552 Imaging Last 48 hours Impressions Shoulder X-Ray 05/20/17 0000 Signed Impressions: Service Date/Time: Saturday, May 20, 2017 14:52 - CONCLUSION: 1. There is no evidence of acute fracture. Shalom Ty MD Shoulder MRI 05/20/17 0000 Signed Impressions: Service Date/Time: Saturday, May 20, 2017 15:54 - CONCLUSION: 1. Intact left shoulder. 2. Moderate rotator cuff tendinosis. The rotator cuff is intact. 3. Mild to moderate subacromial/subdeltoid bursitis. 4. Moderate osteoarthritis of both the acromioclavicular and glenohumeral joints. 5. 6. Degenerative tearing of the posterior and inferior glenoid labrum. 15 mm chronic paralabral cyst at 6: 7. 00. Godfrey Corona MD Knee X-Ray 05/20/17 0000 Signed Impressions: Service Date/Time: Saturday, May 20, 2017 14:48 - CONCLUSION: Significant degenerative changes with small joint effusion. Jese Beck MD FACR Hip and Pelvis X-Ray 05/20/17 0000 Signed Impressions: Service Date/Time: Saturday, May 20, 2017 14:44 - CONCLUSION: Negative for fracture or dislocation. Follow up in 7-10 days is suggested if symptoms persist. Jese Beck MD FA[facility] Cervical Spine MRI 05/20/17 0000 Signed Impressions: Service Date/Time: Saturday, May 20, 2017 15:54 - CONCLUSION: 1. Degenerative changes throughout the cervical spine. The most significant abnormalities are at the C4/5, C5/6 and C6/7 levels. These are described in detail above. Tyler Beck MD Objective Remarks GENERAL: Well-nourished, well-developed patient. SKIN: Multiple abrasions on feet, knees, hands. HEAD: 3cm superficial laceration across right forehead, healing well EYES: Left pupil oval in shape, chronic. Reactive to light and accommodation bilaterally ENT: MMM, uvula midline, no tonsillar erythema NECK: Trachea midline. No JVD or lymphadenopathy. CARDIOVASCULAR: Regular rate and rhythm without murmurs, gallops, or rubs. Cardiac exam unremarkable. Sternotomy scar noted. RESPIRATORY: Normal work of breathing. Diffuse expiratory wheezing. Breath sounds equal bilaterally. No accessory muscle use. GASTROINTESTINAL: Abdomen soft, non-tender, nondistended. EXTREMITIES: No cyanosis, or edema. Left lateral 4th and 5th digit with superficial abrasion. Tips of bilateral feet with superficial abrasions covering petrolatum. Pain reported in left knee exam NEUROLOGICAL: Awake, alert, and oriented x 3. Non-focal. Neuro exam notable for decreased sensation left medial ankle. lift manager intact, no cerebellar dysfunction. He has 5/5 strength in extremities but complains of left upper and left lower extremity pain with resistance. Medications and IVs Current Medications Medications (Trade) Dose Ordered Sig/Romie Route Start Time Stop Time Status Last Admin (NS Flush) 2 ml UNSCH PRN IV FLUSH 05/18/17 11:15 (NS Flush) 2 ml BID IV FLUSH 05/18/17 21:00 05/21/17 08:46 (Heparin Inj) 5,000 units Q12H SQ 05/18/17 13:00 05/21/17 02:20 (Narcan Inj) 0.4 mg UNSCH PRN IV PUSH 05/18/17 11:15 (Shaista-Colace) 1 tab BID PO 05/18/17 21:00 05/20/17 20:12 (Milk Of Magnesia Liq) 30 ml Q12H PRN PO 05/18/17 11:15 (Senokot) 17.2 mg Q12H PRN PO 05/18/17 11:15 (Dulcolax Supp) 10 mg DAILY PRN RECTAL 05/18/17 11:15 (Lactulose Liq) 30 ml DAILY PRN PO 05/18/17 11:15 (Nitrostat Sl) 0.4 mg Q5M PRN SL 05/18/17 12:00 05/20/17 21:38 (Zofran Inj) 4 mg Q6H PRN IV PUSH 05/18/17 12:00 (Lexapro) 10 mg DAILY PO 05/19/17 09:00 05/21/17 08:43 (Keppra) 750 mg BID PO 05/19/17 09:00 05/21/17 08:44 (Prinivil) 2.5 mg DAILY PO 05/19/17 09:00 05/20/17 08:20 (Pravachol) 40 mg DAILY PO 05/19/17 09:00 05/21/17 08:44 (Pepcid) 20 mg DAILY PO 05/19/17 09:00 05/21/17 08:44 (Roxicodone) 5 mg Q4H PRN PO 05/19/17 00:45 05/20/17 10:28 (Catapres) 0.1 mg Q6H PRN PO 05/19/17 01:00 (Duoneb Neb) 1 ampule Q4HR NEB NEB 05/19/17 12:00 Future Hold 05/19/17 23:31 (Bactroban 2% Oint) 1 applic Q8HR TOPICAL 05/19/17 14:00 05/20/17 22:11 (Oramorph Sr) 15 mg DAILY@0600 PO 05/21/17 06:00 05/21/17 05:39 (Oramorph Sr) 30 mg DAILY@1600 PO 05/20/17 19:00 05/20/17 20:12 (Jerome Gaspar MD R1) A/P Assessment and Plan 71-year-old male with history of seizure, CVA and significant coronary artery disease/CABG who presents with chest pain, possible seizure, and fall. Patient is receiving continued workup for seizures. Discharge Planning Anticipate discharge to rehab once cleared by neurology and EEG has been completed. Case management to assist with SNF placement. Likely in 1-2 days. (Jerome Gaspar MD R1) Attending Attestation Patient seen and examined with Dr. Gaspar. Case reviewed and discussed Agree with plan of care as discussed with me and documented in the resident note. Discharge pending EEG and OT eval. Appreciate CM assistance (Emi Mccormick MD) Problem List: (1) Fall (on) (from) other stairs and steps, initial encounter ICD Codes: W10.8XXA - Fall (on) (from) other stairs and steps, initial encounter Status: Acute Plan: Patient reports a fall the day of admission. He has had a history of falls and this typically precludes anticoagulation for A. fib. He did have superficial scrapes noted on the head and distal extremities.Pt is visually impaired. Neuro exam is grossly unremarkable today aside from pain on LUE and LLE * MRI LUE and C spine show degenerative changes, osteoarthritis * Xrays performed were negative * Neuro checks every 4 hours * PT ordered, rehabilitation recommended * Fall and seizure precautions * Seizure precautions * Patient is already on long-acting morphine sulfate, 15 mg AM, 30 mg PM Imaging: Brain MRI 05/18/17: Stable remote infarcts in both occipital lobes, medial right parietal lobe and right thalamus. No acute infarction, mass hemorrhage or shift. Cervical spine CT 05/18/17: No acute fracture or subluxation. Multilevel degenerative spondylosis most prominent at C4-6. Head CT: Stable appearance of old bilateral occipital lobe infarcts and right thalamic lacunar infarct. No acute intracranial abnormality. (2) History of seizure ICD Codes: Z87.898 - Personal history of other specified conditions Status: Chronic Plan: Patient history is concerning for possible seizure. He is on Keppra 750 mg twice daily at home -Neurology consulted, appreciate recommendations -EEG ordered, results pending -Close monitoring with seizure precautions -Continue Keppra at home dose -Keppra level pending -Ativan to be given PRN for break through seizures (3) Chest pain ICD Codes: R07.9 - Chest pain, unspecified Status: Acute Plan: Patient presents for chest pain with significant CAD/CABG history. He has history of CVA. Clinical history concerning for cardiac source for chest pain though patient possibly had a seizure prior to chest pain. Initial labs showing normal troponin of 0.02 and EKG with A. fib CXR unremarkable -Received aspirin 1 in ED -Cardiology consulted, appreciate recommendations -ACS ruled out troponin 0.02 x3, no ischemic changes on EKG -Pt cleared from a cardiology stand point -Titrate nasal cannula to go O2 sat greater than 94% -Morphine, oxygen, nitroglycerin when necessary -Reassess for any new chest pain -Continue statin (4) CAD (coronary artery disease) ICD Codes: I25.10 - CAD (coronary artery disease) Status: Chronic Plan: Chronic, history of CABG, management as above (5) Hypertension ICD Codes: I10 - Hypertension Status: Acute Plan: Chronic, BP within normal limits. Lisinopril 2.5mg daily is on med rec, will continue. -PRN clonidine 0.1mg q6hr PRN for SBP >180/110 -Hold for hypotension (6) Chronic back pain ICD Codes: M54.9 - Dorsalgia, unspecified; G89.29 - Other chronic pain Status: Chronic Plan: Patient has chronic back pain superimposed on acute pain from fall today. He takes morphine sulfate 15 mg in the morning, 30 mg at night. He states he is taking this dose for at least 1-2 years. * Continue home medications (7) Fluids/Electrolytes/Nutrition/Prophylaxis Plan: Fluids: tolerating PO Electrolytes: Continue to monitor Nutrition: Heart healthy diet DVT Prophylaxis: Early ambulation with assistance. Heparin 5000U subQ q12hr GI Prophylaxis: Not indicated (Jerome Gaspar MD R1) Problem Qualifiers (1) Chest pain: Qualified Codes: R07.9 - Chest pain, unspecified Jerome Gaspar MD R1 May 21, 2017 11:53 Emi Mccormick MD May 21, 2017 14:11
[2017-05-21 12:00] VITALS: BP 116/64; PULSE 77; RESP 20; TEMP 97.6; O2SAT 96
[2017-05-21] MEDS: NITROGLYCERIN 0.4 MG SL 25 TABS/BTL SL PRN (12:11)
--- NOTE | 2017-05-21 12:43 | MG ---
cc: MANA CHEN Lab No: [id number] Date: 05/21/17 Age:71 Sex: M Race: Hyperventilation not performed. A 71-year-old man. MEDICATIONS 1. Lexapro. 2. Keppra. 3. Morphine. DESCRIPTION Symmetric diffuse alpha and beta waves are noted. The recording overall is synchronous and symmetric. No hemisphere asymmetries are noted. The recording appears quite normal. Bitemporal muscle artifact is noted as the recording goes on. His feet are twitching but that does not correlate with any epileptiform or seizure activity. Photic stimulation was performed without significant posterior driving. IMPRESSION A normal, awake EEG. No evidence for a focal or diffuse abnormality. He had a couple episodes of feet twitching but that did not correlate with any electroencephalographic abnormalities, also some body twitching, all showing normal EEG during that time including left hand twitching, all normal. MD LINA Wolf/LONNIE /11:05 AM /12:34 PM
[2017-05-21 16:00] VITALS: BP 117/62; PULSE 86; RESP 20; TEMP 98.5; O2SAT 93
[2017-05-21] MEDS: MORPHINE SULFATE 30 MG CONTROLLED RELEASE TAB PO SCH (17:09)
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
--- NOTE | 2017-05-21 17:17 | HHI.DCPOC ---
Discharge Care Plan Diagnosis: (1) Seizure (2) Fall (on) (from) other stairs and steps, initial encounter (3) History of seizure (4) Chronic back pain Goals to Promote Your Health * To prevent worsening of your condition and complications * To maintain your health at the optimal level Directions to Meet Your Goals Take your medications as prescribed Follow your dietary instruction Follow activity as directed Keep your appointments as scheduled Take your immunizations and boosters as scheduled If your symptoms worsen call your PCP, if no PCP go to Urgent Care Center or Emergency Room Smoking is Dangerous to Your Health. Avoid second hand smoke Call the 24-hour hour crisis hotline for domestic abuse at Jerome Gaspar MD R1 May 21, 2017 17:17
[2017-05-21 20:00] VITALS: BP 153/71; PULSE 106; PULSE 141; RESP 16; TEMP 99.9; O2SAT 90
[2017-05-22] VITALS: BP 128/65; PULSE 109; RESP 16; TEMP 99.4; O2SAT 92
[2017-05-22] MEDS: HEPARIN SODIUM - SQ 10,000 UNITS/ML VIAL SQ SCH ×2 (00:08→10:46)
[2017-05-22 04:00] VITALS: BP 104/68; PULSE 91; RESP 16; TEMP 98.7; O2SAT 94
[2017-05-22] MEDS: MUPIROCIN 2% OINT 22 GM TUBE TOPICAL SCH ×2 (05:07→10:46)
[2017-05-22] MEDS: MORPHINE SULFATE 15 MG CONTROLLED RELEASE TAB PO SCH (05:07)
[2017-05-22 08:00] VITALS: BP 107/61; PULSE 89; RESP 20; TEMP 99; O2SAT 91
[2017-05-22] MEDS: LISINOPRIL 5 MG TAB PO SCH (08:23)
[2017-05-22] MEDS: PRAVASTATIN SOD 40 MG TAB PO SCH (08:23)
[2017-05-22] MEDS: levETIRAcetam 250 MG TAB PO SCH (08:23)
[2017-05-22] MEDS: FAMOTIDINE 20 MG TAB PO SCH (08:24)
[2017-05-22] MEDS: ESCITALOPRAM OXALATE 10 MG TAB PO SCH (08:24)
[2017-05-22] MEDS: DOCUSATE SODIUM 50 MG/SENNA 8.6 MG TAB PO SCH (08:25)
[2017-05-22] MEDS: SODIUM CHLORIDE 0.9% FLUSH 10 ML FLUSH IV FLUSH SCH (08:25)
[2017-05-22] MEDS ORDERED: ESCI10TA PO (09:33)
[2017-05-22] MEDS ORDERED: PRAV40TA2 PO (09:33)
[2017-05-22] MEDS ORDERED: D-20TAB3 PO (09:33)
[2017-05-22] MEDS ORDERED: ASPI81CH CHEW (09:33)
[2017-05-22] MEDS ORDERED: MORP1TAB24 PO (09:33)
[2017-05-22] MEDS ORDERED: LATA.005%O EACH EYE (09:33)
[2017-05-22] MEDS ORDERED: RANI150T PO (09:33)
[2017-05-22] MEDS ORDERED: LEVE750T8 PO (09:33)
[2017-05-22] MEDS ORDERED: MAGN400T2 PO (09:33)
[2017-05-22] MEDS ORDERED: LISI-519 PO (09:33)
[2017-05-22] MEDS ORDERED: MORP1TAB25 PO (09:33)
[2017-05-22] MEDS ORDERED: FOLI400T PO (09:33)
[2017-05-22] MEDS ORDERED: VITA100021 SL (09:33)
--- NOTE | 2017-05-22 10:02 | HHI.FPPN ---
Subjective Remarks Patient seen and examined this morning. Reports some minor pain in his abrasions , no other new pains. No headache, lightheadedness, dizziness, change in vision , pain in chest, shortness of breath, abdominal pain, change in urination. Has not passed a bowel movement for several days however reports this is normal for him. Typically only eats one sandwich a day at home. Does not report any recent weight loss. Passing flatus. Objective Vitals Vital Signs Date Time Temp Pulse Resp B/P (MAP) Pulse Ox O2 Delivery O2 Flow Rate FiO2 05/22/17 08:00 99.0 89 20 107/61 (76) 91 05/22/17 04:00 98.7 91 16 104/68 (80) 94 05/22/17 00:00 99.4 109 16 128/65 (86) 92 05/21/17 20:00 141 05/21/17 20:00 Room Air 05/21/17 20:00 99.9 106 16 153/71 (98) 90 05/21/17 16:00 98.5 86 20 117/62 (80) 93 05/21/17 12:00 97.6 77 20 116/64 (81) 96 I/O 05/21/17 05/21/17 05/21/17 05/22/17 05/22/17 05/22/17 07:00 15:00 23:00 07:00 15:00 23:00 Intake Total 0 ml Output Total 400 ml 350 ml 150 ml 500 ml 125 ml Balance -400 ml -350 ml -150 ml -500 ml -125 ml IV Total 0 ml Output Urine Total 400 ml 350 ml 150 ml 500 ml 125 ml Result Diagram: 05/21/17 0552 05/21/17 0552 Objective Remarks GENERAL: Well-nourished, well-developed patient. SKIN: Multiple abrasions on feet, knees, hands. HEAD: 3cm superficial laceration across right forehead, healing well EYES: Left pupil oval in shape, chronic. Reactive to light and accommodation bilaterally ENT: MMM, uvula midline, no tonsillar erythema NECK: Trachea midline. No JVD or lymphadenopathy. CARDIOVASCULAR: Regular rate and rhythm without murmurs, gallops, or rubs. Cardiac exam unremarkable. Sternotomy scar noted. RESPIRATORY: Normal work of breathing. Diffuse expiratory wheezing. Breath sounds equal bilaterally. No accessory muscle use. GASTROINTESTINAL: Abdomen soft, non-tender, nondistended. EXTREMITIES: No cyanosis, or edema. Left lateral 4th and 5th digit with superficial abrasion. Tips of bilateral feet with superficial abrasions covering petrolatum. Pain reported in left knee exam NEUROLOGICAL: Awake, alert, and oriented x 3. Non-focal. Neuro exam notable for decreased sensation left medial ankle. double needle stitcher intact, no cerebellar dysfunction. He has 5/5 strength in extremities but complains of left upper and left lower extremity pain with resistance. A/P Assessment and Plan 71-year-old male with history of seizure, CVA and significant coronary artery disease/CABG who presents with chest pain, possible seizure, and fall. Patient is receiving continued workup for seizures. Discharge Planning Anticipate discharge to rehab once Case management to assist with SNF placement. Likely in today or tomorrow. Problem List: (1) Fall (on) (from) other stairs and steps, initial encounter ICD Codes: W10.8XXA - Fall (on) (from) other stairs and steps, initial encounter Status: Acute Plan: Patient reports a fall the day of admission. He has had a history of falls and this typically precludes anticoagulation for A. fib. He did have superficial scrapes noted on the head and distal extremities.Pt is visually impaired. Neuro exam is grossly unremarkable today aside from pain on LUE and LLE * MRI LUE and C spine show degenerative changes, osteoarthritis * Xrays performed were negative * Neuro checks every 4 hours * PT/OT ordered, rehabilitation recommended * Fall and seizure precautions * Seizure precautions * Patient is already on long-acting morphine sulfate at home, 15 mg AM, 30 mg PM , will continue Imaging: Brain MRI 05/18/17: Stable remote infarcts in both occipital lobes, medial right parietal lobe and right thalamus. No acute infarction, mass hemorrhage or shift. Cervical spine CT 05/18/17: No acute fracture or subluxation. Multilevel degenerative spondylosis most prominent at C4-6. Head CT: Stable appearance of old bilateral occipital lobe infarcts and right thalamic lacunar infarct. No acute intracranial abnormality. (2) History of seizure ICD Codes: Z87.898 - Personal history of other specified conditions Status: Chronic Plan: Patient history is concerning for possible seizure. He is on Keppra 750 mg twice daily at home -Neurology consulted, appreciate recommendations -EEG ordered, results normal -Close monitoring with seizure precautions -Continue Keppra at home dose -Keppra level within normal limits -Ativan to be given PRN for break through seizures (3) Chest pain ICD Codes: R07.9 - Chest pain, unspecified Status: Acute Plan: Patient presents for chest pain with significant CAD/CABG history. He has history of CVA. Clinical history concerning for cardiac source for chest pain though patient possibly had a seizure prior to chest pain. Initial labs showing normal troponin of 0.02 and EKG with A. fib CXR unremarkable -Received aspirin 1 in ED -Cardiology consulted, appreciate recommendations -ACS ruled out troponin 0.02 x3, no ischemic changes on EKG -Pt cleared from a cardiology stand point -Titrate nasal cannula to go O2 sat greater than 94% -Morphine, oxygen, nitroglycerin when necessary -Reassess for any new chest pain -Continue statin (4) CAD (coronary artery disease) ICD Codes: I25.10 - CAD (coronary artery disease) Status: Chronic Plan: Chronic, history of CABG, management as above (5) Hypertension ICD Codes: I10 - Hypertension Status: Acute Plan: Chronic, BP within normal limits. Lisinopril 2.5mg daily is on med rec, will continue. -PRN clonidine 0.1mg q6hr PRN for SBP >180/110 -Hold for hypotension (6) Chronic back pain ICD Codes: M54.9 - Dorsalgia, unspecified; G89.29 - Other chronic pain Status: Chronic Plan: Patient has chronic back pain superimposed on acute pain from fall today. He takes morphine sulfate 15 mg in the morning, 30 mg at night. He states he is taking this dose for at least 1-2 years. * Continue home medications (7) Hyperbilirubinemia ICD Codes: E80.6 - Other disorders of bilirubin metabolism Plan: Bilirubin 1.7 on 05/19, improved to 1.2 on 05/20, elevated on 05/21 to 1.7 again. Currently asymptomatic for any Hepatic/gallbladder illness. -Recommend follow up by primary care physician. (8) Fluids/Electrolytes/Nutrition/Prophylaxis Plan: Fluids: tolerating PO Electrolytes: Continue to monitor Nutrition: Heart healthy diet DVT Prophylaxis: Early ambulation with assistance. Heparin 5000U subQ q12hr GI Prophylaxis: Not indicated Problem Qualifiers (1) Chest pain: Qualified Codes: R07.9 - Chest pain, unspecified Jerome Gaspar MD R1 May 22, 2017 10:02
[2017-05-22 12:00] VITALS: BP 101/66; PULSE 91; RESP 20; TEMP 98.4; O2SAT 93
[2017-05-22 16:00] VITALS: BP 111/62; PULSE 84; RESP 20; TEMP 98.1; O2SAT 95
[2017-05-22] MEDS: MORPHINE SULFATE 30 MG CONTROLLED RELEASE TAB PO SCH (16:05)
[2017-05-22] MEDS: NITROGLYCERIN 0.4 MG SL 25 TABS/BTL SL PRN (16:05)
== END 2017-05-22 16:19 | DRG 101 ==
LOC: NEPC 07:51 → OBSVTOIN 09:21 → NEDA 09:21 → N04B 16:21
PROVIDERS: ADMIT Family Medicine; ATTEND Family Medicine
DX: G40.909 Epilepsy, unspecified, not intractable, without status epilepticus (principal); I69.354 Hemiplegia and hemiparesis following cerebral infarction affecting left non-dominant side; I48.2 Chronic atrial fibrillation; I25.2 Old myocardial infarction; I10 Essential (primary) hypertension; E87.6 Hypokalemia; F17.210 Nicotine dependence, cigarettes, uncomplicated; R07.9 Chest pain, unspecified; I25.10 Atherosclerotic heart disease of native coronary artery without angina pectoris; M47.892 Other spondylosis, cervical region; S00.91XA Abrasion of unspecified part of head, initial encounter; G89.29 Other chronic pain; M54.2 Cervicalgia; R29.6 Repeated falls; M54.5 Low back pain; H54.8 Legal blindness, as defined in USA; M79.641 Pain in right hand; M79.642 Pain in left hand; S60.415A Abrasion of left ring finger, initial encounter; S60.417A Abrasion of left little finger, initial encounter; S90.812A Abrasion, left foot, initial encounter; S90.811A Abrasion, right foot, initial encounter; M25.561 Pain in right knee; M25.562 Pain in left knee; E78.00 Pure hypercholesterolemia, unspecified; K21.9 Gastro-esophageal reflux disease without esophagitis; Z79.82 Long term (current) use of aspirin; Z79.899 Other long term (current) drug therapy; Z91.81 History of falling; Z95.1 Presence of aortocoronary bypass graft; W10.9XXA Fall (on) (from) unspecified stairs and steps, initial encounter
CPT/HCPCS: 70450; 70553; 71010; 72050; 72125; 72141; 73030; 73221; 73502; 73564; 80048; 80053; 80061; 80177; 80307; 81001; 82550; 82552; 82948; 83735; 83930; 84100; 84146; 84443; 84484; 85025; 85610; 85730; 86140; 93005; 94640; 94664; 95819; 99285; A9579; J1644; J2270; J2405